=== PATIENT | male | born 1950 | race Caucasian/White ===

== ENCOUNTER 2022-11-20 08:06 | Outpatient (REF) | payer OTHER, SELFPAY ==
[2022-11-20 08:23] LABS: MANUAL DIFF FLAG NO
[2022-11-20 08:51] LABS: Appearance Urine Turbid; Color Urine Yellow; Glucose Urine UA Negative (Negative); Leukocyte Esterase Urine Large (3+) (Negative); Nitrite Urine Positive (Negative); PH 5.5 (5.0-9.0); UMIC TRIGGER UACC YES; Urine Blood Moderate (2+) (Negative); Urine Ketones Trace mg/dL (Negative); Urine Protein Trace mg/dL (Neg-Trace)
[2022-11-20 09:03] LABS: Bacteria Urine 4+ (None Seen); Hyaline Casts Urine 0-2 /LPF (0-2); Squamous Epithelial Cell Urine 0-2 /HPF (0-2); UACC Culture Trigger YES; WBC Urine >50 /HPF (0-5)
[2022-11-20 09:10] LABS: Estimated Average Glucose 111 mg/dL; Hemoglobin A1c % 5.5 %
[2022-11-20 09:42] LABS: Alanine Aminotransferase 31 U/L (0-40); Albumin Level 4.4 g/dL (3.5-5.0); Alkaline Phosphatase 59 U/L (39-117); Anion Gap 13 (12-20); Aspartate Amino Transferase 24 U/L (5-37); Bilirubin Total 0.6 mg/dL (0.0-1.0); Blood Urea Nitrogen 16 mg/dL (9-16); Calcium 9.5 mg/dL (8.4-10.2); Carbon Dioxide 24 mmol/L (22-29); Chloride 109 mmol/L (96-108); Cholesterol 208 mg/dL; Estimated Glomerular Filt Rate > 60; Glucose Fasting 117 mg/dL (60-99); HDL Cholesterol 49 mg/dL; LDL Cholesterol Calculated 145 mg/dl; Potassium 4.6 mmol/L (3.3-5.1); Prostate Specific Antigen 13.47 ng/mL (<0.05-4.0); Sodium 141 mmol/L (135-145); TSH reflex Free T4 1.44 uIU/mL (0.32-4.0); Total Protein 6.6 g/dL (6.5-8.0); Triglycerides 73 mg/dL; Vitamin D 25-OH Total 22.5 ng/mL (>30)
[2022-11-20 11:57] LABS: Basophils Absolute Auto 0.1 X10*3/uL (0.0-0.2); Eosinophils Absolute Auto 0.2 X10*3/uL (0.0-0.4); Eosinophils Percent Auto 1.9 % (0-4); Hematocrit 47.6 % (42.0-52.0); Hemoglobin 16.5 g/dl (14.0-18.0); Imm Gran Abs Auto 0.05 X10*3/uL (0.00-0.03); Imm Gran Pct Auto 0.5 % (0.0-0.4); Lymphocytes Absolute Auto 2.7 X10*3/uL (1.2-4.9); Lymphocytes Percent Auto 27.8 % (20-40); Mean Corpuscular HGB Conc 34.7 g/dl (31.0-36.0); Mean Corpuscular Hemoglobin 32.2 pg (27.0-33.0); Mean Corpuscular Volume 92.8 fL (80.0-98.0); Mean Platelet Volume 12.1 fL (9.4-12.4); Monocytes Absolute Auto 0.9 X10*3/uL (0.1-1.2); Monocytes Percent Auto 9.8 % (2-11); Neutrophils Absolute Auto 5.7 x10*3/uL (2.0-8.3); Platelet Count 297 X10*3/uL (160-400); Red Blood Count 5.13 X10*6/uL (4.60-5.80); Red Cell Distribution Width 12.3 % (11.0-16.0); White Blood Count 9.6 X10*3/uL (4.8-10.8)
[2022-11-20 12:51] LABS: Erythrocyte Sedimentation Rate 2 MM/HR (0-15)
== END 2022-11-20 08:07 | disposition home or self-care (01) ==
LOC: HO.LAB 08:06
PROVIDERS: PCP Internal Medicine; Visit Provider Internal Medicine
DX: Z00.00 Encounter for general adult medical examination without abnormal findings (principal); Z12.5 Encounter for screening for malignant neoplasm of prostate; E78.00 Pure hypercholesterolemia, unspecified; E55.9 Vitamin D deficiency, unspecified; R73.9 Hyperglycemia, unspecified; H10.10 Acute atopic conjunctivitis, unspecified eye; N40.0 Benign prostatic hyperplasia without lower urinary tract symptoms
CPT/HCPCS: 36415; 80053; 80061; 81001; 82306; 83036; 84153; 84443; 85025; 85652; 87086; 87147

== ENCOUNTER → 2022-12-22 08:38 | Outpatient (BNVA) | payer OTHER, SELFPAY | PROVIDERS: PCP Internal Medicine; Visit Provider Nurse Practitioner Family | DX: Z13.89 Encounter for screening for other disorder (principal) ==

== ENCOUNTER 2022-12-25 09:31 | Outpatient (REF) | payer OTHER, SELFPAY ==
[2022-12-25 10:56] LABS: PSA,Total (Free>4and<10) 15.19 ng/mL (0.00-4.00)
== END 2022-12-25 09:32 | disposition home or self-care (01) ==
LOC: HO.LAB 09:31
PROVIDERS: PCP Internal Medicine; Visit Provider Nurse Practitioner Family
DX: Z12.5 Encounter for screening for malignant neoplasm of prostate (principal); R97.20 Elevated prostate specific antigen [PSA]
CPT/HCPCS: 36415; 84153

== ENCOUNTER → 2023-01-06 15:38 | Outpatient (BNVA) | payer OTHER, SELFPAY | PROVIDERS: PCP Internal Medicine; Visit Provider Nurse Practitioner Family | DX: Z13.89 Encounter for screening for other disorder (principal) ==

== ENCOUNTER 2023-01-27 07:14 | Outpatient (REF) | payer OTHER, SELFPAY ==
[2023-01-27 07:47] VITALS: BMI 26.6
[2023-01-27 07:48] VITALS: BP 164/77; PULSE 84; RESP 16; TEMP 36.9; O2SAT 95
--- NOTE | 2023-01-27 08:27 | W.PM.OPN ---
Operative Note Operative Note Date of Service: 01/27/23 Narrative: Preoperative diagnosis: Elevated PSA Postoperative diagnosis: Elevated PSA Procedure: 1. transrectal ultrasound measurement of prostate 2. transrectal ultrasound-guided pudendal nerve block 3. transrectal ultrasound-guided prostate biopsy 12 core Surgeon: Dr. Ac Velasquez Anesthetic: Local Indications for procedure: Elevated PSA 15 Procedure: After informed consent was verified, the patient was brought into the procedure area and lay left-hand side down on the table. Patient identity confirmed. Perioperative antibiotics confirmed. Safety pause time out performed. JAYANT performed to dilate rectal sphincter Iodine 10cc with Gel was placed per rectum Ultrasound probe was placed per rectum The prostate was measured in 3 dimensions Total volume equals 40 gm No cystic structures were noted surgical capsule calcifications were noted at the surgical margin The prostate was otherwise homogeneous in nature An ultrasound-guided pudendal nerve block was performed using 10 cc of 1% lidocaine. 8 cc was placed at the base and 2 cc of the apex. A 12 core biopsy was performed with 6 cores each side. Two cores were taken at the apex, mid and base. Cores were spaced between lateral and medial. He tolerated the procedure well. Was able to ambulate to bathroom after 5 minutes. Printed instructions regarding antibiotic use and common side effects such as low-grade temperature, potential infection and bleeding were given Pathology: 12 core prostate biopsy.
[2023-01-27 08:35] VITALS: BP 172/84; PULSE 83; RESP 16; O2SAT 97
== END 2023-01-27 07:15 | disposition home or self-care (01) ==
LOC: HO.MS 07:14
PROVIDERS: PCP Internal Medicine; Visit Provider Urology
PROC: (CPT 55700; principal; 2023-01-27 08:00)
DX: R97.20 Elevated prostate specific antigen [PSA] (principal); C61 Malignant neoplasm of prostate
CPT/HCPCS: 55700; 76942; 88305

== ENCOUNTER → 2023-02-03 11:21 | Outpatient (BNVA) | payer OTHER, SELFPAY | PROVIDERS: PCP Internal Medicine; Visit Provider Urology | DX: Z13.89 Encounter for screening for other disorder (principal) ==

== ENCOUNTER → 2023-02-15 10:39 | Outpatient (REF) | payer OTHER, SELFPAY ==
--- NOTE | ~2023-02-15 | NM_ITS ---
EXAMINATION: NM BONE SCAN OF THE WHOLE BODY CLINICAL INFORMATION: Malignant neoplasm of prostate. COMPARISON: No existing relevant imaging study available. TECHNIQUE: Multiple gamma scintillation camera images of the whole body were performed 2.75 hours following the intravenous administration of 26 mCi Tc-99m MDP. The radiotracer was injected through left antecubital superficial vein without complications. FINDINGS: In the head, asymmetric small focal increased radiotracer activity is present overlying the left maxilla/zygomatic bone. In the thoracic cage and upper extremities, asymmetric increased radiotracer activity is present at medial end of the right clavicle/right sternoclavicular joint region. Mildly increased radiotracer activities around both shoulders likely represent mild degenerative and/or arthritic or posttraumatic changes. In the spine, no suspicious focal abnormality. Mild increase radiotracer activity at the right upper cervical spine and left lower lumbar spine likely represent degenerative changes. In the pelvis, no suspicious focal abnormalities. In the lower extremities, mild periarticular increased radiotracer activities are present around both knees and both feet, most consistent with posttraumatic, degenerative and/or arthritic changes. No other definite bony abnormalities are noted. The urinary bladder and faint visualization of both kidneys are noted. NM/NM bone scan whole body IMPRESSION: 1. Asymmetric focal increased radiotracer activity in the region of the medial end of the right clavicle/sternoclavicular joint region and asymmetric focal activity in the region of the left axilla/zygomatic bone are nonspecific. There are no prior studies available at the moment for comparison. The study was read without the benefit of comparison with prior studies. Radiographic correlation is recommended. Follow-up PSMA PET/CT study may also be considered for further clarification. 2. Focal increased radiotracer activities within the upper cervical and lower lumbar spine likely present degenerative changes. 3. Likely degenerative, posttraumatic and/or nonspecific arthritic changes involving both shoulders and both knees and both feet.
== END ==
LOC: HO.NUCMED 10:39
PROVIDERS: Visit Provider Urology
DX: C61 Malignant neoplasm of prostate (principal); C79.51 Secondary malignant neoplasm of bone
CPT/HCPCS: 78306; A9503

== ENCOUNTER → 2023-02-24 13:36 | Outpatient (BNVA) | payer OTHER, SELFPAY | PROVIDERS: PCP Internal Medicine; Visit Provider Urology | DX: C61 Malignant neoplasm of prostate (principal) | CPT/HCPCS: 96402; J9217 ==

== ENCOUNTER → 2023-03-18 13:05 | Outpatient (BNVA) | payer OTHER, SELFPAY | PROVIDERS: PCP Internal Medicine; Visit Provider Urology | DX: Z13.89 Encounter for screening for other disorder (principal) ==

== ENCOUNTER 2023-03-22 11:32 | Outpatient (AMB) | payer OTHER, SELFPAY ==
--- NOTE | 2023-03-22 11:33 | MHC.OFFVIS ---
Intake Intake Visit Reasons: CT Follow Up (set) Intake Note: Patient is present for Telephone CT Scan follow up Urology Med: Bicalutamide Antibiotic Allergy: None Blood Thinner: None Allergies No Known Allergies Allergy (Mild, Verified 07/26/23 16:32) NKA HPI HPI Comments History of Present Illness Details Narayan is a patient male. He is a patient of Dr. Villasenor. He is seen for following urologic conditions - prostate cancer Telemedicine Evaluation 15 min Consultation Doximity [place] Video attempted Complete evaluation with Radiation Oncology - [facility] radiation oncology Is a suitable candidate for external beam radiation to prostate and pelvic lymph nodes Will require GnRH injections to cover 18-24 months Marker placement to be organized - plan for maximum androgen blockade with XRT Still working putting an overhead garage doors Prostate Cancer - 02/17 - high volume, high risk - 1st GnRH 03/20 PSA at diagniosis 15 Histologic type: Prostatic acinar adenocarcinoma: Thibodaux score: 3+4+7 (F); 4+3+7 (A, C, D, E,J and L); 4+4=8 (H, I, K); 4+5=9 (B) Total Cores 12 Positive Cores 12 % volume 910/1200 Periprostatic fat inv.: Not identified Seminal vesicle inv.: Not identified Perineural inv.: Present LVI: Not identified Clinical T2c - JAYANT bilateral prostate firmness Initial Staging - 02/17 bone scan degenerative changes consistent with arthritis. No evidence of metastatic prostate cancer - 03/20 CT scan pelvis no evidence of lymphadenopathy, no evidence of metastatic disease PFSH Medical History (Updated 07/26/23 @ 18:32 by Nikos Villasenor MD) Coronary atherosclerosis GERD (gastroesophageal reflux disease) Hx of coronary angiogram Insomnia Prostate cancer Pure hypercholesterolemia Surgical History (Updated 07/26/23 @ 18:15 by Nikos Villasenor MD) History of inguinal hernia repair History of right inguinal hernia repair (~04/2009) History of tonsillectomy and adenoidectomy S/P drug eluting coronary stent placement (~03/25/23) Stented coronary artery Family History Father No problems noted. Mother No problems noted. Social History (Updated 07/26/23 @ 18:35 by Nikos Villasenor MD) Housing: Apartment Patient Tobacco Use Status: Former Tobacco user e-Cigarette/Vaping Use: Never Used service: No Current occupational status: employed Cognitive needs: No Hearing needs: No Vision needs: No Review of Systems Const All systems reviewed & are unremarkable except as noted in HPI and below Reports no additional complaints Resp Reports no additional complaints GI Reports no additional complaints Reports as per HPI Musc Reports no additional complaints Physical Exam Telemedicine evaluation Appropriate responses Regular breathing rate and rhythm HEENT Head: Yes normal to inspection Ears: hearing grossly normal bilaterally Eyes General: appearance normal, both eyes and all related structures Neck Neck: Yes normal visual inspection Chest Chest palpation & inspection: normal inspection of the chest Resp Effort & Inspection: normal respiratory effort and able to speak in complete sentences Assessment & Plan Assessment & Plan (1) Prostate cancer: Comment: 02/17 high-grade, high-volume Code(s): C61 - Malignant neoplasm of prostate Plan Risks, benefits and alternatives to therapy were discussed. These include but are not limited to infection, bleeding, damage to local organs and tissues, need for further interventions. Anesthetic risks regarding cardiac arrhythmia, blood clots, and potential mortality were discussed. The patient understands the typical recovery time and the outpatient nature of the procedure. After consideration of these risks the patient gives full informed consent and they wish to move ahead with the procedure. Marker seed placement prostate Patient Instructions: Imaging studies, laboratory and physical exam results were discussed and reviewed in detail. No major barriers to patient understanding were identified. An opportunity to ask questions regarding the treatment plan was provided. All questions were answered. The patient expressed understanding and agreement with the above treatment plan. The patient is aware they should contact our office by phone for worsening of their current condition or the appearance of new urologic symptoms. Compliance is encouraged with any medications and followup testing that is ordered. It is a privilege to participate in the urologic care of your patient. If you have any questions or concerns regarding treatment for the above conditions, or other urologic issues, please do not hesitate to contact me. The office telephone contact is [phone]. This note is constructed using voice recognition software. While every effort has been made to ensure accuracy fleet administrative assistant errors may have been included. Yours sincerely, Dr Ac Velasquez MD, [facility] - Urology Providers of expert, compassionate care for the genitourinary system Telehealth Telehealth Location of provider rendering services: practice address Location of patient: address on file Patient Identification confirmed using: Name, : Yes Telehealth method: video Patient verbally consented to treatment: Yes Patient verbally consented to billing insurance company: Yes Patient informed of any privacy concerns related to visit: Yes Coding Level of Care Code Tele Est Pt Level 4 (56609) Diagnoses Prostate cancer C61
== END 2023-03-22 13:25 | disposition home or self-care (01) ==
LOC: HO.HUSH 11:32
PROVIDERS: PCP Internal Medicine; Visit Provider Urology
DX: C61 Malignant neoplasm of prostate (principal)
CPT/HCPCS: 99214

== ENCOUNTER → 2023-03-22 11:32 | Outpatient (BNVA) | payer OTHER, SELFPAY | PROVIDERS: PCP Internal Medicine; Visit Provider Urology | DX: Z13.89 Encounter for screening for other disorder (principal) ==

== ENCOUNTER 2023-04-13 12:41 | Outpatient (AMB) | payer OTHER, SELFPAY ==
[2023-04-13 12:43] VITALS: BP 124/90; PULSE 64; O2SAT 99; BMI 25.7
--- NOTE | 2023-04-13 12:43 | MHC.PC.OV ---
Vital Signs 04/13/23 12:43 Height 5 ft 6 in Weight 159 lb 6 oz BMI 25.7 BP 124/90 H Blood Pressure Location Lt brachial Position Sitting Pulse 64 Pulse Source Pulse Oximeter Pulse Oximetry (%) 99 Oxygen Delivery Method Room Air Intake Visit Reasons: [facility] [place]/26[place]23 Heart Attack Intake Note: Patient is here for a discharge follow up from [facility] due to heart attack. [employer] Wafer Required: No Accompanied by: Self / Same As Patient Allergies No Known Allergies Allergy (Mild, Verified 07/26/23 16:32) NKA Medication List - Last Reconciled 04/13/23 by Nikos Villasenor MD bicalutamide 50 mg PO DAILY bicalutamide 50 mg PO DAILY 90 days clotrimazole-betamethasone 1-0.05 % 1 appl topical BID 4 weeks famotidine (Acid Irradiated Fuel Handler (famotidine)) 10 mg PO DAILY levofloxacin 500 mg PO daily 3 days Tobacco use date assessed: 04/13/23 Fall risk assessment: No Falls in past year HPI [facility] 03/26/23 Heart Attack HPI Details Patient comes in today for his HDF follow up visit Was discharged from [facility] a couple of weeks ago Patient initially went to the emergency room at [facility] last month for chest pain He was found to be in NSTEMI and was immediately transferred to [facility] for cardiac workup and intervention He underwent cardiac catheterization on 03/25/2023 and was found to have complete obstruction of the proximal OM1 and this was stented States that his symptoms improved significantly with coronary intervention He was started on Brilinta, high-dose Atorvastatin and low-dose Aspirin, which he is currently still on He was diagnosed with prostate cancer a couple of months ago and was supposed to start treatment but this is now on hold due to his recent [place] Patient relates experiencing increased fatigue but states that he feels okay otherwise He denies any headaches or dizziness Denies any chest pains, no shortness of breath No nausea/ vomiting, no abdominal pain No change in bowel habits noted States that he has been started on several new medications and he will need all of his Rx refilled today PFSH Medical History (Updated 07/26/23 @ 18:32 by Nikos Villasenor MD) Coronary atherosclerosis GERD (gastroesophageal reflux disease) Hx of coronary angiogram Insomnia Prostate cancer Pure hypercholesterolemia Surgical History (Updated 07/26/23 @ 18:15 by Nikos Villasenor MD) History of inguinal hernia repair History of right inguinal hernia repair (~04/2009) History of tonsillectomy and adenoidectomy S/P drug eluting coronary stent placement (~03/25/23) Stented coronary artery Family History Father No problems noted. Mother No problems noted. Social History (Updated 07/26/23 @ 18:35 by Nikos Villasenor MD) Housing: Apartment Patient Tobacco Use Status: Former Tobacco user e-Cigarette/Vaping Use: Never Used service: No Current occupational status: employed Cognitive needs: No Hearing needs: No Vision needs: No Questionnaire PHQ-9 Over the last 2 weeks, how often have you been bothered by any of the following problems? 1. Little interest or pleasure in doing things: not at all 2. Feeling down, depressed, or hopeless: not at all 3. Trouble falling or staying asleep, or sleeping too much: not at all 4. Feeling tired or having little energy: not at all 5. Poor appetite or overeating: not at all 6. Feeling bad about yourself - or that you are a failure or have let yourself or your family down: not at all 7. Trouble concentrating on things, such as reading the newspaper or watching television: not at all 8. Moving or speaking so slowly that other people could have noticed. Or the opposite - being so fidgety or restless that you have been moving around a lot more than usual: not at all 9. Thoughts that you would be better off or of hurting yourself in some way: not at all Total score: 0 Depression Screening Interpretation: Negative 48091 - PHQ-9 Billing: Yes Source: Developed by Drs. Amadou Canas, Katharine Lamb, Walter Gupta and colleagues, with an educational aimee from [employer]. Thrive Questionnaire Date Thrive assessed: 04/13/23 I am a: Patient What is your living situation today?: I have a steady place to live Within the past 12 months, did the food you bought not last and you didn't have the money to get more?: Never true Within the past 12 months, did you worry whether your food would run out before you got money to buy more?: Never true Do you have trouble paying for medicines?: No Do you have trouble getting transportation to medical appointments?: No Do you have trouble paying your heating and electricity bill?: No Do you have trouble taking care of your child, family member or friend?: No Do you have trouble with day-to-day activities such as bathing, preparing meals, shopping, managing finances, etc.?: No Are you currently unemployed and looking for a job?: No Are you interested in more education?: No Currently or been in a relationship where the following occur: no concerns reported AUDIT C Alcohol Use Questionnaire (AUDIT-C) 1. How often do you have a drink containing alcohol?: 4 or more times a week 2. How many drinks containing alcohol do you have on a typical day when you are drinking?: 1 or 2 3. How often do you have six or more drinks on one occasion?: Never Total Score: 4 Score Reviewed/Action Taken: Yes RAUL-7 AMB Questionnaire RAUL-7 Date RAUL - 7 assessed: 04/13/23 Feeling nervous, anxious, or on edge: 0 = Not at all Not being able to stop or control worryin = Not at all Worrying too much about different things: 0 = Not at all Trouble relaxin = Not at all Being so restless that it is hard to sit still: 0 = Not at all Becoming easily annoyed or irritable: 0 = Not at all Feeling afraid as if something awful might happen: 0 = Not at all Total RAUL-7 score (0-4 normal; 5-9 mild; 10-14 moderate; 15-21 severe): 0 Source: Developed by Drs. Amadou Canas, Katharine Lamb, Walter Gupta and colleagues, with an educational aimee from [employer]. Review of Systems Const Denies chills, Reports fatigue, Denies fever(s) and Denies headache(s) ENT Denies dysphagia, Denies dizziness, Denies otalgia, Denies headache(s), Denies neck pain, Denies odynophagia and Denies sore throat Card Denies chest pain, Denies palpitations and Denies dyspnea Resp Denies cough and Denies dyspnea GI Denies abdominal pain, Denies constipation, Denies dysphagia, Denies heartburn, Denies diarrhea, Denies nausea, Denies odynophagia and Denies vomiting Denies dysuria, Denies nocturia and Denies urinary frequency Musc Denies neck pain Neuro Denies dizziness and Denies headache(s) Endo Reports fatigue and Denies palpitations Physical exam (Primary Care) Vital Signs: Last Vital Signs Pulse 64 04/13/23 12:43 BP 124/90 H 04/13/23 12:43 Pulse Ox 99 04/13/23 12:43 Oxygen Delivery Method Room Air 04/13/23 12:43 BMI result Body Mass Index 25.7 Tobacco/Smoking Status: Tobacco use Status Tobacco use date assessed 04/13/23 04/13/23 12:58 Patient Tobacco Use Status Never used Tobacco 04/13/23 12:58 e-Cigarette/Vaping Use Never Used 04/13/23 12:58 PHQ-9: PHQ-9 Score PHQ-9: Total score 0 07/26/23 19:25 Depression Screening Interpretation: Negative Thrive Assessment: Date of Thrive Assessment Date Thrive assessed 04/13/23 04/13/23 12:58 Currently or been in a relationship where the following occur: no concerns reported Const General: no acute distress and alert HENMT Ears: TM's normal bilaterally and EAC's normal Throat: Yes posterior oropharynx normal and Yes tonsils normal (no TP congestion) Neck Neck: Yes no lymphadenopathy and Yes supple Resp Auscultation: clear to auscultation bilaterally, no rales and no wheezes Cardio Rate: regular rate Rhythm: regular rhythm Heart sounds: no murmurs GI Palpation (GI): Soft to palpation and nontender Auscultation: normal bowel sounds Skin General skin exam: no rashes or lesions noted Extrem General: Yes no clubbing, cyanosis or edema Assessment and Plan Assessment & Plan (1) Coronary atherosclerosis: Comment: NSTEMI on 03/24/2023; cardiac cath done on 03/25/23 revealed 100% stenosis of proximal OM1 - S/P KERRY Code(s): I25.10 - Atherosclerotic heart disease of [place] coronary artery without angina pectoris Qualifiers: Coronary Disease-Associated Artery/Lesion type: [place] artery [place] vs. transplanted heart: [place] heart Associated angina: without angina Qualified Code(s): I25.10 - Atherosclerotic heart disease of [place] coronary artery without angina pectoris Plan: S/P NSTEMI in 02/2023; S/P KERRY to proximal OM1 Continue Brilinta 90 mg BID, Aspirin 81 mg QD and Metoprolol 12.5 mg BID Follow up with cardiology as scheduled (2) Pure hypercholesterolemia: Code(s): E78.00 - Pure hypercholesterolemia, unspecified Plan: Reinforced low cholesterol diet Continue Atorvastatin 80 mg QD Will recheck his labs and fasting lipids in 3 months for follow up (3) Prostatic adenocarcinoma: Code(s): C61 - Malignant neoplasm of prostate Plan: Was diagnosed a couple of months ago; Tx is now on hold due to his recent [place] Continue Bicalutamide 50 mg QD for now Follow up with urology as scheduled (4) GERD (gastroesophageal reflux disease): Code(s): K21.9 - Gastro-esophageal reflux disease without esophagitis Qualifiers: Esophagitis presence: without esophagitis Qualified Code(s): K21.9 - Gastro-esophageal reflux disease without esophagitis Plan: Dietary restrictions reinforced Continue Famotidine 10 mg QD PRN (5) Insomnia: Code(s): G47.00 - Insomnia, unspecified Qualifiers: Insomnia type: unspecified Qualified Code(s): G47.00 - Insomnia, unspecified Plan: Sleep hygiene reinforced Continue Trazodone 50 mg Q HS PRN Plan Follow up in 3 months Orders: Orders Complete Blood Count Auto Diff 3 Months I10 - Essential (primary) hypertension Comprehensive [place]. Panel Fast 3 Months E78.00 - Pure hypercholesterolemia, unspecified Lipid Panel 3 Months E78.00 - Pure hypercholesterolemia, unspecified Vitamin D 25-OH Total 3 Months E55.9 - Vitamin D deficiency, unspecified Medications: New trazodone 50 mg PO BEDTIME PRN 30 tabs 2RF insomnia 30 days G47.00 - Insomnia, unspecified atorvastatin 80 mg PO BEDTIME 90 tabs 3RF 90 days metoprolol tartrate 12.5 mg (1/2 x 25 mg) PO BID 90 tabs 3RF 90 days aspirin 81 mg PO DAILY 90 tabs 3RF 90 days ticagrelor (Brilinta) 90 mg PO BID 60 tabs 3RF 30 days Coding Level of Care Code Est Pt Level 4 (79222) Diagnoses Coronary atherosclerosis I25.10 Coronary Disease-Associated Artery/Lesion type: [place] artery [place] vs. transplanted heart: [place] heart Associated angina: without angina Pure hypercholesterolemia E78.00 Prostatic adenocarcinoma C61 GERD (gastroesophageal reflux disease) K21.9 Esophagitis presence: without esophagitis Insomnia G47.00 Insomnia type: unspecified
== END 2023-04-13 13:36 | disposition home or self-care (01) ==
LOC: HO.HMGH 12:41
PROVIDERS: PCP Internal Medicine; Visit Provider Internal Medicine
DX: I25.10 Atherosclerotic heart disease of native coronary artery without angina pectoris (principal); E78.00 Pure hypercholesterolemia, unspecified; C61 Malignant neoplasm of prostate; K21.9 Gastro-esophageal reflux disease without esophagitis; G47.00 Insomnia, unspecified
CPT/HCPCS: 99214

== ENCOUNTER 2023-06-22 14:35 | Outpatient (AMB) | payer OTHER, SELFPAY ==
--- NOTE | 2023-06-22 14:39 | MHC.OFFVIS ---
Intake Vital Signs 06/22/23 14:55 Height 5 ft 6 in Weight 161 lb 6.054 oz BMI 26.0 BP 100/62 Blood Pressure Location Lt brachial Position Sitting Pulse 79 Intake Visit Reasons: NPV/[place]/coronary angioplasty implant Intake Note: NPV w/ EKG Slitter Processed Film Required: No Accompanied by: Self / Same As Patient Allergies No Known Allergies Allergy (Mild, Verified 06/22/23 14:55) NKA Medication List - Last Reconciled 06/22/23 by Patel Ledesma MD aspirin 81 mg PO DAILY 90 days atorvastatin 80 mg PO BEDTIME 90 days bicalutamide 50 mg PO DAILY bicalutamide 50 mg PO DAILY clotrimazole-betamethasone 1-0.05 % 1 appl topical BID 4 weeks famotidine (Acid Central Office Equipment Installer (famotidine)) 10 mg PO DAILY levofloxacin 500 mg PO daily 3 days metoprolol tartrate 12.5 mg (1/2 x 25 mg) PO BID 90 days ticagrelor (Brilinta) 90 mg PO ONCE trazodone 50 mg PO BEDTIME PRN 30 days HPI HPI Comments History of Present Illness Details Narayan is here for consultation regarding coronary artery disease. [facility] documentation was reviewed. It seems that he initially went to [facility] in February with an NSTEMI. Then transferred to [facility]. Underwent cardiac catheterization and stenting of the OM1. Overall, he is generally doing okay. No clear anginal-type symptoms. Only issues generalized fatigue and tiredness. Otherwise, he also has prostate cancer and being treated for the same at Urology. [facility] Medical History (Updated 04/13/23 @ 13:24 by Nikos Villasenor MD) GERD (gastroesophageal reflux disease) Insomnia Surgical History History of inguinal hernia repair History of right inguinal hernia repair (~04/2009) History of tonsillectomy and adenoidectomy Family History Father No problems noted. Mother No problems noted. Social History Housing: Apartment Patient Tobacco Use Status: Never used Tobacco e-Cigarette/Vaping Use: Never Used service: No Current occupational status: employed Cognitive needs: No Hearing needs: No Vision needs: No Review of Systems Const Denies chills, Denies daytime sleepiness, Denies fatigue, Denies fever(s), Denies frequent falls, Denies night sweats, Denies snoring, Denies weakness, Denies weight gain and Denies weight loss Eyes Denies loss of vision ENT Denies dizziness and Denies hearing loss Card Denies chest pain, Denies chest pain with activity, Denies syncope, Denies rapid heart rate, Denies edema, Denies claudication, Denies leg edema, Denies lightheadedness, Denies palpitations, Denies dyspnea, Denies dyspnea on exertion and Denies orthopnea Resp Denies cough, Denies excessive phlegm production, Denies dyspnea, Denies dyspnea on exertion, Denies snoring and Denies wheezing GI Denies abdominal pain, Denies hematochezia, Denies change in bowel habits, Denies change in stool character, Denies heartburn, Denies nausea and Denies vomiting Denies hematuria, Denies dysuria and Denies urinary frequency Musc Denies arthralgias, Denies muscle weakness, Denies numbness and Denies tingling Skin/Breast Denies nail changes and Denies rash Neuro Denies Abnormal speech present, Denies dizziness, Denies syncope, Denies frequent falls, Denies loss of vision, Denies memory loss, Denies numbness, Denies tingling and Denies weakness Psych Denies depression and Denies memory loss Endo Denies fatigue and Denies palpitations Aller/Immun Denies wheezing Physical Exam Vital Signs: Last Vital Signs Pulse 79 06/22/23 14:55 BP 100/62 06/22/23 14:55 BMI result Body Mass Index 26.0 Const General: comfortable and no acute distress Orientation/consciousness: patient oriented x3 HEENT Other: Unremarkable Head: Yes normal to inspection Neck Neck: Yes normal visual inspection Chest Chest palpation & inspection: normal inspection of the chest Resp Auscultation: clear to auscultation bilaterally Cardio Palpation: normal PMI Heart sounds: S1 normal heart sound present, S2 normal heart sound present, no gallops, no murmurs and no rubs GI Palpation (GI): Soft to palpation Back/Spine/Pelvis Other: unremarkable Skin General skin exam: no rashes or lesions noted Neuro General: patient oriented x3 Speech: No Abnormal speech present Extrem General: Yes normal to inspection Psych Mental Status: mental status grossly normal Office Procedures EKG Details: EKG with sinus rhythm at 79/Min; no significant ST-T changes and otherwise unremarkable. [place]. [id number], Complete Assessment & Plan Assessment & Plan (1) Coronary atherosclerosis: Code(s): I25.10 - Atherosclerotic heart disease of [place] coronary artery without angina pectoris (2) Stented coronary artery: Code(s): Z95.5 - Presence of coronary angioplasty implant and graft (3) Prostate cancer: Comment: 02/17 high-grade, high-volume Code(s): C61 - Malignant neoplasm of prostate Plan [facility] documentation was reviewed. Culprit lesion was thrombotic occlusion of proximal OM 1, status post PCI. Otherwise, proximal RCA with 40% stenosis. Mid LAD 40% stenosis. Mid D2 50% stenosis. Echocardiogram with LVEF of 40-50%. Severe hypokinesis in the basal to mid inferolateral/anterolateral saunders. Mild aortic valve thickening but no significant stenosis or regurgitation. Severe posterior mitral annular calcification. Overall, he seems to be stable from cardiac standpoint. Continue aspirin long-term. Brilinta probably for 1 year. But he states that it is too expensive and hence consider switching to Plavix. 300 mg loading dose and then 75mg daily. Continue beta-blockers and statins. Follow-up lipids in due course. He states he needs to go for a prostate procedure. Ideally, wait for 6 months from the time of mi/PCI. At that time, possibly interrupt Brilinta or Plavix as required. Medications: Changed From bicalutamide 50 mg PO DAILY 90 days 90 tabs 0RF C61 - Malignant neoplasm of prostate To bicalutamide 50 mg PO DAILY C61 - Malignant neoplasm of prostate From ticagrelor (Brilinta) 90 mg PO ONCE To ticagrelor (Brilinta) 90 mg PO BID Discontinued ticagrelor (Brilinta) Discontinued Reason: Doctor's Order 90 mg PO BID 30 tabs 5RF clopidogrel (Plavix) First day take 300mg (4 tabs) then 1 tablet daily Discontinued Reason: Patient Refused 75 mg PO DAILY 30 tabs 5RF Coding Level of Care Code New Pt Level 4 (70642) Diagnoses Coronary atherosclerosis I25.10 Stented coronary artery Z95.5 Prostate cancer C61 CPT Codes EKG - CPT: 66334-[id number], Complete ([id number])
[2023-06-22 14:55] VITALS: BP 100/62; PULSE 79; BMI 26.0
== END 2023-06-22 15:21 | disposition home or self-care (01) ==
PROVIDERS: Visit Provider Internal Medicine
DX: I25.10 Atherosclerotic heart disease of native coronary artery without angina pectoris (principal); Z95.5 Presence of coronary angioplasty implant and graft; C61 Malignant neoplasm of prostate
CPT/HCPCS: 93010; 99204

== ENCOUNTER → 2023-06-22 14:35 | Outpatient (BNVA) | payer OTHER, SELFPAY | PROVIDERS: Visit Provider Internal Medicine | DX: I25.10 Atherosclerotic heart disease of native coronary artery without angina pectoris (principal); C61 Malignant neoplasm of prostate; Z95.5 Presence of coronary angioplasty implant and graft | CPT/HCPCS: 93005 ==

== ENCOUNTER 2023-07-07 09:13 | Outpatient (AMB) | payer OTHER, SELFPAY ==
--- NOTE | 2023-07-07 09:17 | MHC.OFFVIS ---
Intake Intake Visit Reasons: follow up/surgery consult (had heart attack) Intake Note: Patient is present for Surgey Consult Urology Med: Bicalutamide Antibiotic Allergy: None Blood Thinner: Aspirin Pharmacy: [facility] Patient had recent heart attack in February Patient states that he has been very weak lately, has no energy, states that he feels like he has the flu. He states that he is concerned if this is related to his prostate Allergies No Known Allergies Allergy (Mild, Verified 07/07/23 09:22) NKA Medication List - Last Reconciled 07/07/23 by Ac Velasquez MD aspirin 81 mg PO DAILY 90 days atorvastatin 80 mg PO BEDTIME 90 days bicalutamide 50 mg PO DAILY bicalutamide 50 mg PO DAILY clotrimazole-betamethasone 1-0.05 % 1 appl topical BID 4 weeks famotidine (Acid Head Of Data (famotidine)) 10 mg PO DAILY levofloxacin 500 mg PO daily 3 days metoprolol tartrate 12.5 mg (1/2 x 25 mg) PO BID 90 days ticagrelor (Brilinta) 90 mg PO BID 30 days trazodone 50 mg PO BEDTIME PRN 30 days HPI HPI Comments History of Present Illness Details Narayan is a patient male. He is a patient of Dr. Villasenor. 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 Giuliana score: 3+4+7 (F); 4+3+7 (A, C, D, E,J and L); 4+4=8 (H, I, K); 4+5=9 (B) Total Cores 12 Positive Cores 12 % volume 910/1200 Periprostatic fat inv.: Not identified Seminal vesicle inv.: Not identified Perineural inv.: Present LVI: Not identified Clinical T2c - JAYANT bilateral prostate firmness Initial Staging - 02/17 bone scan degenerative changes consistent with arthritis. No evidence of metastatic prostate cancer - 03/20 CT scan pelvis no evidence of lymphadenopathy, no evidence of metastatic disease PFSH Medical History GERD (gastroesophageal reflux disease) Insomnia Surgical History History of inguinal hernia repair History of right inguinal hernia repair (~04/2009) History of tonsillectomy and adenoidectomy Family History Father No problems noted. Mother No problems noted. Social History Housing: Apartment Patient Tobacco Use Status: Never used Tobacco e-Cigarette/Vaping Use: Never Used service: No Current occupational status: employed Cognitive needs: No Hearing needs: No Vision needs: No Review of Systems Const Denies chills and Denies fever(s) Card Reports no additional complaints and Denies syncope Resp Denies cough GI Denies abdominal pain and Denies heartburn Reports as per HPI and Denies change in libido Neuro Denies syncope Psych Denies change in libido Endo Denies change in libido Physical Exam Const General: cooperative, healthy appearing, comfortable and no acute distress Orientation/consciousness: patient oriented x3 HEENT Face and sinus: Yes normal facial exam Mouth: moist mucous membranes Neck Neck: Yes normal visual inspection, Yes full ROM and Yes trachea midline Chest Chest palpation & inspection: normal inspection of the chest Resp Effort & Inspection: normal respiratory effort, able to speak in complete sentences and no respiratory distress GI Inspection: Yes normal to inspection Back/Spine/Pelvis Cervical Spine: normal cervical lordosis Thoracic/Lumbar Spine: thoracic and lumbar spine normal to inspection Skin General skin exam: no rashes or lesions noted Neuro General: patient oriented x3, gait normal, tone normal and moves all extremities Extrem General: Yes normal to inspection and Yes capillary refill normal Assessment & Plan Assessment & Plan (1) Prostate cancer: Comment: 02/17 high-grade, high-volume Code(s): C61 - Malignant neoplasm of prostate Plan August follow-up with PSA Risks, benefits and alternatives to therapy were discussed. These include but are not limited to infection, bleeding, damage to local organs and tissues, need for further interventions. Anesthetic risks regarding cardiac arrhythmia, blood clots, and potential mortality were discussed. The patient understands the typical recovery time and the outpatient nature of the procedure. After consideration of these risks the patient gives full informed consent and they wish to move ahead with the procedure. Prostate cancer marker seed placement Orders: Orders Testosterone, Total 2 Months C61 - Malignant neoplasm of prostate Prostate Specific Antigen 2 Months C61 - Malignant neoplasm of prostate Medications: Refilled levofloxacin take 1 tablet day before procedure, 1 tablet day of procedure and 1 tablet day after procedure 500 mg PO daily 3 tabs 0RF 3 days C61 - Malignant neoplasm of prostate Patient Instructions: Imaging studies, laboratory and physical exam results were discussed and reviewed in detail. No major barriers to patient understanding were identified. An opportunity to ask questions regarding the treatment plan was provided. All questions were answered. The patient expressed understanding and agreement with the above treatment plan. The patient is aware they should contact our office by phone for worsening of their current condition or the appearance of new urologic symptoms. Compliance is encouraged with any medications and followup testing that is ordered. It is a privilege to participate in the urologic care of your patient. If you have any questions or concerns regarding treatment for the above conditions, or other urologic issues, please do not hesitate to contact me. The office telephone contact is [phone]. This note is constructed using voice recognition software. While every effort has been made to ensure accuracy regulatory manager errors may have been included. Yours sincerely, Dr Ac Velasquez MD, [facility] - Urology Providers of Expert, Compassionate Care for the Genitourinary System Coding Level of Care Code Est Pt Level 4 (83985) Diagnoses Prostate cancer C61
== END 2023-07-07 09:37 | disposition home or self-care (01) ==
PROVIDERS: Visit Provider Urology
DX: C61 Malignant neoplasm of prostate (principal)
CPT/HCPCS: 99214

== ENCOUNTER → 2023-07-07 09:13 | Outpatient (BNVA) | payer OTHER, SELFPAY | PROVIDERS: Visit Provider Urology ==

== ENCOUNTER 2023-07-16 08:01 | Outpatient (REF) | payer OTHER, SELFPAY ==
[2023-07-16 08:31] LABS: MANUAL DIFF FLAG NO
[2023-07-16 09:04] LABS: Basophils Absolute Auto 0.1 X10*3/uL (0.0-0.2); Basophils Percent Auto 0.8 % (0-2); Eosinophils Absolute Auto 0.6 X10*3/uL (0.0-0.4); Eosinophils Percent Auto 5.4 % (0-4); Hemoglobin 14.6 g/dl (14.0-18.0); Imm Gran Pct Auto 0.9 % (0.0-0.4); Lymphocytes Absolute Auto 2.7 X10*3/uL (1.2-4.9); Lymphocytes Percent Auto 25.9 % (20-40); Mean Corpuscular HGB Conc 33.2 g/dl (31.0-36.0); Mean Corpuscular Hemoglobin 31.3 pg (27.0-33.0); Mean Corpuscular Volume 94.4 fL (80.0-98.0); Mean Platelet Volume 11.9 fL (9.4-12.4); Monocytes Percent Auto 9.8 % (2-11); Neutrophils Absolute Auto 6.1 x10*3/uL (2.0-8.3); Neutrophils Percent Auto 57.2 % (45-73); Platelet Count 312 X10*3/uL (160-400); Red Blood Count 4.66 X10*6/uL (4.60-5.80); Red Cell Distribution Width 11.8 % (11.0-16.0); White Blood Count 10.6 X10*3/uL (4.8-10.8)
[2023-07-16 09:38] LABS: Alanine Aminotransferase 43 U/L (0-40); Alkaline Phosphatase 123 U/L (39-117); Anion Gap 13 (12-20); Aspartate Amino Transferase 34 U/L (5-37); Bilirubin Total 0.8 mg/dL (0.0-1.0); Blood Urea Nitrogen 10 mg/dL (9-16); Calcium 9.6 mg/dL (8.4-10.2); Carbon Dioxide 26 mmol/L (22-29); Chloride 106 mmol/L (96-108); Cholesterol 120 mg/dL; Estimated Glomerular Filt Rate > 60; Glucose Fasting 102 mg/dL (60-99); HDL Cholesterol 38 mg/dL; LDL Cholesterol Calculated 62 mg/dl; Potassium 4.2 mmol/L (3.3-5.1); Sodium 141 mmol/L (135-145); Total Protein 6.8 g/dL (6.5-8.0); Triglycerides 102 mg/dL
[2023-07-16 09:54] LABS: Prostate Specific Antigen 0.12 ng/mL (<0.05-4.0)
[2023-07-16 09:55] LABS: Vitamin D 25-OH Total 40.6 ng/mL (>30)
[2023-07-16 10:13] LABS: Appearance Urine Clear; Color Urine Yellow; Glucose Urine UA Negative (Negative); Leukocyte Esterase Urine Small (1+) (Negative); Nitrite Urine Negative (Negative); PH 5.5 (5.0-9.0); UMIC TRIGGER UACC YES; Urine Blood Trace (Negative); Urine Ketones Negative (Negative); Urine Protein Negative (Neg-Trace)
[2023-07-16 10:19] LABS: Bacteria Urine None Seen (None Seen); Hyaline Casts Urine 0-2 /LPF (0-2); Squamous Epithelial Cell Urine 0-2 /HPF (0-2); UACC Culture Trigger YES; WBC Urine 21-50 /HPF (0-5)
[2023-07-20 22:38] LABS: Testosterone, Total 26 ng/dL (250-1100)
== END 2023-07-16 08:02 | disposition home or self-care (01) ==
LOC: HO.LAB 08:01
PROVIDERS: Urology; PCP Internal Medicine; Visit Provider Internal Medicine
DX: C61 Malignant neoplasm of prostate (principal); E55.9 Vitamin D deficiency, unspecified; E78.00 Pure hypercholesterolemia, unspecified; I10 Essential (primary) hypertension; Z12.5 Encounter for screening for malignant neoplasm of prostate; R30.0 Dysuria
CPT/HCPCS: 36415; 80053; 80061; 81001; 82306; 84153; 84403; 85025; 87086; 87147

== ENCOUNTER 2023-07-19 07:20 | Outpatient (REF) | payer OTHER, SELFPAY ==
[2023-07-19 07:38] VITALS: BMI 26.0
[2023-07-19 07:42] VITALS: BP 131/77; PULSE 85; RESP 16; TEMP 36.1; O2SAT 98
--- NOTE | 2023-07-19 08:18 | W.PM.OPN ---
Operative Note Operative Note Date of Service: 07/19/23 Narrative: Preoperative diagnosis: Prostate cancer Postoperative diagnosis: Prostate cancer Procedure: 1. Transrectal ultrasound-guided pudendal nerve block 2. Transrectal ultrasound-guided visicoil seed placement Surgeon: Dr. Ac Velasquez Anesthetic: Local Indications for procedure: Prostate Cancer Procedure: After informed consent was verified, the patient was brought into the procedure area and lay left-hand side down on the table. Patient identity confirmed. Perioperative antibiotics confirmed. Gel was placed per rectum Ultrasound probe was placed per rectum A ultrasound-guided pudendal nerve block was performed using 10 cc of 1% lidocaine. 8 cc was placed at the base and 2 cc of the apex. 2 visicoil seed markers placed. 1 on the right, 1 on the left. The purpose is for triangulation. He tolerated the procedure well. Was able to ambulate to bathroom after 5 minutes. Printed instructions regarding antibiotic use and common side effects such as low-grade temperature and bleeding were given
[2023-07-19 08:20] VITALS: BP 140/69; PULSE 76; RESP 16; O2SAT 100
== END 2023-07-19 07:21 | disposition home or self-care (01) ==
LOC: HO.MS 07:20
PROVIDERS: PCP Internal Medicine; Visit Provider Urology
PROC: (CPT 55876; principal; 2023-07-19 08:00)
DX: C61 Malignant neoplasm of prostate (principal)
CPT/HCPCS: 55876; 76942; A4648

== ENCOUNTER → 2023-07-19 07:20 | Outpatient (BNV) | payer OTHER, SELFPAY | PROVIDERS: PCP Internal Medicine; Visit Provider Urology | DX: C61 Malignant neoplasm of prostate (principal) | CPT/HCPCS: 55876; 76872 ==

== ENCOUNTER 2023-07-26 16:14 | Outpatient (AMB) | payer OTHER, SELFPAY ==
[2023-07-26 16:15] VITALS: BP 124/80; PULSE 79; O2SAT 98; BMI 25.7
--- NOTE | 2023-07-26 16:15 | MHC.PC.OV ---
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: No Accompanied by: Self / Same As Patient Allergies No Known Allergies Allergy (Mild, Verified 07/26/23 16:32) NKA Medication List - Last Reconciled 07/26/23 by Nikos Villasenor MD aspirin 81 mg PO DAILY 90 days atorvastatin 80 mg PO BEDTIME 90 days bicalutamide 50 mg PO DAILY bicalutamide 50 mg PO DAILY clotrimazole-betamethasone 1-0.05 % 1 appl topical BID 4 weeks famotidine (Acid Risk Developer (famotidine)) 10 mg PO DAILY levofloxacin 500 mg PO daily 3 days metoprolol tartrate 12.5 mg (1/2 x 25 mg) PO BID 90 days ticagrelor (Brilinta) 90 mg PO BID 30 days trazodone 50 mg PO BEDTIME PRN 30 days Tobacco use date assessed: 07/26/23 Fall risk assessment: No Falls in past year Last assessed Fall Risk: 07/26/23 Dental Screening Dental Screen Date: 07/26/23 Did you have a dental visit in the last 12 months?: Yes Did you have a dental problem in the last 6 months where you did not have access to dental care?: No Was dental information given to patient?: Patient has dentist HPI Coronary artery disease HPI Details Patient comes in today for his follow up visit States that he still feels fatigued often - states that this has been going on for a while now Was diagnosed with prostate cancer earlier this year but his treatment was delayed by his ID and cardiac stenting back in February 2023 States that he just had marker seed placement about a week ago and he will be going to [facility] next week on 08/03/23 for mapping so he can started with his prostate cancer treatment finally Will be receiving external beam radiation to prostate and pelvic lymph nodes once he starts Tx He denies any fever, headaches or dizziness Denies any exertional chest pains, no increased SOB No nausea/vomiting, no abdominal pain No change in bowel habits noted Had his follow up labs done a couple of weeks ago - to discuss his results PFSH Medical History (Updated 07/26/23 @ 18:32 by Nikos Villasenor MD) Coronary atherosclerosis GERD (gastroesophageal reflux disease) Hx of coronary angiogram Insomnia Prostate cancer Pure hypercholesterolemia Surgical History (Updated 07/26/23 @ 18:15 by Nikos Villasenor MD) History of inguinal hernia repair History of right inguinal hernia repair (~04/2009) History of tonsillectomy and adenoidectomy S/P drug eluting coronary stent placement (~03/25/23) Stented coronary artery Family History Father No problems noted. Mother No problems noted. Social History (Updated 07/26/23 @ 18:35 by Nikos Villasenor MD) Housing: Apartment Patient Tobacco Use Status: Former Tobacco user e-Cigarette/Vaping Use: Never Used service: No Current occupational status: employed Cognitive needs: No Hearing needs: No Vision needs: No Questionnaire PHQ-9 Over the last 2 weeks, how often have you been bothered by any of the following problems? 1. Little interest or pleasure in doing things: not at all 2. Feeling down, depressed, or hopeless: not at all 3. Trouble falling or staying asleep, or sleeping too much: not at all 4. Feeling tired or having little energy: not at all 5. Poor appetite or overeating: not at all 6. Feeling bad about yourself - or that you are a failure or have let yourself or your family down: not at all 7. Trouble concentrating on things, such as reading the newspaper or watching television: not at all 8. Moving or speaking so slowly that other people could have noticed. Or the opposite - being so fidgety or restless that you have been moving around a lot more than usual: not at all 9. Thoughts that you would be better off or of hurting yourself in some way: not at all Total score: 0 Depression Screening Interpretation: Negative [id number] - PHQ-9 Billing: Yes Source: Developed by Drs. Amadou Canas, Katharine Lamb, Walter Gupta and colleagues, with an educational aimee from [employer]. Thrive Questionnaire Date Thrive assessed: 07/26/23 I am a: Patient What is your living situation today?: I have a steady place to live Within the past 12 months, did the food you bought not last and you didn't have the money to get more?: Never true Within the past 12 months, did you worry whether your food would run out before you got money to buy more?: Never true Do you have trouble paying for medicines?: No Do you have trouble getting transportation to medical appointments?: No Do you have trouble paying your heating and electricity bill?: No Do you have trouble taking care of your child, family member or friend?: No Do you have trouble with day-to-day activities such as bathing, preparing meals, shopping, managing finances, etc.?: No Are you currently unemployed and looking for a job?: No Are you interested in more education?: No Please select the resources that you would like help with: None Currently or been in a relationship where the following occur: no concerns reported AUDIT C Alcohol Use Questionnaire (AUDIT-C) 1. How often do you have a drink containing alcohol?: 4 or more times a week 2. How many drinks containing alcohol do you have on a typical day when you are drinking?: 1 or 2 3. How often do you have six or more drinks on one occasion?: Never Total Score: 4 Score Reviewed/Action Taken: Yes RAUL-7 AMB Questionnaire RAUL-7 Date RAUL - 7 assessed: 07/26/23 Feeling nervous, anxious, or on edge: 0 = Not at all Not being able to stop or control worryin = Not at all Worrying too much about different things: 0 = Not at all Trouble relaxin = Not at all Being so restless that it is hard to sit still: 0 = Not at all Becoming easily annoyed or irritable: 0 = Not at all Feeling afraid as if something awful might happen: 0 = Not at all Total RAUL-7 score (0-4 normal; 5-9 mild; 10-14 moderate; 15-21 severe): 0 Source: Developed by Drs. Amadou Canas, Katharine Lamb, Walter Gupta and colleagues, with an educational aimee from [employer]. Review of Systems Const Denies chills, Reports fatigue (increased lately), Denies fever(s) and Denies headache(s) ENT Denies dysphagia, Denies dizziness, Denies otalgia, Denies headache(s), Denies neck pain, Denies odynophagia and Denies sore throat Card Denies chest pain, Denies palpitations and Denies dyspnea Resp Denies cough and Denies dyspnea GI Denies abdominal pain, Denies constipation, Denies dysphagia, Denies heartburn, Denies diarrhea, Denies nausea, Denies odynophagia and Denies vomiting Denies dysuria, Denies nocturia and Denies urinary frequency Musc Denies neck pain Skin/Breast Denies rash Neuro Denies dizziness and Denies headache(s) Endo Reports fatigue (increased lately) and Denies palpitations Physical exam (Primary Care) Vital Signs: Last Vital Signs Pulse 79 07/26/23 16:15 BP 124/80 07/26/23 16:15 Pulse Ox 98 07/26/23 16:15 Oxygen Delivery Method Room Air 07/26/23 16:15 BMI result Body Mass Index 25.7 Tobacco/Smoking Status: Tobacco use Status Tobacco use date assessed 07/26/23 07/26/23 16:22 Patient Tobacco Use Status Never used Tobacco 07/26/23 16:22 e-Cigarette/Vaping Use Never Used 07/26/23 16:22 PHQ-9: PHQ-9 Score PHQ-9: Total score 0 07/26/23 16:22 Depression Screening Interpretation: Negative Thrive Assessment: Date of Thrive Assessment Date Thrive assessed 07/26/23 07/26/23 16:22 Currently or been in a relationship where the following occur: no concerns reported Const General: no acute distress, alert and tired appearing HENMT Ears: TM's normal bilaterally and EAC's normal Throat: Yes posterior oropharynx normal and Yes tonsils normal (no TP congestion) Neck Neck: Yes no lymphadenopathy and Yes supple Resp Auscultation: clear to auscultation bilaterally, no rales and no wheezes Cardio Rate: regular rate Rhythm: regular rhythm Heart sounds: no murmurs GI Palpation (GI): Soft to palpation and nontender Auscultation: normal bowel sounds Skin General skin exam: no rashes or lesions noted Extrem General: Yes no clubbing, cyanosis or edema Results Reviewed Results Reviewed: Laboratory Tests 07/16/23 07/16/23 07/16/23 08:29 08:29 08:29 WBC 10.6 Hgb 14.6 Hct 44.0 Plt Count 312 Sodium 141 Potassium 4.2 Creatinine 0.83 Estimated GFR > 60 Fasting Glucose 102 H Calcium 9.6 AST 34 ALT 43 H Triglycerides 102 Cholesterol 120 LDL Cholesterol, Calc 62 HDL Cholesterol 38 Prostate Specific Ag 0.12 25-OH Vitamin D Total 40.6 Total Testosterone Ur Specific [place] Urine Protein Urine Glucose (UA) Urine Blood 07/16/23 07/16/23 08:29 09:24 WBC Hgb Hct Plt Count Sodium Potassium Creatinine Estimated GFR Fasting Glucose Calcium AST ALT Triglycerides Cholesterol LDL Cholesterol, Calc HDL Cholesterol Prostate Specific Ag 25-OH Vitamin D Total Total Testosterone 26 L Ur Specific [place] 1.020 Urine Protein Negative Urine Glucose (UA) Negative Urine Blood Trace H Assessment and Plan Assessment & Plan (1) Coronary atherosclerosis: Comment: NSTEMI on 03/24/2023; cardiac cath done on 03/25/23 revealed 100% stenosis of proximal OM1 - S/P KERRY Code(s): I25.10 - Atherosclerotic heart disease of [place] coronary artery without angina pectoris Qualifiers: Coronary Disease-Associated Artery/Lesion type: [place] artery [place] vs. transplanted heart: [place] heart Associated angina: without angina Qualified Code(s): I25.10 - Atherosclerotic heart disease of [place] coronary artery without angina pectoris Plan: S/P NSTEMI in 02/2023; S/P KERRY to proximal OM1 Continue Brilinta 90 mg BID, Aspirin 81 mg QD and Metoprolol 12.5 mg BID Follow up with cardiology as scheduled (2) Pure hypercholesterolemia: Code(s): E78.00 - Pure hypercholesterolemia, unspecified Plan: Results of his labs done a couple of weeks ago reviewed and discussed with patient - lipids have improved significantly from previous Reinforced low cholesterol diet Continue Atorvastatin 80 mg QD Will recheck his labs and fasting lipids on 4 months for follow up (3) Prostatic adenocarcinoma: Code(s): C61 - Malignant neoplasm of prostate Plan: Just had marker seed placement done and will be going for mapping next week, after which he will start Tx with external beam radiation to prostate and to the pelvic lymph nodes Continue Bicalutamide 50 mg QD Follow up with urology as scheduled (4) GERD (gastroesophageal reflux disease): Code(s): K21.9 - Gastro-esophageal reflux disease without esophagitis Qualifiers: Esophagitis presence: without esophagitis Qualified Code(s): K21.9 - Gastro-esophageal reflux disease without esophagitis Plan: Dietary restrictions reinforced Continue Famotidine 10 mg QD PRN (5) History of herpes genitalis: Code(s): Z86.19 - Personal history of other infectious and parasitic diseases Plan: Will refill his Rx for Valtrex 1 gm BID x 10 days - to take this ONLY if he has acute flare ups of his genital herpes (6) Insomnia: Code(s): G47.00 - Insomnia, unspecified Qualifiers: Insomnia type: unspecified Qualified Code(s): G47.00 - Insomnia, unspecified Plan: Sleep hygiene reinforced Continue Trazodone 50 mg Q HS PRN Plan Follow up in 4 months Orders: Orders Lipid Panel 4 Months E78.00 - Pure hypercholesterolemia, unspecified Comprehensive [place]. Panel Fast 4 Months E78.00 - Pure hypercholesterolemia, unspecified Complete Blood Count Auto Diff 4 Months C61 - Malignant neoplasm of prostate UA CC w/rflx Micro + Cult 4 Months C61 - Malignant neoplasm of prostate, R30.0 - Dysuria Medications: New valacyclovir 1,000 mg PO BID 20 tabs 0RF 10 days B02.9 - Zoster without complications Coding Level of Care Code Est Pt Level 4 (67472) Diagnoses Coronary atherosclerosis I25.10 Coronary Disease-Associated Artery/Lesion type: [place] artery [place] vs. transplanted heart: [place] heart Associated angina: without angina Pure hypercholesterolemia E78.00 Prostatic adenocarcinoma C61 GERD (gastroesophageal reflux disease) K21.9 Esophagitis presence: without esophagitis History of herpes genitalis Z86.19 Insomnia G47.00 Insomnia type: unspecified
== END 2023-07-26 16:50 | disposition home or self-care (01) ==
PROVIDERS: PCP Internal Medicine; Visit Provider Internal Medicine
DX: K21.9 Gastro-esophageal reflux disease without esophagitis (principal); Z86.19 Personal history of other infectious and parasitic diseases; C61 Malignant neoplasm of prostate; I25.10 Atherosclerotic heart disease of native coronary artery without angina pectoris; E78.00 Pure hypercholesterolemia, unspecified; G47.00 Insomnia, unspecified
CPT/HCPCS: 99214

== ENCOUNTER 2023-08-22 14:36 | Outpatient (AMB) | payer OTHER, SELFPAY ==
[2023-08-22 14:43] VITALS: BP 92/68; PULSE 80; BMI 26.3
--- NOTE | 2023-08-22 14:43 | A.OFFVIS_ITS ---
Intake Vital Signs 08/22/23 14:43 Height 5 ft 6 in Weight 162 lb 11.218 oz BMI 26.3 BP 92/68 Blood Pressure Location Lt brachial Position Sitting Pulse 80 Pulse Source Pulse Oximeter Intake Visit Reasons: 2 mth fu Intake Note: 2 month f/u Configuration Analyst Required: No Allergies No Known Allergies Allergy (Mild, Verified 08/22/23 14:51) NKA Medication List - Last Reconciled 08/22/23 by Jeannette Dias NP-C aspirin 81 mg PO DAILY 90 days atorvastatin 80 mg PO BEDTIME 90 days bicalutamide 50 mg PO DAILY bicalutamide 50 mg PO DAILY 90 days clotrimazole-betamethasone 1-0.05 % 1 appl topical BID 4 weeks famotidine (Acid Ad Operations Coordinator (famotidine)) 10 mg PO DAILY metoprolol tartrate 12.5 mg (1/2 x 25 mg) PO BID 90 days ticagrelor (Brilinta) 90 mg PO BID 30 days trazodone 50 mg PO BEDTIME PRN 30 days HPI 2 mth fu HPI Details Narayan is a 73-year-old male with past medical history of hyperlipidemia, prostate cancer, NSTEMI 02/2023 with KERRY placed to an occluded OM 1, who presents for follow-up. Today he reports he has been doing well since his last visit in May. He denies any recurrent chest discomfort at rest or with activity. No shortness of breath, palpitations, dizziness, presyncope, syncope, PND, orthopnea or edema. Overall he feels well. 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 He is taking meds as directed. He is requesting changed to Plavix due to the high cost of Brilinta. No bleeding issues reported. [facility] Medical History Pure hypercholesterolemia Hx of coronary angiogram Insomnia Coronary atherosclerosis Prostate cancer GERD (gastroesophageal reflux disease) Surgical History S/P drug eluting coronary stent placement (~03/25/23) Stented coronary artery History of right inguinal hernia repair (~04/2009) History of inguinal hernia repair History of tonsillectomy and adenoidectomy Family History Father No problems noted. Mother No problems noted. Social History Housing: Apartment Patient Tobacco Use Status: Former Tobacco user e-Cigarette/Vaping Use: Never Used service: No Current occupational status: employed Cognitive needs: No Hearing needs: No Vision needs: No Review of Systems Const All systems reviewed & are unremarkable except as noted in HPI and below ENT Denies dizziness Card Denies chest pain, Denies chest pain at rest, Denies chest pain with activity, Denies rapid heart rate, Denies pedal edema, Denies edema, Denies leg edema, Denies lightheadedness, Denies palpitations, Denies dyspnea, Denies dyspnea on exertion and Denies orthopnea Resp Denies cough, Denies dyspnea and Denies dyspnea on exertion GI Denies hematochezia and Denies change in stool character Musc Denies abnormal gait, Denies limited range of motion, Denies muscle cramps, Denies muscle weakness, Denies numbness, Denies radiating pain into limb, Denies stiffness and Denies tingling Neuro Denies abnormal gait, Denies dizziness, Denies numbness and Denies tingling Endo Denies palpitations Physical Exam Vital Signs: Last Vital Signs Pulse 80 08/22/23 14:43 BP 92/68 08/22/23 14:43 BMI result Body Mass Index 26.3 Const General: cooperative, healthy appearing, comfortable and no acute distress Orientation/consciousness: patient oriented x3 Neck Neck: Yes normal visual inspection Resp Effort & Inspection: normal respiratory effort Auscultation: clear to auscultation bilaterally, no crackles, no rales, no rhonchi and no wheezes Cardio Jugular venous distension: no JVD Rate: regular rate Rhythm: regular rhythm Heart sounds: S1 normal heart sound present, S2 normal heart sound present, no murmurs and no rubs Neuro General: patient oriented x3 Extrem General: Yes normal to inspection Psych Appearance: grossly normal Mental Status: mental status grossly normal Speech and movement: Normal speech and movement present Assessment & Plan Assessment & Plan (1) Coronary atherosclerosis: Comment: NSTEMI on 03/24/2023; cardiac cath done on 03/25/23 revealed 100% stenosis of proximal OM1 - S/P KERRY Code(s): I25.10 - Atherosclerotic heart disease of [place] coronary artery without angina pectoris Qualifiers: Associated angina: without angina Coronary Disease-Associated Artery/Lesion type: [place] artery [place] vs. transplanted heart: [place] heart Qualified Code(s): I25.10 - Atherosclerotic heart disease of [place] coronary artery without angina pectoris Plan: NSTEMI February 2023. He underwent cardiac catheterization showing occluded OM1, PCI performed with balloon angioplasty and stent. Residual nonobstructive disease in the proximal RCA, mid LAD and mid D2. Echocardiogram done post event showed EF 40-50%, severe hypokinesis of the basal to mid inferior lateral and anterior lateral wall. He was put on aspirin indefinitely. Plavix uninterrupted for at least 1 year. He now reports Brilinta is high cost for him and requesting switched to Plavix. Will order Plavix 300 mg load followed by 75 mg daily once he uses of his current stock of Brilinta. Explained this to him in detail. Continue low-dose metoprolol and high-dose atorvastatin. Blood pressure on the low side this min visit, asymptomatic and not orthostatic. He tells me he had diarrhea on 3 occasions today and did not drink much fluid. Instructed to increase his fluid and drink a Gatorade. today. Discussed signs and symptoms of angina. Cardiology office visit in 3-4 months, sooner if needed. (2) Stented coronary artery: Comment: Cardiac catheterization 03/25/2023, occluded OM1, KERRY placed, proximal RCA 40% stenosis, mid LAD 40% stenosis, mid D2 50% stenosis Code(s): Z95.5 - Presence of coronary angioplasty implant and graft Plan: 03/25/2023 KERRY to OM1 (3) Pure hypercholesterolemia: Code(s): E78.00 - Pure hypercholesterolemia, unspecified Plan: [place] LDL goal less than 70 in patient with CAD. Labs done on 07/16/2023 shows LDL 62. Continue high-dose atorvastatin (4) Prostatic adenocarcinoma: Code(s): C61 - Malignant neoplasm of prostate Plan: Following with Oncology. Currently undergoing radiation to the prostate Medications: New clopidogrel (Plavix) On FIRST day only - Take 4 tablets ( 300mg) - then 1 tablet (75mg) once daily 75 mg PO DAILY 90 days 90 tabs 2RF Discontinued ticagrelor (Brilinta) Discontinued Reason: Doctor's Order 90 mg PO BID 30 days 60 tabs 5RF Coding Level of Care Code Est Pt Level 4 (49004) Diagnoses Atherosclerosis of [place] coronary artery of [place] heart without angina pectoris I25.10 Associated angina: without angina Coronary Disease-Associated Artery/Lesion type: [place] artery [place] vs. transplanted heart: [place] heart Stented coronary artery Z95.5 Pure hypercholesterolemia E78.00 Prostatic adenocarcinoma C61 Time Spent (min) 26
== END 2023-08-22 15:24 | disposition home or self-care (01) ==
PROVIDERS: PCP Internal Medicine; Visit Provider Nurse Practitioner Family
DX: I25.10 Atherosclerotic heart disease of native coronary artery without angina pectoris (principal); Z95.5 Presence of coronary angioplasty implant and graft; E78.00 Pure hypercholesterolemia, unspecified; C61 Malignant neoplasm of prostate
CPT/HCPCS: 99214

== ENCOUNTER → 2023-08-22 14:36 | Outpatient (BNVA) | payer OTHER, SELFPAY | PROVIDERS: PCP Internal Medicine; Visit Provider Nurse Practitioner Family ==

== ENCOUNTER 2023-09-27 14:28 | Outpatient (AMB) | payer OTHER, SELFPAY ==
--- NOTE | 2023-09-27 14:49 | MHC.OFFVIS ---
Intake Intake Visit Reasons: GnRH/PSA(PA Set) Intake Note: Patient is Present for Follow Up PSA/Eligard Injection Urology Medication: Eligard(Q6M), Bicalutamide, Antibiotic Allergies: none Blood Thinners: Plavix, Aspirin Pharmacy: [facility] Allergies No Known Allergies Allergy (Mild, Verified 08/22/23 14:51) NKA Medication List - Last Reconciled 09/27/23 by Ac Velasquez MD aspirin 81 mg PO DAILY 90 days atorvastatin 80 mg PO BEDTIME 90 days bicalutamide 50 mg PO DAILY bicalutamide 50 mg PO DAILY 90 days clopidogrel (Plavix) 75 mg PO DAILY 90 days clotrimazole-betamethasone 1-0.05 % 1 appl topical BID 4 weeks famotidine (Acid Compliance Technician (famotidine)) 10 mg PO DAILY finasteride 5 mg PO DAILY 90 days leuprolide acetate (6 month) (Eligard) 45 mg subcut [id number] metoprolol tartrate 12.5 mg (1/2 x 25 mg) PO BID 90 days trazodone 50 mg PO BEDTIME PRN 30 days HPI HPI Comments History of Present Illness Details Narayan is a patient male. He is a patient of Dr. Villasenor. 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 Disease stable 2 more weeks left with radiation Has some dizziness terazosin, switch to tamsulosin Lab work in 3 weeks Finasteride Stop bicalutamide at end of radiation Prostate Cancer - 02/17 - high volume, high risk - 1st GnRH 03/20 - EXBRT with radiation PSA at diagniosis 15 Histologic type: Prostatic acinar adenocarcinoma: [place] score: 3+4+7 (F); 4+3+7 (A, C, D, E,J and L); 4+4=8 (H, I, K); 4+5=9 (B) Total Cores 12 Positive Cores 12 % volume 910/1200 Periprostatic fat inv.: Not identified Seminal vesicle inv.: Not identified Perineural inv.: Present LVI: Not identified Clinical T2c - JAYANT bilateral prostate firmness Initial Staging - 02/17 bone scan degenerative changes consistent with arthritis. No evidence of metastatic prostate cancer - 03/20 CT scan pelvis no evidence of lymphadenopathy, no evidence of metastatic disease PFSH Medical History Pure hypercholesterolemia Hx of coronary angiogram Insomnia Coronary atherosclerosis Prostate cancer GERD (gastroesophageal reflux disease) Surgical History S/P drug eluting coronary stent placement (~03/25/23) Stented coronary artery History of right inguinal hernia repair (~04/2009) History of inguinal hernia repair History of tonsillectomy and adenoidectomy Family History Father No problems noted. Mother No problems noted. Social History Housing: Apartment Patient Tobacco Use Status: Former Tobacco user e-Cigarette/Vaping Use: Never Used service: No Current occupational status: employed Cognitive needs: No Hearing needs: No Vision needs: No Office Meds Eligard (6 month) 45 mg (6 month) subcutaneous syringe Performing Provider: Ac Velasquez MD [facility] Administered by: Anahi Marte RN on 09/27/23 15:12 Dose Route Admin Location Dispensed Lot Number Expiration Date [facility] Supervisor [place] 45 mg subcut right arm 45 mg [id number] 11/28/24 05335-544-24 [employer]. Assessment & Plan Assessment & Plan (1) Prostate cancer: Comment: 02/17 high-grade, high-volume Code(s): C61 - Malignant neoplasm of prostate Plan Three month follow-up labs tele Orders: Orders AMB Leuprolide Injection - Practice Supplied Today C61 - Malignant neoplasm of prostate Testosterone, Total 3 Months C61 - Malignant neoplasm of prostate Prostate Specific Antigen 3 Months C61 - Malignant neoplasm of prostate Medications: New finasteride 5 mg PO DAILY 90 days 90 tabs 1RF C61 - Malignant neoplasm of prostate, N13.8 - Other obstructive and reflux uropathy, N40.1 - Benign prostatic hyperplasia with lower urinary tract symptoms, R33.9 - Retention of urine, unspecified tamsulosin 0.4 mg PO BEDTIME 30 caps 1RF 30 days C61 - Malignant neoplasm of prostate, N40.1 - Benign prostatic hyperplasia with lower urinary tract symptoms, R35.1 - Nocturia Patient Instructions: Imaging studies, laboratory and physical exam results were discussed and reviewed in detail. No major barriers to patient understanding were identified. An opportunity to ask questions regarding the treatment plan was provided. All questions were answered. The patient expressed understanding and agreement with the above treatment plan. The patient is aware they should contact our office by phone for worsening of their current condition or the appearance of new urologic symptoms. Compliance is encouraged with any medications and followup testing that is ordered. It is a privilege to participate in the urologic care of your patient. If you have any questions or concerns regarding treatment for the above conditions, or other urologic issues, please do not hesitate to contact me. The office telephone contact is [phone]. This note is constructed using voice recognition software. While every effort has been made to ensure accuracy harvest contractor errors may have been included. Yours sincerely, Dr Ac Velasquez MD, [facility] - Urology Providers of Expert, Compassionate Care for the Genitourinary System Coding Level of Care Code Est Pt Level 3 (95135) Diagnoses Prostate cancer C61
== END 2023-09-27 15:53 | disposition home or self-care (01) ==
PROVIDERS: PCP Internal Medicine; Visit Provider Urology
DX: C61 Malignant neoplasm of prostate (principal)
CPT/HCPCS: 99213

== ENCOUNTER → 2023-09-27 14:28 | Outpatient (BNVA) | payer OTHER, SELFPAY | PROVIDERS: PCP Internal Medicine; Visit Provider Urology | DX: C61 Malignant neoplasm of prostate (principal) | CPT/HCPCS: 96402; J9217 ==

== ENCOUNTER 2023-10-12 10:34 | Outpatient (AMB) | payer OTHER, SELFPAY ==
--- NOTE | 2023-10-12 11:04 | MHC.OFFWIV ---
Intake Vital Signs 10/12/23 11:05 Height 5 ft 6 in Weight 161 lb BMI 26.0 BP 108/64 Blood Pressure Location Rt brachial Position Sitting Pulse 54 Pulse Source Pulse Oximeter Temp 97.9 F Temp Source Temporal Artery Scan Pulse Oximetry (%) 97 Oxygen Delivery Method Room Air Intake Visit Reasons: EP, Low back pain Intake Note: pt is here for c.o low back pain due to lifting garage door at work Patient Tobacco Use Status: Former Tobacco user Allergies No Known Allergies Allergy (Mild, Verified 10/12/23 11:06) NKA Do you need a note to return to daycare/school/sports/work: Yes HPI EP, Low back pain HPI Details Patient presents to the office for a sick visit. Complaining of lower back pain for the past week. No history of fall or trauma prior to the onset of symptoms. No urinary incontinence. No fevers or chills. Pain is worse on bending forwards or sideways. Relieve done sitting down. Pain is radiating into the gluteal area. [facility] Medical History Pure hypercholesterolemia Hx of coronary angiogram Insomnia Coronary atherosclerosis Prostate cancer GERD (gastroesophageal reflux disease) Surgical History S/P drug eluting coronary stent placement (~03/25/23) Stented coronary artery History of right inguinal hernia repair (~04/2009) History of inguinal hernia repair History of tonsillectomy and adenoidectomy Family History Father No problems noted. Mother No problems noted. Social History Housing: Apartment Patient Tobacco Use Status: Former Tobacco user e-Cigarette/Vaping Use: Never Used service: No Current occupational status: employed Cognitive needs: No Hearing needs: No Vision needs: No Physical Exam Vital Signs: Last Vital Signs Temp 97.9 F 10/12/23 11:05 Pulse 54 10/12/23 11:05 BP 108/64 10/12/23 11:05 Pulse Ox 97 10/12/23 11:05 Oxygen Delivery Method Room Air 10/12/23 11:05 BMI result Body Mass Index 26.0 Back/Spine/Pelvis Other: No spinal tenderness. No paraspinal spasm. Assessment & Plan Assessment & Plan (1) Low back pain: Code(s): M54.50 - Low back pain, unspecified Plan: Meloxicam and cyclobenzaprine called in. Patient was advised rest. Note for work if necessary provided. Once pain symptoms subside, patient should start physical therapy. If symptoms worsen to follow-up here. Patient already has a meloxicam prescription at home. Medications: New cyclobenzaprine 10 mg PO BEDTIME 14 tabs 0RF cyclobenzaprine 10 mg PO BEDTIME 14 tabs 0RF Coding Level of Care Code Est Pt Level 3 (21640) Diagnoses Low back pain M54.50
[2023-10-12 11:05] VITALS: BP 108/64; PULSE 54; TEMP 36.6; O2SAT 97; BMI 26.0
== END 2023-10-12 11:53 | disposition home or self-care (01) ==
PROVIDERS: PCP Internal Medicine; Visit Provider Internal Medicine
DX: M54.50 Low back pain, unspecified (principal)
CPT/HCPCS: 99213

== ENCOUNTER 2023-10-19 15:51 | Outpatient (AMB) | payer OTHER, SELFPAY ==
--- NOTE | 2023-10-19 15:55 | A.OFFVIS_ITS ---
Intake Intake Visit Reasons: 3 month (marker placement) Allergies No Known Allergies Allergy (Mild, Verified 10/12/23 11:06) NKA Medication List - Last Reconciled 10/19/23 by Ac Velasquez MD aspirin 81 mg PO DAILY 90 days atorvastatin 80 mg PO BEDTIME 90 days bicalutamide 50 mg PO DAILY bicalutamide 50 mg PO DAILY 90 days clopidogrel (Plavix) 75 mg PO DAILY 90 days clotrimazole-betamethasone 1-0.05 % 1 appl topical BID 4 weeks cyclobenzaprine 10 mg PO BEDTIME cyclobenzaprine 10 mg PO BEDTIME finasteride 5 mg PO DAILY 90 days leuprolide acetate (6 month) (Eligard) 45 mg subcut [id number] metoprolol tartrate 12.5 mg (1/2 x 25 mg) PO BID 90 days tamsulosin 0.4 mg PO BEDTIME 30 days tizanidine 4 mg PO Q8H PRN trazodone 50 mg PO BEDTIME PRN 30 days HPI HPI Comments History of Present Illness Details Narayan is a patient male. He is a patient of Dr. Villasenor. He is seen for following urologic conditions - prostate cancer - radiation oncology [facility] Telemedicine Evaluation 15 min Consultation [employer] [place] [employer] attempted Had heart attack in January 2023 after GnRH injection Delayed marker seed placement Will proceed with seed placement Has recovered from single-vessel disease with stent placement 07/20 P 0.12, T 26 GnRH 09/19 Burning at end of urination. Maybe some healing. Prostate Cancer - 02/17 - high volume, high risk - 1st GnRH 03/20 - EXBRT with radiation MAB during therap y completed 10/20 (bicalutamide, finasteride, GnRH) Dr Jade Pompa PSA at diagniosis 15 Initial therapy external beam radiation with bicalutamide, GnRH, finasteride. Dr. Jade Pompa Histologic type: Prostatic acinar adenocarcinoma: [place] score: 3+4+7 (F); 4+3+7 (A, C, D, E,J and L); 4+4=8 (H, I, K); 4+5=9 (B) Total Cores 12 Positive Cores 12 % volume 910/1200 Periprostatic fat inv.: Not identified Seminal vesicle inv.: Not identified Perineural inv.: Present LVI: Not identified Clinical T2c - JAYANT bilateral prostate firmness Initial Staging - 02/17 bone scan degenerative changes co nsistent with arthritis. No evidence of metastatic prostate cancer - 03/20 CT scan pelvis no evidence of lym phadenopathy, no evidence of metastatic disease PFSH Medical History Pure hypercholesterolemia Hx of coronary angiogram Insomnia Coronary atherosclerosis Prostate cancer GERD (gastroesophageal reflux disease) Surgical History S/P drug eluting coronary stent placement (~03/25/23) Stented coronary artery History of right inguinal hernia repair (~04/2009) History of inguinal hernia repair History of tonsillectomy and adenoidectomy Family History Father No problems noted. Mother No problems noted. Housing: Apartment Patient Tobacco Use Status: Former Tobacco user e-Cigarette/Vaping Use: Never Used service: No Current occupational status: employed Cognitive needs: No Hearing needs: No Vision needs: No Review of Systems Const All systems reviewed & are unremarkable except as noted in HPI and below Reports no additional complaints Resp Reports no additional complaints GI Reports no additional complaints Reports as per HPI Musc Reports no additional complaints Physical Exam Telemedicine evaluation Appropriate responses Regular breathing rate and rhythm HEENT Head: Yes normal to inspection Ears: hearing grossly normal bilaterally Eyes General: appearance normal, both eyes and all related structures Neck Neck: Yes normal visual inspection Chest Chest palpation & inspection: normal inspection of the chest Resp Effort & Inspection: normal respiratory effort and able to speak in complete sentences Assessment & Plan Assessment & Plan (1) Prostatic adenocarcinoma: Comment: High-grade, initial therapy external beam radiation with GnRH Code(s): C61 - Malignant neoplasm of prostate Plan Three month follow-up labs Orders: Orders Testosterone, Total 3 Months C61 - Malignant neoplasm of prostate Prostate Specific Antigen 3 Months C61 - Malignant neoplasm of prostate Patient Instructions: Imaging studies, laboratory and physical exam results were discussed and reviewed in detail. No major barriers to patient understanding were identified. An opportunity to ask questions regarding the treatment plan was provided. All questions were answered. The patient expressed understanding and agreement with the above treatment plan. The patient is aware they should contact our office by phone for worsening of their current condition or the appearance of new urologic symptoms. Compliance is encouraged with any medications and followup testing that is ordered. It is a privilege to participate in the urologic care of your patient. If you have any questions or concerns regarding treatment for the above conditions, or other urologic issues, please do not hesitate to contact me. The office telephone contact is [phone]. This note is constructed using voice recognition software. While every effort has been made to ensure accuracy trade specialist errors may have been included. Yours sincerely, Dr Ac Velasquez MD, [facility] - Urology Providers of Expert, Compassionate Care for the Genitourinary System Telehealth Telehealth Location of provider rendering services: practice address Location of patient: address on file Patient Identification confirmed using: Name, : Yes Telehealth method: video Patient verbally consented to treatment: Yes Patient verbally consented to billing insurance company: Yes Patient informed of any privacy concerns related to visit: Yes Coding Level of Care Code Tele Est Pt Level 3 (00647) Diagnoses Prostatic adenocarcinoma C61
== END 2023-10-19 16:05 | disposition home or self-care (01) ==
LOC: HO.HUSH 15:51
PROVIDERS: PCP Internal Medicine; Visit Provider Urology
DX: C61 Malignant neoplasm of prostate (principal)
CPT/HCPCS: 99213

== ENCOUNTER → 2023-10-19 15:51 | Outpatient (BNVA) | payer OTHER, SELFPAY | PROVIDERS: PCP Internal Medicine; Visit Provider Urology ==

== ENCOUNTER 2023-10-22 11:09 | Outpatient (AMB) | payer OTHER, SELFPAY ==
--- NOTE | 2023-10-22 12:20 | AM.OFFWIN_ITS ---
Intake Vital Signs 10/22/23 12:26 Height 5 ft 6 in Weight 73.028 kg BMI 26.0 BP 110/70 Blood Pressure Location Lt brachial Position Sitting Pulse 78 Pulse Source Pulse Oximeter Pulse Oximetry (%) 98 Oxygen Delivery Method Room Air Intake Visit Reasons: EP UTI Intake Note: Patient here for UTi, he states he has burning everywhere. states he has had these symptoms for a few weeks but has worsened the last couple of days. Pt states he started Radiation in August and ended October 10 for phase 2 prostate cancer and gets hormone shots and goes back in 3 months. Patient Tobacco Use Status: Former Tobacco user Allergies No Known Allergies Allergy (Mild, Verified 10/22/23 12:29) NKA Do you need a note to return to daycare/school/sports/work: No HPI HPI Comments History of Present Illness Details 73-year-old male presents for evaluation for 39 days of dysuria, urgency, and discomfort to the perineal area. Patient receives radiation for prostate cancer, and feel that most of his symptoms are related to the treatments received. He does not report any fevers or chills. [facility] Medical History Pure hypercholesterolemia Hx of coronary angiogram Insomnia Coronary atherosclerosis Prostate cancer GERD (gastroesophageal reflux disease) Surgical History S/P drug eluting coronary stent placement (~03/25/23) Stented coronary artery History of right inguinal hernia repair (~04/2009) History of inguinal hernia repair History of tonsillectomy and adenoidectomy Family History Father No problems noted. Mother No problems noted. Housing: Apartment Patient Tobacco Use Status: Former Tobacco user e-Cigarette/Vaping Use: Never Used service: No Current occupational status: employed Cognitive needs: No Hearing needs: No Vision needs: No Review of Systems Const Details: Constitutional: No Fever, No Chills ENT/Mouth: No Ear Pain, No Hoarseness, No sore throat Eyes: No Eye Pain, No Swelling, No Redness, No Foreign Body Cardiovascular: No Chest Pain, No SOB Respiratory: No Cough, No Dyspnea Gastrointestinal: No Nausea, No Vomiting, No Diarrhea, No abdominal Pain Genitourinary: Positive for urgency and Dysuria, No Hematuria, positive irritation to the penis anus and buttocks Musculoskeletal: No joint pain, No Myalgias, No Joint Swelling Skin: No Skin lacerations, No rash Neuro: No Weakness, No Numbness, No Paresthesias, No Dizziness, No Headache All systems reviewed & are unremarkable except as noted in HPI and below Physical Exam Vital Signs: Last Vital Signs Pulse 78 10/22/23 12:26 BP 110/70 10/22/23 12:26 Pulse Ox 98 10/22/23 12:26 Oxygen Delivery Method Room Air 10/22/23 12:26 BMI result Body Mass Index 26.0 Appearance: Alert. Oriented X3. No acute distress. Eyes: Pupils equal, round and reactive to light. ENT: Pharynx normal. Neck: Normal inspection. Neck supple. CVS: Normal heart rate and rhythm. Pulses normal. Respiratory: No respiratory distress. Breath sounds normal. Abdomen: Soft and nontender. Skin: Skin warm and dry. Normal skin color. Normal skin turgor. Genitourinary: Skin excoriated the glans, shaft, perineum, around the anus and between the buttocks. Extremities: No lower extremity edema. Neuro: No motor deficit. No sensory deficit. Results AMB Urinalysis, Automated UA Leukoctes 0 Ela/uL Last Edit by RADHA Treviño on 10/22/23 12:26 UA Nitrite Negative Last Edit by RADHA Treviño on 10/22/23 12:26 UA Urobilinogen 0.2 mg/dL Last Edit by RADHA Treviño on 10/22/23 12:26 UA Protein 100 mg/dL Last Edit by RADHA Treviño on 10/22/23 12:26 UA pH 5.5 Last Edit by RADHA Treviño on 10/22/23 12:26 UA Blood 200 Prince/uL Last Edit by RADHA Treviño on 10/22/23 12:26 UA Specific [place] 1.030 Last Edit by RADHA Treviño on 10/22/23 12:26 UA Ketone Positive Last Edit by RADHA Treviño on 10/22/23 12:26 UA Bilirubin 1 mg/dL Last Edit by Stewart Cox CCM on 10/22/23 12:26 UA Glucose 0 mg/dL Last Edit by RADHA Treviño on 10/22/23 12:26 Results Reviewed Results Reviewed: Laboratory Last Values Urine pH (Auto) 5.5 10/22/23 12:24 Specific [place] (Auto) 1.030 10/22/23 12:24 Urine Protein (Auto) 100 mg/dL 10/22/23 12:24 Glucose (UA)(Auto) 0 mg/dL 10/22/23 12:24 Urine Ketones (Auto) Positive 10/22/23 12:24 Urine Blood (Auto) 200 Prince/uL 10/22/23 12:24 Urine Nitrite (Auto) Negative 10/22/23 12:24 Urine Bilirubin (Auto) 1 mg/dL 10/22/23 12:24 Urine Urobilinogen (Auto) 0.2 mg/dL 10/22/23 12:24 Leukocyte Esterase (Auto) 0 Ela/uL 10/22/23 12:24 Assessment & Plan Assessment & Plan (1) Dysuria: Code(s): R30.0 - Dysuria Plan 73-year-old male presents with dysuria, penile irritation, and anal itching mostly related to the radiation treatment that he has been receiving for prostate cancer. Penis, shaft of penis, and perineum excoriated, consistent with patient's history of radiation. 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 While urinalysis indicates team, and elevated proteins, I do feel that it would be appropriate to treat this patient for UTI symptoms and prostatitis. I will treat with topical nystatin cream rather than p.o. medications as patient drinks alcohol daily, supportive measure with Pyridium. Patient will call Dr. Velasquez on [place] for evaluation. Patient verbalized understanding of and agreed to plan of care discharge home. Verbalized understanding of signs symptoms and pain need for emergent intervention. Orders: Orders UA CC w/rflx Micro + Cult Today R30.0 - Dysuria AMB Urinalysis Automated Today Z13.9 - Encounter for screening, unspecified Medications: New cefuroxime axetil 500 mg PO Q12H 7 days 14 tabs 0RF phenazopyridine (Pyridium) 100 mg PO TID PRN 6 tabs 0RF pain nystatin 1 appl topical TID 30 grams 2RF Patient Instructions: You were evaluated for urinary symptoms. This is most likely prostatitis. You do have some skin excoriation consistent with candidiasis. For suspected prostatitis, take cefuroxime 500 mg every 12 hours for the next 7 days. For candidiasis use nystatin cream 3 times a day for the next week, then twice a day for the next 2 weeks. Take Pyridium every 8 hours as needed for bladder spasms. Take all other medications that were prescribed to you by prior providers as directed. Follow-up with Dr. Velasquez on Tuesday. Thank you for choosing this urgent care for evaluation. Please follow-up with primary care physician as needed. Return to the emergency department for any new, concerning, or worsening symptoms. Coding Level of Care Code Est Pt Level 3 (79798) Diagnoses Dysuria R30.0
[2023-10-22 12:26] VITALS: BP 110/70; PULSE 78; O2SAT 98; BMI 26.0
== END 2023-10-22 13:35 | disposition home or self-care (01) ==
PROVIDERS: PCP Internal Medicine; Visit Provider Nurse Practitioner Family
DX: R30.0 Dysuria (principal)
CPT/HCPCS: 81003; 99051; 99213

== ENCOUNTER 2023-10-22 15:21 | Outpatient (REF) | payer OTHER, SELFPAY | END 2023-10-22 15:22 | disposition home or self-care (01) | LOC: HO.HHCLNP 15:21 | PROVIDERS: Visit Provider Nurse Practitioner Family | DX: R30.0 Dysuria (principal) | CPT/HCPCS: 87086; 87088; 87186 ==

== ENCOUNTER 2023-11-07 16:03 | Outpatient (AMB) | payer OTHER, SELFPAY ==
[2023-11-07 16:05] VITALS: BP 100/60; PULSE 80; O2SAT 99; BMI 26.1
--- NOTE | 2023-11-07 16:05 | A.OFFPC_ITS ---
Vital Signs 11/07/23 16:05 Height 5 ft 6 in Weight 162 lb BMI 26.1 BP 100/60 Blood Pressure Location Lt brachial Position Sitting Pulse 80 Pulse Source Pulse Oximeter Pulse Oximetry (%) 99 Oxygen Delivery Method Room Air Intake Visit Reasons: hyperlipidemia, CAD, prostate CA, GERD Training Representative Required: No Log Data Technician: Not Required per policy Accompanied by: Self / Same As Patient Allergies No Known Allergies Allergy (Mild, Verified 01/20/24 15:39) NKA Medication List - Last Reconciled 11/07/23 by Nikos Villasenor MD aspirin 81 mg PO DAILY 90 days atorvastatin 80 mg PO BEDTIME 90 days clopidogrel (Plavix) 75 mg PO DAILY 90 days clotrimazole-betamethasone 1-0.05 % 1 appl topical BID 4 weeks cyclobenzaprine 10 mg PO BEDTIME cyclobenzaprine 10 mg PO BEDTIME finasteride 5 mg PO DAILY 90 days leuprolide acetate (6 month) (Eligard) 45 mg subcut [id number] levofloxacin 250 mg PO DAILY 7 days metoprolol tartrate 12.5 mg (1/2 x 25 mg) PO BID 90 days nystatin 1 appl topical TID phenazopyridine (Pyridium) 100 mg PO TID PRN 6 doses tamsulosin 0.4 mg PO BEDTIME 30 days terazosin 5 mg PO BEDTIME tizanidine 4 mg PO Q8H PRN tranexamic acid 650 mg PO BID 5 days trazodone 50 mg PO BEDTIME PRN 30 days Tobacco use date assessed: 07/26/23 Fall risk assessment: No Falls in past year Last assessed Fall Risk: 11/07/23 Dental Screening Dental Screen Date: 11/07/23 Did you have a dental visit in the last 12 months?: Yes Did you have a dental problem in the last 6 months where you did not have access to dental care?: No Was dental information given to patient?: Patient has dentist HPI hyperlipidemia, CAD, prostate CA, GERD HPI Details Patient comes in today for his follow up visit He just completed about 6 weeks of radiation Tx for his prostate cancer at [facility] a couple of weeks ago States that he also recently broke out with an itchy rash over his buttocks and inguinal areas but the rash is starting to clear up now Reports that he's had some irritation when urinating and has also noticed some blood at times in his urine lately Was treated empirically with 7 days on oral Levofloxacin and states that his sym ptoms are now starting to improve He denies any fever or chills; denies any headaches or dizziness Denies any chest pains, no SOB No nausea/vomiting, no abdominal pain No change in bowel habits noted He was not able to get his follow up labs done prior to his appointment today [facility] Medical History Overweight (BMI 25.0-29.9) Pure hypercholesterolemia Hx of coronary angiogram Insomnia Coronary atherosclerosis Prostate cancer GERD (gastroesophageal reflux disease) Surgical History S/P drug eluting coronary stent placement (~03/25/23) Stented coronary artery History of right inguinal hernia repair (~04/2009) History of inguinal hernia repair History of tonsillectomy and adenoidectomy Family History Father No problems noted. Mother No problems noted. Social History Housing: Apartment Patient Tobacco Use Status: Former Tobacco user e-Cigarette/Vaping Use: Never Used service: No Current occupational status: employed Cognitive needs: No Hearing needs: No Vision needs: No Questionnaire PHQ-9 Over the last 2 weeks, how often have you been bothered by any of the following problems? Depression Screening Interpretation: Negative Depression Screening Done: Yes Source: Developed by Drs. Amadou Canas, Walter Patricia and colleagues, with an educational aimee from [employer]. Thrive Questionnaire Date Thrive assessed: 07/26/23 Currently or been in a relationship where the following occur: no concerns reported RAUL-7 AMB Questionnaire RAUL-7 Date RAUL - 7 assessed: 07/26/23 Source: Developed by Drs. Amadou Canas, Walter Patricia and colleagues, with an educational aimee from [employer]. Review of Systems Const Denies chills, Reports fatigue, Denies fever(s) and Denies headache(s) ENT Denies dysphagia, Denies dizziness, Denies otalgia, Denies headache(s), Denies neck pain, Denies odynophagia and Denies sore throat Card Denies chest pain, Denies palpitations and Denies dyspnea Resp Denies cough and Denies dyspnea GI Denies abdominal pain, Denies constipation, Denies dysphagia, Denies heartburn, Denies diarrhea, Denies nausea, Denies odynophagia and Denies vomiting Reports hematuria (occasionally recently - clearing up lately), Denies dysuria (but (+) irritation/dysuria on urination - improving with Abx Tx), Denies nocturia and Denies urinary frequency Musc Denies back pain and Denies neck pain Skin/Breast Reports rash (itchy - over the buttocks and inguinal areas but improving lately) Neuro Denies dizziness and Denies headache(s) Endo Reports fatigue and Denies palpitations Physical exam (Primary Care) Vital Signs: Last Vital Signs Pulse 80 11/07/23 16:05 BP 100/60 11/07/23 16:05 Pulse Ox 99 11/07/23 16:05 Oxygen Delivery Method Room Air 11/07/23 16:05 BMI result Body Mass Index 26.1 Tobacco/Smoking Status: Tobacco use Status Tobacco use date assessed 07/26/23 11/07/23 16:06 Patient Tobacco Use Status Former Tobacco user 11/07/23 16:06 e-Cigarette/Vaping Use Never Used 11/07/23 16:06 Depression Screening Interpretation: Negative Thrive Assessment: Date of Thrive Assessment Date Thrive assessed 07/26/23 11/07/23 16:06 Currently or been in a relationship where the following occur: no concerns reported Const General: no acute distress, alert and tired appearing HENMT Ears: TM's normal bilaterally and EAC's normal Throat: Yes posterior oropharynx normal and Yes tonsils normal (no TP congestion) Neck Neck: Yes no lymphadenopathy and Yes supple Resp Auscultation: clear to auscultation bilaterally, no rales and no wheezes Cardio Rate: regular rate Rhythm: regular rhythm Heart sounds: no murmurs GI Palpation (GI): Soft to palpation and nontender Auscultation: normal bowel sounds General: Yes no CVA tenderness Back/Spine/Pelvis Back: no CVA tenderness Thoracic/Lumbar Spine: No lumbar spinal tenderness Skin Rashes: rashes noted ((+) residual scaling rash over the buttocks and inguinal areas bilaterally) Extrem General: Yes no clubbing, cyanosis or edema Assessment and Plan Assessment & Plan (1) Coronary atherosclerosis: Comment: NSTEMI on 03/24/2023; cardiac cath done on 03/25/23 revealed 100% stenosis of proximal OM1 - S/P KERRY Code(s): I25.10 - Atherosclerotic heart disease of [place] coronary artery without angina pectoris Qualifiers: Coronary Disease-Associated Artery/Lesion type: [place] artery [place] vs. transplanted heart: [place] heart Associated angina: without angina Qualified Code(s): I25.10 - Atherosclerotic heart disease of [place] coronary artery without angina pectoris Plan: S/P NSTEMI in 02/2023; S/P KERRY to proximal OM1 Continue Brilinta 90 mg BID, Aspirin 81 mg QD and Metoprolol 12.5 mg BID Follow up with cardiology as scheduled (2) Pure hypercholesterolemia: Code(s): E78.00 - Pure hypercholesterolemia, unspecified Plan: Patient was not able to get his follow up labs done prior to his appt today - is advised to try to get them done SAM Reinforced low cholesterol diet Continue Atorvastatin 80 mg QD (3) Prostatic adenocarcinoma: Comment: high-grade, initial therapy external beam radiation with GnRH Code(s): C61 - Malignant neoplasm of prostate Plan: He recently completed 6 weeks of Tx with external beam radiation to prostate and to the pelvic lymph nodes and seems to be doing okay Continue Bicalutamide 50 mg QD Follow up with urology as scheduled (4) GERD (gastroesophageal reflux disease): Code(s): K21.9 - Gastro-esophageal reflux disease without esophagitis Qualifiers: Esophagitis presence: without esophagitis Qualified Code(s): K21.9 - Gastro-esophageal reflux disease without esophagitis Plan: Dietary restrictions reinforced Continue Famotidine 10 mg QD PRN (5) History of herpes genitalis: Code(s): Z86.19 - Personal history of other infectious and parasitic diseases Plan: Continue Valtrex 1 gm BID x 10 days ONLY when he has acute flare ups of his genital herpes (6) Insomnia: Code(s): G47.00 - Insomnia, unspecified Qualifiers: Insomnia type: unspecified Qualified Code(s): G47.00 - Insomnia, unspecified Plan: Sleep hygiene reinforced Continue Trazodone 50 mg Q HS PRN (7) Overweight (BMI 25.0-29.9): Code(s): E66.3 - Overweight Plan: Reinforced diet/exercise as tolerated/lose weight Plan Follow up in 2 months Coding Level of Care Code Est Pt Level 4 (64506) Diagnoses Atherosclerosis of [place] coronary artery of [place] heart without angina pectoris I25.10 Coronary Disease-Associated Artery/Lesion type: [place] artery [place] vs. transplanted heart: [place] heart Associated angina: without angina Pure hypercholesterolemia E78.00 Prostatic adenocarcinoma C61 Gastroesophageal reflux disease without esophagitis K21.9 Esophagitis presence: without esophagitis History of herpes genitalis Z86.19 Insomnia, unspecified type G47.00 Insomnia type: unspecified Overweight (BMI 25.0-29.9) E66.3
== END 2023-11-07 17:02 | disposition home or self-care (01) ==
PROVIDERS: PCP Internal Medicine; Visit Provider Internal Medicine
DX: I25.10 Atherosclerotic heart disease of native coronary artery without angina pectoris (principal); E78.00 Pure hypercholesterolemia, unspecified; C61 Malignant neoplasm of prostate; K21.9 Gastro-esophageal reflux disease without esophagitis; Z86.19 Personal history of other infectious and parasitic diseases; G47.00 Insomnia, unspecified; E66.3 Overweight
CPT/HCPCS: 99214

== ENCOUNTER 2023-11-10 15:15 | Outpatient (REF) | payer OTHER, SELFPAY ==
[2023-11-10 15:40] LABS: MANUAL DIFF FLAG NO
[2023-11-10 17:50] LABS: Appearance Urine Clear; Color Urine Yellow; Glucose Urine UA Negative (Negative); Leukocyte Esterase Urine Trace (Negative); Nitrite Urine Negative (Negative); PH 5.5 (5.0-9.0); Specific Gravity - Urine 1.015 (1.005-1.025); UMIC TRIGGER UACC YES; Urine Blood Large (3+) (Negative); Urine Ketones Negative (Negative); Urine Protein 30 (1+) mg/dL (Neg-Trace)
[2023-11-10 18:07] LABS: Bacteria Urine None Seen (None Seen); Hyaline Casts Urine 0-2 /LPF (0-2); RBC Urine >20 /HPF (0-2); Squamous Epithelial Cell Urine 0-2 /HPF (0-2); UACC Culture Trigger YES
[2023-11-10 18:12] LABS: Basophils Absolute Auto 0.1 X10*3/uL (0.0-0.2); Basophils Percent Auto 0.5 % (0-2); Eosinophils Absolute Auto 0.2 X10*3/uL (0.0-0.4); Eosinophils Percent Auto 1.6 % (0-4); Hematocrit 39.7 % (42.0-52.0); Hemoglobin 13.4 g/dl (14.0-18.0); Imm Gran Abs Auto 0.06 X10*3/uL (0.00-0.03); Imm Gran Pct Auto 0.5 % (0.0-0.4); Lymphocytes Absolute Auto 1.3 X10*3/uL (1.2-4.9); Lymphocytes Percent Auto 11.9 % (20-40); Mean Corpuscular HGB Conc 33.8 g/dl (31.0-36.0); Mean Corpuscular Hemoglobin 32.4 pg (27.0-33.0); Mean Corpuscular Volume 95.9 fL (80.0-98.0); Mean Platelet Volume 11.7 fL (9.4-12.4); Monocytes Absolute Auto 0.9 X10*3/uL (0.1-1.2); Monocytes Percent Auto 8.3 % (2-11); Neutrophils Absolute Auto 8.5 x10*3/uL (2.0-8.3); Neutrophils Percent Auto 77.2 % (45-73); Platelet Count 210 X10*3/uL (160-400); Red Blood Count 4.14 X10*6/uL (4.60-5.80); Red Cell Distribution Width 13.3 % (11.0-16.0)
== END 2023-11-10 15:16 | disposition home or self-care (01) ==
LOC: HO.LAB 15:15
PROVIDERS: PCP Internal Medicine; Visit Provider Internal Medicine
DX: Z12.5 Encounter for screening for malignant neoplasm of prostate (principal); C61 Malignant neoplasm of prostate; R82.90 Unspecified abnormal findings in urine
CPT/HCPCS: 36415; 81001; 85025; 87086

== ENCOUNTER 2023-11-12 08:02 | Outpatient (REF) | payer OTHER, SELFPAY ==
[2023-11-12 10:40] LABS: Alanine Aminotransferase 26 U/L (0-40); Alkaline Phosphatase 62 U/L (39-117); Anion Gap 12 (12-20); Aspartate Amino Transferase 26 U/L (5-37); Bilirubin Total 0.6 mg/dL (0.0-1.0); Blood Urea Nitrogen 19 mg/dL (9-16); Calcium 9.1 mg/dL (8.4-10.2); Carbon Dioxide 24 mmol/L (22-29); Chloride 111 mmol/L (96-108); Cholesterol 143 mg/dL (<200); Estimated Glomerular Filt Rate > 60; Glucose Fasting 107 mg/dL (60-99); HDL Cholesterol 55 mg/dL (>40); LDL Cholesterol Calculated 77 mg/dL (<100); Potassium 3.8 mmol/L (3.3-5.1); Sodium 143 mmol/L (135-145); Total Protein 6.3 g/dL (6.5-8.0); Triglycerides 59 mg/dL (<150)
[2023-11-12 11:49] LABS: Appearance Urine Cloudy; Color Urine Yellow; Glucose Urine UA Negative (Negative); Leukocyte Esterase Urine Trace (Negative); Nitrite Urine Negative (Negative); PH 5.5 (5.0-9.0); UMIC TRIGGER UACC YES; Urine Blood Large (3+) (Negative); Urine Ketones Negative (Negative); Urine Protein 100 (2+) mg/dL (Neg-Trace)
[2023-11-12 11:56] LABS: Bacteria Urine None Seen (None Seen); Hyaline Casts Urine 0-2 /LPF (0-2); RBC Urine >20 /HPF (0-2); Squamous Epithelial Cell Urine 0-2 /HPF (0-2); UACC Culture Trigger YES
== END 2023-11-12 08:03 | disposition home or self-care (01) ==
LOC: HO.LAB 08:02
PROVIDERS: PCP Internal Medicine; Visit Provider Internal Medicine
DX: E78.00 Pure hypercholesterolemia, unspecified (principal)
CPT/HCPCS: 36415; 80053; 80061; 81001

== ENCOUNTER 2023-11-23 15:00 | Outpatient (AMB) | payer OTHER, SELFPAY ==
--- NOTE | 2023-11-23 15:03 | MHC.OFFVIS ---
Intake Vital Signs 11/23/23 15:04 Height 5 ft 6 in Weight 160 lb 4.417 oz BMI 25.9 BP 104/62 Blood Pressure Location Lt brachial Position Sitting Pulse 73 Intake Visit Reasons: 3 + f/up Intake Note: 3 month follow up Production Supv Required: No Accompanied by: Self / Same As Patient Allergies No Known Allergies Allergy (Mild, Verified 11/23/23 15:07) NKA Medication List - Last Reconciled 11/23/23 by Patel Ledesma MD aspirin 81 mg PO DAILY 90 days atorvastatin 80 mg PO BEDTIME 90 days clopidogrel (Plavix) 75 mg PO DAILY 90 days clotrimazole-betamethasone 1-0.05 % 1 appl topical BID 4 weeks cyclobenzaprine 10 mg PO BEDTIME finasteride 5 mg PO DAILY 90 days leuprolide acetate (6 month) (Eligard) 45 mg subcut [id number] metoprolol tartrate 12.5 mg (1/2 x 25 mg) PO BID 90 days nystatin 1 appl topical TID phenazopyridine (Pyridium) 100 mg PO TID PRN terazosin 5 mg PO BEDTIME 90 days tizanidine 4 mg PO Q8H PRN tranexamic acid 650 mg PO BID HPI HPI Comments History of Present Illness Details Narayan returns for follow-up. Few months back, he was seen in consultation regarding coronary disease. [facility] documentation was reviewed. It seems that he initially went to [facility] in February with an NSTEMI. Then transferred to [facility]. Underwent cardiac catheterization and stenting of the OM1. From a cardiac standpoint, he does not have any anginal-type symptoms or in fact anything else of major concern. Otherwise, he also has prostate cancer and being treated for the same at Urology. 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 [facility] Medical History Pure hypercholesterolemia Hx of coronary angiogram Insomnia Coronary atherosclerosis Prostate cancer GERD (gastroesophageal reflux disease) Surgical History S/P drug eluting coronary stent placement (~03/25/23) Stented coronary artery History of right inguinal hernia repair (~04/2009) History of inguinal hernia repair History of tonsillectomy and adenoidectomy Family History Father No problems noted. Mother No problems noted. Social History Housing: Apartment Patient Tobacco Use Status: Former Tobacco user e-Cigarette/Vaping Use: Never Used service: No Current occupational status: employed Cognitive needs: No Hearing needs: No Vision needs: No Review of Systems Const Denies weakness ENT Denies dizziness Card Denies chest pain, Denies chest pain with activity, Denies syncope, Denies rapid heart rate, Denies pedal edema, Denies edema, Denies leg edema, Denies lightheadedness, Denies palpitations, Denies dyspnea, Denies dyspnea on exertion and Denies orthopnea Resp Denies cough, Denies dyspnea and Denies dyspnea on exertion GI Denies hematochezia and Denies change in stool character Musc Denies abnormal gait, Denies muscle cramps, Denies muscle weakness, Denies numbness, Denies radiating pain into limb and Denies tingling Neuro Denies abnormal gait, Denies dizziness, Denies syncope, Denies numbness, Denies tingling and Denies weakness Endo Denies palpitations Physical Exam Vital Signs: Last Vital Signs Pulse 73 11/23/23 15:04 BP 104/62 11/23/23 15:04 BMI result Body Mass Index 25.9 Const General: comfortable and no acute distress Orientation/consciousness: patient oriented x3 HEENT Other: Unremarkable Head: Yes normal to inspection Neck Neck: Yes normal visual inspection Chest Chest palpation & inspection: normal inspection of the chest Resp Auscultation: clear to auscultation bilaterally Cardio Palpation: normal PMI Heart sounds: S1 normal heart sound present, S2 normal heart sound present, no gallops, no murmurs and no rubs GI Palpation (GI): Soft to palpation Back/Spine/Pelvis Other: unremarkable Skin General skin exam: no rashes or lesions noted Neuro General: patient oriented x3 Extrem General: Yes normal to inspection Psych Mental Status: mental status grossly normal Assessment & Plan Assessment & Plan (1) Coronary atherosclerosis: Comment: NSTEMI on 03/24/2023; cardiac cath done on 03/25/23 revealed 100% stenosis of proximal OM1 - S/P KERRY Code(s): I25.10 - Atherosclerotic heart disease of [place] coronary artery without angina pectoris Qualifiers: Associated angina: without angina Coronary Disease-Associated Artery/Lesion type: [place] artery [place] vs. transplanted heart: [place] heart Qualified Code(s): I25.10 - Atherosclerotic heart disease of [place] coronary artery without angina pectoris (2) Stented coronary artery: Comment: Cardiac catheterization 03/25/2023, occluded OM1, KERRY placed, proximal RCA 40% stenosis, mid LAD 40% stenosis, mid D2 50% stenosis Code(s): Z95.5 - Presence of coronary angioplasty implant and graft (3) Prostate cancer: Comment: 02/17 high-grade, high-volume Code(s): C61 - Malignant neoplasm of prostate Plan [facility] documentation was reviewed. Culprit lesion was thrombotic occlusion of proximal OM 1, status post PCI. Otherwise, proximal RCA with 40% stenosis. Mid LAD 40% stenosis. Mid D2 50% stenosis. Echocardiogram with LVEF of 40-50%. Severe hypokinesis in the basal to mid inferolateral/anterolateral sa[place]. Mild aortic valve thickening but no significant stenosis or regurgitation. Severe posterior mitral annular calcification. We will treat for stable coronary disease. Continue aspirin indefinitely. He was initially on Brilinta but now on Plavix. We continue this for 1 year from time of stenting and then stop it. Continue beta-blockers and statins. Cholesterol level seems well controlled. Follow-up in 6 months time. At that time, recheck echocardiogram to assess for any residual wall motion abnormality/cardiomyopathy. Orders: Orders CA echo transthoracic complete 6 Months I25.10 - Atherosclerotic heart disease of [place] coronary artery without angina pectoris Medications: Changed From cyclobenzaprine 10 mg PO BEDTIME 14 tabs 0RF To cyclobenzaprine 10 mg PO BEDTIME From tranexamic acid 650 mg PO BID 5 days 10 tabs 0RF To tranexamic acid 650 mg PO BID From phenazopyridine (Pyridium) 100 mg PO TID PRN 6 tabs 0RF pain To phenazopyridine (Pyridium) 100 mg PO TID PRN Coding Level of Care Code Est Pt Level 4 (14680) Diagnoses Atherosclerosis of [place] coronary artery of [place] heart without angina pectoris I25.10 Associated angina: without angina Coronary Disease-Associated Artery/Lesion type: [place] artery [place] vs. transplanted heart: [place] heart Stented coronary artery Z95.5 Prostate cancer C61
[2023-11-23 15:04] VITALS: BP 104/62; PULSE 73; BMI 25.9
== END 2023-11-23 15:30 | disposition home or self-care (01) ==
PROVIDERS: PCP Internal Medicine; Visit Provider Internal Medicine
DX: I25.10 Atherosclerotic heart disease of native coronary artery without angina pectoris (principal); Z95.5 Presence of coronary angioplasty implant and graft; C61 Malignant neoplasm of prostate
CPT/HCPCS: 99214

== ENCOUNTER → 2023-11-23 15:00 | Outpatient (BNVA) | payer OTHER, SELFPAY | PROVIDERS: PCP Internal Medicine; Visit Provider Internal Medicine ==

== ENCOUNTER 2023-12-21 16:14 | Outpatient (REF) | payer OTHER, MEDICARE, SELFPAY ==
[2023-12-21 19:09] LABS: Prostate Specific Antigen < 0.10 ng/mL (<0.05-4.0)
[2023-12-28 14:03] LABS: Testosterone, Total 3 ng/dL (250-1100)
== END 2023-12-21 16:15 | disposition home or self-care (01) ==
LOC: HO.LAB 16:14
PROVIDERS: PCP Internal Medicine; Visit Provider Urology
DX: Z12.5 Encounter for screening for malignant neoplasm of prostate (principal); C61 Malignant neoplasm of prostate
CPT/HCPCS: 36415; 84153; 84403

== ENCOUNTER 2024-01-10 13:29 | Outpatient (REF) | payer OTHER, MEDICARE, SELFPAY ==
[2024-01-10 15:01] LABS: Prostate Specific Antigen < 0.10 ng/mL (<0.05-4.0)
[2024-01-13 16:28] LABS: Testosterone, Total 4 ng/dL (250-1100)
== END 2024-01-10 13:30 | disposition home or self-care (01) ==
LOC: HO.LAB 13:29
PROVIDERS: Urology; PCP Internal Medicine; Visit Provider Internal Medicine
DX: Z12.5 Encounter for screening for malignant neoplasm of prostate (principal); C61 Malignant neoplasm of prostate
CPT/HCPCS: 36415; 84153; 84403

== ENCOUNTER 2024-01-18 16:19 | Outpatient (AMB) | payer OTHER, SELFPAY ==
[2024-01-18 16:24] VITALS: BP 124/80; PULSE 91; O2SAT 98; BMI 27.2
--- NOTE | 2024-01-18 16:24 | A.OFFPC_ITS ---
Vital Signs 01/18/24 16:24 Height 5 ft 6 in Weight 168 lb 6 oz BMI 27.2 BP 124/80 Blood Pressure Location Lt brachial Position Sitting Pulse 91 Pulse Source Pulse Oximeter Pulse Oximetry (%) 98 Oxygen Delivery Method Room Air Intake Visit Reasons: NSTEMI/CAD, prostate CA Commercial Collector Required: No Accompanied by: Self / Same As Patient Allergies No Known Allergies Allergy (Mild, Verified 01/18/24 16:48) NKA Medication List - Last Reconciled 01/18/24 by Nikos Villasenor MD aspirin 81 mg PO DAILY 90 days atorvastatin 80 mg PO BEDTIME 90 days clopidogrel (Plavix) 75 mg PO DAILY 90 days clotrimazole-betamethasone 1-0.05 % 1 appl topical BID 4 weeks cyclobenzaprine 10 mg PO BEDTIME finasteride 5 mg PO DAILY 90 days leuprolide acetate (6 month) (Eligard) 45 mg subcut [id number] metoprolol tartrate 12.5 mg (1/2 x 25 mg) PO BID 90 days nystatin 1 appl topical TID phenazopyridine (Pyridium) 100 mg PO TID PRN terazosin 5 mg PO BEDTIME 90 days tizanidine 4 mg PO Q8H PRN tranexamic acid 650 mg PO BID Tobacco use date assessed: 01/18/24 Fall risk assessment: No Falls in past year Last assessed Fall Risk: 01/18/24 Dental Screening Dental Screen Date: 01/18/24 Did you have a dental visit in the last 12 months?: No Did you have a dental problem in the last 6 months where you did not have access to dental care?: No Was dental information given to patient?: Patient has dentist HPI NSTEMI/CAD, prostate CA HPI Details Patient comes in today for his follow up visit States that he feels okay He denies any headaches or dizziness Denies any chest pains, no SOB No nausea/vomiting, no abdominal pain No change in bowel habits noted He did not have any follow up labs done recently but had some labs done a week after his last visit - would like to know how he did on those labs [facility] Medical History (Updated 01/19/24 @ 09:33 by Nikos Villasenor MD) Overweight (BMI 25.0-29.9) Pure hypercholesterolemia Hx of coronary angiogram Insomnia Coronary atherosclerosis Prostate cancer GERD (gastroesophageal reflux disease) Surgical History S/P drug eluting coronary stent placement (~03/25/23) Stented coronary artery History of right inguinal hernia repair (~04/2009) History of inguinal hernia repair History of tonsillectomy and adenoidectomy Family History Father No problems noted. Mother No problems noted. Social History Housing: Apartment Patient Tobacco Use Status: Former Tobacco user e-Cigarette/Vaping Use: Never Used service: No Current occupational status: employed Cognitive needs: No Hearing needs: No Vision needs: No Questionnaire PHQ-9 Over the last 2 weeks, how often have you been bothered by any of the following problems? 1. Little interest or pleasure in doing things: not at all 2. Feeling down, depressed, or hopeless: not at all 3. Trouble falling or staying asleep, or sleeping too much: not at all 4. Feeling tired or having little energy: not at all 5. Poor appetite or overeating: not at all 6. Feeling bad about yourself - or that you are a failure or have let yourself or your family down: not at all 7. Trouble concentrating on things, such as reading the newspaper or watching television: not at all 8. Moving or speaking so slowly that other people could have noticed. Or the opposite - being so fidgety or restless that you have been moving around a lot more than usual: not at all 9. Thoughts that you would be better off or of hurting yourself in some way: not at all Total score: 0 Depression Screening Interpretation: Negative Depression Screening Done: Yes 95511 - PHQ-9 Billing: Yes Source: Developed by Drs. Amadou Canas, Katharine Lamb, Walter Gupta and colleagues, with an educational aimee from [employer]. Thrive Questionnaire Date Thrive assessed: 01/18/24 I am a: Patient What is your living situation today?: I have a steady place to live Within the past 12 months, did the food you bought not last and you didn't have the money to get more?: Never true Within the past 12 months, did you worry whether your food would run out before you got money to buy more?: Never true Do you have trouble paying for medicines?: No Do you have trouble getting transportation to medical appointments?: No Do you have trouble paying your heating and electricity bill?: No Do you have trouble taking care of your child, family member or friend?: No Do you have trouble with day-to-day activities such as bathing, preparing meals, shopping, managing finances, etc.?: No Are you currently unemployed and looking for a job?: No Are you interested in more education?: No Please select the resources that you would like help with: None Currently or been in a relationship where the following occur: no concerns reported THRIVE Score: 0 AUDIT C Alcohol Use Questionnaire (AUDIT-C) 1. How often do you have a drink containing alcohol?: 4 or more times a week 2. How many drinks containing alcohol do you have on a typical day when you are drinking?: 1 or 2 3. How often do you have six or more drinks on one occasion?: Never Total Score: 4 Score Reviewed/Action Taken: Yes RAUL-7 AMB Questionnaire RAUL-7 Date RAUL - 7 assessed: 01/18/24 Feeling nervous, anxious, or on edge: 0 = Not at all Not being able to stop or control worryin = Not at all Worrying too much about different things: 0 = Not at all Trouble relaxin = Not at all Being so restless that it is hard to sit still: 0 = Not at all Becoming easily annoyed or irritable: 0 = Not at all Feeling afraid as if something awful might happen: 0 = Not at all Total RAUL-7 score (0-4 normal; 5-9 mild; 10-14 moderate; 15-21 severe): 0 Source: Developed by Drs. Amadou Canas, Katharine Lamb, Walter Gupta and colleagues, with an educational aimee from [employer]. Review of Systems Const Denies chills, Reports difficulty sleeping (chronic issue), Reports fatigue, Denies fever(s) and Denies headache(s) ENT Denies dysphagia, Denies dizziness, Denies otalgia, Denies headache(s), Denies neck pain, Denies odynophagia and Denies sore throat Card Denies chest pain, Denies palpitations and Denies dyspnea Resp Denies cough and Denies dyspnea GI Denies abdominal pain, Denies constipation, Denies dysphagia, Denies heartburn, Denies diarrhea, Denies nausea, Denies odynophagia and Denies vomiting Denies dysuria, Denies nocturia and Denies urinary frequency Musc Denies back pain and Denies neck pain Skin/Breast Denies rash Neuro Denies dizziness and Denies headache(s) Endo Reports fatigue and Denies palpitations Physical exam (Primary Care) Vital Signs: Last Vital Signs Pulse 91 01/18/24 16:24 BP 124/80 01/18/24 16:24 Pulse Ox 98 01/18/24 16:24 Oxygen Delivery Method Room Air 01/18/24 16:24 BMI result Body Mass Index 27.2 Tobacco/Smoking Status: Tobacco use Status Tobacco use date assessed 01/18/24 01/18/24 16:27 Patient Tobacco Use Status Former Tobacco user 01/18/24 16:27 e-Cigarette/Vaping Use Never Used 01/18/24 16:27 PHQ-9: PHQ-9 Score PHQ-9: Total score 0 01/19/24 09:22 Depression Screening Interpretation: Negative Thrive Assessment: Date of Thrive Assessment Date Thrive assessed 01/18/24 01/18/24 16:27 Currently or been in a relationship where the following occur: no concerns reported Const General: no acute distress and alert HENMT Ears: TM's normal bilaterally and EAC's normal Throat: Yes posterior oropharynx normal and Yes tonsils normal (no TP congestion) Neck Neck: Yes no lymphadenopathy and Yes supple Thyroid: Thyroid normal Resp Auscultation: clear to auscultation bilaterally, no rales and no wheezes Cardio Rate: regular rate Rhythm: regular rhythm Heart sounds: no murmurs GI Palpation (GI): Soft to palpation and nontender Auscultation: normal bowel sounds General: Yes no CVA tenderness Back/Spine/Pelvis Back: no CVA tenderness Skin Rashes: no rashes Extrem General: Yes no clubbing, cyanosis or edema Results Reviewed Results Reviewed: Laboratory Tests 11/10/23 11/12/23 11/12/23 15:38 08:47 08:50 WBC 11.0 H Hgb 13.4 L Hct 39.7 L Plt Count 210 D Sodium 143 Potassium 3.8 Creatinine 0.92 Estimated GFR > 60 Fasting Glucose 107 H Calcium 9.1 AST 26 ALT 26 Triglycerides Cholesterol LDL Cholesterol, Calc 77 HDL Cholesterol 55 Prostate Specific Ag Total Testosterone Urine pH 5.5 Ur Specific [place] 1.020 Urine Protein 100 (2+) H Urine Glucose (UA) Negative Urine Blood Large (3+) H 11/12/23 01/10/24 08:50 13:14 WBC Hgb Hct Plt Count Sodium Potassium Creatinine Estimated GFR Fasting Glucose Calcium AST ALT Triglycerides 59 Cholesterol 143 LDL Cholesterol, Calc HDL Cholesterol Prostate Specific Ag < 0.10 Total Testosterone 4 L Urine pH Ur Specific [place] Urine Protein Urine Glucose (UA) Urine Blood Assessment and Plan Assessment & Plan (1) Coronary atherosclerosis: Comment: NSTEMI on 03/24/2023; cardiac cath done on 03/25/23 revealed 100% stenosis of proximal OM1 - S/P KERRY Code(s): I25.10 - Atherosclerotic heart disease of [place] coronary artery without angina pectoris Qualifiers: Associated angina: without angina Coronary Disease-Associated Artery/Lesion type: [place] artery [place] vs. transplanted heart: [place] heart Qualified Code(s): I25.10 - Atherosclerotic heart disease of [place] coronary artery without angina pectoris Plan: S/P NSTEMI in 02/2023; S/P KERRY to proximal OM1 Continue Clopidogrel 75 mg QD, Aspirin 81 mg QD and Metoprolol 12.5 mg BID Follow up with cardiology as scheduled (2) Pure hypercholesterolemia: Code(s): E78.00 - Pure hypercholesterolemia, unspecified Plan: Results of his labs done a couple of months ago reviewed and discussed with oralia ent Reinforced low cholesterol diet Continue Atorvastatin 80 mg QD Will recheck his labs and fasting lipids on 4 months for follow up (3) Prostatic adenocarcinoma: Comment: high-grade, initial therapy external beam radiation with GnRH Code(s): C61 - Malignant neoplasm of prostate Plan: S/P initial Tx with external beam radiation to prostate and to the pelvic lymph nodes with Bicalutamide Continue Eligard 45 mg Q 6 months and Finasteride 5 mg QD Follow up with urology as scheduled (4) GERD (gastroesophageal reflux disease): Code(s): K21.9 - Gastro-esophageal reflux disease without esophagitis Qualifiers: Esophagitis presence: without esophagitis Qualified Code(s): K21.9 - Gastro-esophageal reflux disease without esophagitis Plan: Dietary restrictions reinforced Continue Famotidine 10 mg QD PRN (5) History of herpes genitalis: Code(s): Z86.19 - Personal history of other infectious and parasitic diseases Plan: Continue episodic Tx with Valtrex 1 gm BID x 10 days ONLY if (+) acute flare ups of genital herpes (6) Insomnia: Code(s): G47.00 - Insomnia, unspecified Qualifiers: Insomnia type: unspecified Qualified Code(s): G47.00 - Insomnia, unspecified Plan: Sleep hygiene reinforced Continue Trazodone 50 mg Q HS PRN (7) Hypotestosteronism: Code(s): E34.9 - Endocrine disorder, unspecified Plan: At his request, we looked up the result of his testosterone level (test was ordered by Dr. Velasquez) and have advised him that his testosterone level is very low but as he is on Tx with GnRH, this is not unusual He is advised that I will leave it up to Dr. Velasquez to discuss this further with him and talk about any potential Tx or Mx options (8) Overweight (BMI 25.0-29.9): Code(s): E66.3 - Overweight Plan: Reinforced diet/exercise as tolerated/lose weight - patient is cautioned that he has gained a lot of weight since his last visit last year (9) Colon cancer screening: Code(s): Z12.11 - Encounter for screening for malignant neoplasm of colon Plan: Patient is overdue for his repeat colonoscopy Cologuard testing was ordered a couple of times over the past year or two but patient did not complete his test both times Is advised that as he had NSTEMI less than a year ago, should still avoid any procedures, elective or otherwise, as much as possible and he should at least get his Cologuard testing done SAM Will reorder his Cologuard and have urged patient to get this done as soon as he gets the test kit and mail it back right away - cautioned that if he misses this test again, [facility] may no longer agree to keep sending him a test kit even if it is ordered again next time Plan Follow up in 4 months Orders: Orders Comprehensive [place]. Panel Fast 4 Months E78.00 - Pure hypercholesterolemia, unspecified TSH reflex Free T4 4 Months E78.00 - Pure hypercholesterolemia, unspecified UA CC w/rflx Micro + Cult 4 Months R30.0 - Dysuria Vitamin D 25-OH Total 4 Months E55.9 - Vitamin D deficiency, unspecified Complete Blood Count Auto Diff 4 Months D64.9 - Anemia, unspecified Lipid Panel 4 Months E78.00 - Pure hypercholesterolemia, unspecified Referrals Cologuard Test Z12.11 - Encounter for screening for malignant neoplasm of colon Coding Level of Care Code Est Pt Level 4 (60184) Diagnoses Atherosclerosis of [place] coronary artery of [place] heart without angina pectoris I25.10 Associated angina: without angina Coronary Disease-Associated Artery/Lesion type: [place] artery [place] vs. transplanted heart: [place] heart Pure hypercholesterolemia E78.00 Prostatic adenocarcinoma C61 Gastroesophageal reflux disease without esophagitis K21.9 Esophagitis presence: without esophagitis History of herpes genitalis Z86.19 Insomnia, unspecified type G47.00 Insomnia type: unspecified Hypotestosteronism E34.9 Overweight (BMI 25.0-29.9) E66.3 Colon cancer screening Z12.11
== END 2024-01-18 16:58 | disposition home or self-care (01) ==
PROVIDERS: PCP Internal Medicine; Visit Provider Internal Medicine
DX: I25.10 Atherosclerotic heart disease of native coronary artery without angina pectoris (principal); E78.00 Pure hypercholesterolemia, unspecified; C61 Malignant neoplasm of prostate; K21.9 Gastro-esophageal reflux disease without esophagitis; Z86.19 Personal history of other infectious and parasitic diseases; G47.00 Insomnia, unspecified; E34.9 Endocrine disorder, unspecified; E66.3 Overweight; Z12.11 Encounter for screening for malignant neoplasm of colon
CPT/HCPCS: 99214

== ENCOUNTER 2024-01-20 15:12 | Outpatient (AMB) | payer OTHER, SELFPAY ==
--- NOTE | 2024-01-20 15:32 | A.OFFVIS_ITS ---
Intake Intake Visit Reasons: 3M PSA/Testosterone(set) Intake Note: Patient presents today for a follow-up Meds- Eligard, Finasteride, Terazosin Allergies to Antibiotic- No Known Allergies Blood Thinner- Aspirin, Plavix Patient Symptoms: Patient stated he is no taking Terazosin too ofter. He also stated he is not takin Pyridium. 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 He is a patient of Dr. Villasenor. He is seen for following urologic conditions - prostate cancer - radiation oncology [facility] Prostate cancer follow-up Labs controlled Continue Q three-month follow-up It is feeling somewhat recovered Labs 07/20 P 0.12, T 26, 09/19 GnRH, 01/21 <0.1 4 GnRH 02/17, 09/19 Had heart attack in January 2023 after GnRH injection Delayed marker seed placement Will proceed with seed placement Has recovered from single-vessel disease with stent placement Burning at end of urination. Maybe some healing. Prostate Cancer - 02/17 - high volume, high risk - 1st GnRH 03/20 - EXBRT with radiation MAB during therap y completed 10/20 (bicalutamide, finasteride, GnRH) Dr Jade Pompa PSA at diagniosis 15 Initial therapy external beam radiation with bicalutamide, GnRH, finasteride. Dr. Jade Pompa Histologic type: Prostatic acinar adenocarcinoma: Giuliana score: 3+4+7 (F); 4+3+7 (A, C, D, E,J and L); 4+4=8 (H, I, K); 4+5=9 (B) Total Cores 12 Positive Cores 12 % volume 910/1200 Periprostatic fat inv.: Not identified Seminal vesicle inv.: Not identified Perineural inv.: Present LVI: Not identified Clinical T2c - JAYANT bilateral prostate firmness Initial Staging - 02/17 bone scan degenerative changes co nsistent with arthritis. No evidence of metastatic prostate cancer - 03/20 CT scan pelvis no evidence of lym phadenopathy, no evidence of metastatic disease PFS Medical History (Updated 01/19/24 @ 09:33 by Nikos Villasenor MD) Overweight (BMI 25.0-29.9) Pure hypercholesterolemia Hx of coronary angiogram Insomnia Coronary atherosclerosis Prostate cancer GERD (gastroesophageal reflux disease) Surgical History S/P drug eluting coronary stent placement (~03/25/23) Stented coronary artery History of right inguinal hernia repair (~04/2009) History of inguinal hernia repair History of tonsillectomy and adenoidectomy Family History Father No problems noted. Mother No problems noted. Social History Housing: Apartment Patient Tobacco Use Status: Former Tobacco user e-Cigarette/Vaping Use: Never Used service: No Current occupational status: employed Cognitive needs: No Hearing needs: No Vision needs: No Review of Systems Const Denies chills and Denies fever(s) Card Reports no additional complaints and Denies syncope Resp Denies cough GI Denies abdominal pain and Denies heartburn Reports as per HPI and Denies change in libido Neuro Denies syncope Psych Denies change in libido Endo Denies change in libido Physical Exam Const General: cooperative, healthy appearing, comfortable and no acute distress Orientation/consciousness: patient oriented x3 HEENT Face and sinus: Yes normal facial exam Mouth: moist mucous membranes Neck Neck: Yes normal visual inspection, Yes full ROM and Yes trachea midline Chest Chest palpation & inspection: normal inspection of the chest Resp Effort & Inspection: normal respiratory effort, able to speak in complete sentences and no respiratory distress GI Inspection: Yes normal to inspection Back/Spine/Pelvis Cervical Spine: normal cervical lordosis Thoracic/Lumbar Spine: thoracic and lumbar spine normal to inspection Skin General skin exam: no rashes or lesions noted Neuro General: patient oriented x3, gait normal, tone normal and moves all extremities Extrem General: Yes normal to inspection and Yes capillary refill normal Assessment & Plan Assessment & Plan (1) Prostatic adenocarcinoma: Comment: high-grade, initial therapy external beam radiation with GnRH Code(s): C61 - Malignant neoplasm of prostate Plan Three-month follow-up Orders: Orders Prostate Specific Antigen 3 Months C61 - Malignant neoplasm of prostate Testosterone, Total 3 Months C61 - Malignant neoplasm of prostate Patient Instructions: Imaging studies, laboratory and physical exam results were discussed and reviewed in detail. No major barriers to patient understanding were identified. An opportunity to ask questions regarding the treatment plan was provided. All questions were answered. The patient expressed understanding and agreement with the above treatment plan. The patient is aware they should contact our office by phone for worsening of their current condition or the appearance of new urologic symptoms. Compliance is encouraged with any medications and followup testing that is ordered. It is a privilege to participate in the urologic care of your patient. If you have any questions or concerns regarding treatment for the above conditions, or other urologic issues, please do not hesitate to contact me. The office telephone contact is [phone]. This note is constructed using voice recognition software. While every effort has been made to ensure accuracy chiropractic practice manager errors may have been included. Yours sincerely, Dr Ac Velasquez MD, [facility] - Urology Providers of Expert, Compassionate Care for the Genitourinary System Coding Level of Care Code Est Pt Level 3 (01348) Diagnoses Prostatic adenocarcinoma C61
== END 2024-01-20 15:54 | disposition home or self-care (01) ==
PROVIDERS: PCP Internal Medicine; Visit Provider Urology
DX: C61 Malignant neoplasm of prostate (principal)
CPT/HCPCS: 99213

== ENCOUNTER → 2024-01-20 15:12 | Outpatient (BNVA) | payer OTHER, SELFPAY | PROVIDERS: PCP Internal Medicine; Visit Provider Urology ==

== ENCOUNTER 2024-02-23 14:49 | Outpatient (AMB) | payer OTHER, SELFPAY ==
[2024-02-23 14:57] VITALS: BP 126/82; PULSE 81; TEMP 37.1; O2SAT 98; BMI 26.8
--- NOTE | 2024-02-23 14:57 | AM.OFFWIN_ITS ---
Intake Vital Signs 02/23/24 14:57 Height 5 ft 6 in Weight 166 lb 3 oz BMI 26.8 BP 126/82 Blood Pressure Location Lt brachial Position Sitting Pulse 81 Pulse Source Pulse Oximeter Temp 98.7 F Temp Source Oral Pulse Oximetry (%) 98 Oxygen Delivery Method Room Air Intake Visit Reasons: EP Cold Symptoms Intake Note: Pt is here today for a cough and runny nose, pt states it been on going for 2 wks or more. Patient Tobacco Use Status: Former Tobacco user Allergies No Known Allergies Allergy (Mild, Verified 02/23/24 15:00) NKA Do you need a note to return to daycare/school/sports/work: No HPI HPI Comments History of Present Illness Details 74 y/o male patient who presents to walk in clinic with c/o URI symptoms that started ~ 2 weeks ago. Symptoms on/off. [facility] Medical History Overweight (BMI 25.0-29.9) Pure hypercholesterolemia Hx of coronary angiogram Insomnia Coronary atherosclerosis Prostate cancer GERD (gastroesophageal reflux disease) Surgical History S/P drug eluting coronary stent placement (~03/25/23) Stented coronary artery History of right inguinal hernia repair (~04/2009) History of inguinal hernia repair History of tonsillectomy and adenoidectomy Family History Father No problems noted. Mother No problems noted. Social History Housing: Apartment Patient Tobacco Use Status: Former Tobacco user e-Cigarette/Vaping Use: Never Used service: No Current occupational status: employed Cognitive needs: No Hearing needs: No Vision needs: No Review of Systems Const All systems reviewed & are unremarkable except as noted in HPI and below Physical Exam Vital Signs: Last Vital Signs Temp 98.7 F 02/23/24 14:57 Pulse 81 02/23/24 14:57 BP 126/82 02/23/24 14:57 Pulse Ox 98 02/23/24 14:57 Oxygen Delivery Method Room Air 02/23/24 14:57 BMI result Body Mass Index 26.8 Const General: comfortable and no acute distress Orientation/consciousness: patient oriented x3 HEENT Head: Yes normocephalic Ears: external ears normal and TM abnormal with fluid behind the TM bilateral General nose exam: No nasal discharge present and Abnormal mucous membranes and turbinates present pale bilateral Face and sinus: Yes sinuses nontender Mouth: moist mucous membranes Throat: Yes posterior oropharynx normal Resp Effort & Inspection: normal respiratory effort and able to speak in complete sen tences Auscultation: clear to auscultation bilaterally, no crackles, no rales, no rhonchi and no wheezes Cardio Rate: regular rate Neuro General: patient oriented x3 Assessment & Plan Assessment & Plan (1) Upper respiratory infection: Code(s): J06.9 - Acute upper respiratory infection, unspecified Qualifiers: URI type: unspecified URI Qualified Code(s): J06.9 - Acute upper respiratory infection, unspecified Plan: - OTC medications for cold symptoms - Acetaminophen for pain relief - Rest and hydrate well - RTC if not better. Orders: Orders SARS-CoV2/FLU/RSV Today R09.89 - Other specified symptoms and signs involving the circulatory and respiratory systems Coding Level of Care Code Est Pt Level 3 (53174) Diagnoses Upper respiratory tract infection, unspecified type J06.9 URI type: unspecified URI Time Spent (min) 15
== END 2024-02-23 15:36 | disposition home or self-care (01) ==
PROVIDERS: PCP Internal Medicine; Visit Provider Nurse Practitioner Family
DX: J06.9 Acute upper respiratory infection, unspecified (principal)
CPT/HCPCS: 99213

== ENCOUNTER 2024-02-23 15:37 | Outpatient (REF) | payer OTHER, SELFPAY ==
[2024-02-24 11:36] LABS: Influenza A PCR NEGATIVE (Negative); Influenza B PCR NEGATIVE (Negative); Resp Syncy Virus RNA Qual PCR NEGATIVE (Negative); SARS COV2 PCR INHOUSE NEGATIVE (Negative)
== END 2024-02-23 15:38 | disposition home or self-care (01) ==
LOC: HO.LAB 15:37
PROVIDERS: Visit Provider Nurse Practitioner Family
DX: R09.89 Other specified symptoms and signs involving the circulatory and respiratory systems (principal)
CPT/HCPCS: 0241U

== ENCOUNTER 2024-03-31 07:04 | Outpatient (REF) | payer MEDICARE, SELFPAY ==
[2024-03-31 07:23] LABS: MANUAL DIFF FLAG NO
[2024-03-31 08:02] LABS: Appearance Urine Clear; Color Urine Yellow; Glucose Urine UA Negative (Negative); Leukocyte Esterase Urine Negative (Negative); Nitrite Urine Negative (Negative); UMIC TRIGGER UACC YES; Urine Blood Trace (Negative); Urine Ketones Negative (Negative); Urine Protein Negative (Neg-Trace)
[2024-03-31 08:03] LABS: Basophils Absolute Auto 0.1 X10*3/uL (0.0-0.2); Basophils Percent Auto 1.2 % (0-2); Eosinophils Absolute Auto 0.2 X10*3/uL (0.0-0.4); Eosinophils Percent Auto 4.1 % (0-4); Hemoglobin 14.7 g/dl (14.0-18.0); Imm Gran Abs Auto 0.04 X10*3/uL (0.00-0.03); Imm Gran Pct Auto 0.7 % (0.0-0.4); Lymphocytes Absolute Auto 1.1 X10*3/uL (1.2-4.9); Lymphocytes Percent Auto 18.8 % (20-40); Mean Corpuscular HGB Conc 33.4 g/dl (31.0-36.0); Mean Corpuscular Hemoglobin 31.8 pg (27.0-33.0); Mean Corpuscular Volume 95.2 fL (80.0-98.0); Mean Platelet Volume 11.5 fL (9.4-12.4); Monocytes Absolute Auto 0.6 X10*3/uL (0.1-1.2); Monocytes Percent Auto 10.8 % (2-11); Neutrophils Absolute Auto 3.8 x10*3/uL (2.0-8.3); Neutrophils Percent Auto 64.4 % (45-73); Platelet Count 246 X10*3/uL (160-400); Red Blood Count 4.62 X10*6/uL (4.60-5.80); Red Cell Distribution Width 12.9 % (11.0-16.0); White Blood Count 5.8 X10*3/uL (4.8-10.8)
[2024-03-31 08:12] LABS: Bacteria Urine None Seen (None Seen); Hyaline Casts Urine 0-2 /LPF (0-2); Squamous Epithelial Cell Urine 0-2 /HPF (0-2); WBC Urine 0-5 /HPF (0-5)
[2024-03-31 08:51] LABS: Alanine Aminotransferase 41 U/L (0-40); Albumin Level 4.1 g/dL (3.5-5.0); Alkaline Phosphatase 73 U/L (39-117); Anion Gap 15 (12-20); Aspartate Amino Transferase 30 U/L (5-37); Bilirubin Total 0.6 mg/dL (0.0-1.0); Blood Urea Nitrogen 14 mg/dL (9-16); Calcium 10.2 mg/dL (8.4-10.2); Carbon Dioxide 26 mmol/L (22-29); Chloride 107 mmol/L (96-108); Cholesterol 192 mg/dL (<200); Estimated Glomerular Filt Rate > 60; Glucose Fasting 110 mg/dL (60-99); HDL Cholesterol 53 mg/dL (>40); LDL Cholesterol Calculated 103 mg/dL (<100); Potassium 4.3 mmol/L (3.3-5.1); Sodium 144 mmol/L (135-145); Total Protein 6.5 g/dL (6.5-8.0); Triglycerides 181 mg/dL (<150)
[2024-03-31 09:10] LABS: Prostate Specific Antigen < 0.10 ng/mL (<0.05-4.0); TSH reflex Free T4 1.49 uIU/mL (0.32-4.0); Vitamin D 25-OH Total 17.9 ng/mL (>30)
[2024-04-05 13:58] LABS: Testosterone, Total 5 ng/dL (250-1100)
== END 2024-03-31 07:05 | disposition home or self-care (01) ==
LOC: HO.LAB 07:04
PROVIDERS: Urology; PCP Internal Medicine; Visit Provider Internal Medicine
DX: Z00.00 Encounter for general adult medical examination without abnormal findings (principal); Z12.5 Encounter for screening for malignant neoplasm of prostate; R30.0 Dysuria; E78.00 Pure hypercholesterolemia, unspecified; C61 Malignant neoplasm of prostate
CPT/HCPCS: 36415; 80053; 80061; 81001; 81003; 82306; 84153; 84403; 84443; 85025

== ENCOUNTER 2024-04-03 13:49 | Outpatient (AMB) | payer MEDICARE, SELFPAY ==
[2024-04-03 13:51] VITALS: BP 88/60; PULSE 60; O2SAT 97; BMI 27.1
--- NOTE | 2024-04-03 13:51 | A.OFFPC_ITS ---
Vital Signs 04/03/24 13:51 Height 5 ft 6 in Weight 168 lb 0.2 oz BMI 27.1 BP 88/60 L Blood Pressure Location Lt brachial Position Sitting Pulse 60 Pulse Source Pulse Oximeter Pulse Oximetry (%) 97 Oxygen Delivery Method Room Air Intake Visit Reasons: Annual PE Intake Note: Patient is here today for a physical. Contract Consultant Required: No Allergies No Known Allergies Allergy (Mild, Verified 08/07/24 16:01) NKA Medication List - Last Reconciled 08/12/24 by Nikos Villasenor MD aspirin 81 mg PO DAILY 90 days atorvastatin 80 mg PO BEDTIME 90 days cholecalciferol (vitamin D3) 50 mcg PO DAILY 90 days clotrimazole-betamethasone 1-0.05 % 1 appl topical BID 4 weeks cyclobenzaprine 10 mg PO BEDTIME finasteride 5 mg PO DAILY 90 days leuprolide acetate (6 month) (Eligard) 45 mg subcut [id number] nystatin 1 appl topical TID sucralfate TAKE 1 TABLET BY MOUTH TWICE A DAY valacyclovir 1,000 mg PO BID 10 days Tobacco use date assessed: 04/03/24 Fall risk assessment: No Falls in past year Last assessed Fall Risk: 04/03/24 Dental Screening Dental Screen Date: 04/03/24 Did you have a dental visit in the last 12 months?: No Did you have a dental problem in the last 6 months where you did not have access to dental care?: No HPI Annual PE HPI Details Patient comes in today for his annual physical examination States that he feels okay He denies any headaches or dizziness Denies any chest pains, no SOB No nausea/vomiting, no abdominal pain No change in bowel habits noted He denies any acute urinary symptoms He needs his Valacyclovir Rx refilled He had his follow up labs done a few days ago - to discuss his results He has never had a colonoscopy done in the past (by personal choice) but he finally had a Cologuard test done back on 01/30/2024 - Cologuard testing came back negative [facility] Medical History (Updated 08/12/24 @ 16:52 by Nikos Villasenor MD) Vitamin D deficiency Colonoscopy refused Overweight (BMI 25.0-29.9) Pure hypercholesterolemia Hx of coronary angiogram Insomnia Coronary atherosclerosis Prostate cancer GERD (gastroesophageal reflux disease) Surgical History S/P drug eluting coronary stent placement (~03/25/23) Stented coronary artery History of right inguinal hernia repair (~04/2009) History of inguinal hernia repair History of tonsillectomy and adenoidectomy Family History Father No problems noted. Mother No problems noted. Social History Housing: Apartment Patient Tobacco Use Status: Former Tobacco user e-Cigarette/Vaping Use: Never Used service: No Current occupational status: employed Cognitive needs: No Hearing needs: No Vision needs: No Questionnaire PHQ-9 Over the last 2 weeks, how often have you been bothered by any of the following problems? 1. Little interest or pleasure in doing things: not at all 2. Feeling down, depressed, or hopeless: not at all 3. Trouble falling or staying asleep, or sleeping too much: not at all 4. Feeling tired or having little energy: not at all 5. Poor appetite or overeating: not at all 6. Feeling bad about yourself - or that you are a failure or have let yourself or your family down: not at all 7. Trouble concentrating on things, such as reading the newspaper or watching television: not at all 8. Moving or speaking so slowly that other people could have noticed. Or the opposite - being so fidgety or restless that you have been moving around a lot more than usual: not at all 9. Thoughts that you would be better off or of hurting yourself in some way: not at all Total score: 0 Depression Screening Interpretation: Negative Depression Screening Done: Yes 76349 - PHQ-9 Billing: Yes Source: Developed by Drs. Amadou Canas, Katharine Lamb, Walter Gupta and colleagues, with an educational aimee from [employer]. Thrive Questionnaire Date Thrive assessed: 01/18/24 AUDIT C Alcohol Use Questionnaire (AUDIT-C) 1. How often do you have a drink containing alcohol?: 4 or more times a week 2. How many drinks containing alcohol do you have on a typical day when you are drinking?: 1 or 2 3. How often do you have six or more drinks on one occasion?: Never Total Score: 4 Score Reviewed/Action Taken: Yes RAUL-7 AMB Questionnaire RAUL-7 Date RAUL - 7 assessed: 01/18/24 Feeling nervous, anxious, or on edge: 0 = Not at all Not being able to stop or control worryin = Not at all Worrying too much about different things: 0 = Not at all Trouble relaxin = Not at all Being so restless that it is hard to sit still: 0 = Not at all Becoming easily annoyed or irritable: 0 = Not at all Feeling afraid as if something awful might happen: 0 = Not at all Total RAUL-7 score (0-4 normal; 5-9 mild; 10-14 moderate; 15-21 severe): 0 Source: Developed by Drs. Amadou Canas, Katharine Lamb, Walter Gupta and colleagues, with an educational aimee from [employer]. RAUL-7 Assessment Billing RAUL-7 Assessment Tool: RAUL-7 Assessment 04061 Review of Systems Const Denies chills, Reports difficulty sleeping (chronic), Reports fatigue, Denies fever(s), Denies headache(s), Denies malaise and Denies weakness Eyes Denies blurry vision, Denies change in vision, Denies irritation and Denies itchy eyes ENT Denies dysphagia, Denies dizziness, Denies otalgia, Denies headache(s), Denies nasal congestion, Denies neck pain, Denies odynophagia and Denies sore throat Card Denies chest pain, Denies rapid heart rate, Denies irregular heart rhythm, Denies palpitations and Denies dyspnea Resp Denies chest congestion, Denies cough, Denies dyspnea and Denies wheezing GI Denies abdominal pain, Denies bloating, Denies constipation, Denies dysphagia, Denies heartburn, Denies diarrhea, Denies nausea, Denies odynophagia and Denies vomiting Denies hematuria, Denies difficulty urinating, Denies dysuria, Denies urinary frequency and Denies urinary urgency Musc Denies back pain, Denies arthralgias, Denies joint swelling, Denies muscle weakness and Denies neck pain Skin/Breast Denies change in pigmentation, Denies lesions, Denies rash and Denies unusual bruising Neuro Denies dizziness, Denies headache(s), Denies paresthesias and Denies weakness Psych Denies anxiety and Denies depression Endo Reports fatigue and Denies palpitations Aller/Immun Denies itchy eyes and Denies wheezing Physical exam (Primary Care) Vital Signs: Last Vital Signs Pulse 60 04/03/24 13:51 BP 88/60 L 04/03/24 13:51 Pulse Ox 97 04/03/24 13:51 Oxygen Delivery Method Room Air 04/03/24 13:51 BMI result Body Mass Index 27.1 Tobacco/Smoking Status: Tobacco use Status Tobacco use date assessed 04/03/24 04/03/24 13:52 Patient Tobacco Use Status Former Tobacco user 04/03/24 13:52 e-Cigarette/Vaping Use Never Used 04/03/24 13:52 PHQ-9: PHQ-9 Score PHQ-9: Total score 0 08/12/24 16:20 Depression Screening Interpretation: Negative Thrive Assessment: Date of Thrive Assessment Date Thrive assessed 01/18/24 04/03/24 13:52 Const General: no acute distress, alert and awake Orientation/consciousness: patient oriented x3 HENMT Head: Yes normocephalic and Yes atraumatic Ears: external ears normal, TM's normal bilaterally and EAC's normal General nose exam: No nasal discharge present Face and sinus: Yes normal facial exam and Yes sinuses nontender Teeth and gingiva: dentition normal Throat: Yes posterior oropharynx normal and Yes tonsils normal (no TP congestion) Eyes Eyelids: Yes eyelids normal Conjunctivae: conjunctivae normal Pupils: Equal, round and reactive pupils present EOM: EOMs intact bilaterally Neck Neck: Yes no lymphadenopathy and Yes supple Thyroid: Thyroid normal Resp Auscultation: clear to auscultation bilaterally, no rales and no wheezes Cardio Rate: regular rate Rhythm: regular rhythm Heart sounds: no murmurs GI Palpation (GI): Soft to palpation, nontender and No hepatosplenomegaly present Auscultation: normal bowel sounds General: Yes no CVA tenderness Back/Spine/Pelvis Back: no CVA tenderness Thoracic/Lumbar Spine: thoracic and lumbar spine normal to inspection Skin Lesions: no lesions Rashes: no rashes Neuro General: patient oriented x3, moves all extremities, no focal motor deficits and CN's II-XI intact bilaterally Cranial nerves: Yes Equal, round and reactive pupils present Cognition (Neuro): normal cognition Gait exam (Neuro): Normal gait present Extrem General: Yes no clubbing, cyanosis or edema Results Reviewed Results Reviewed: Laboratory Tests 03/31/24 03/31/24 07:17 07:22 WBC 5.8 Hgb 14.7 Hct 44.0 Plt Count 246 Sodium 144 Potassium 4.3 Creatinine 0.75 Estimated GFR > 60 Fasting Glucose 110 H Calcium 10.2 D AST 30 ALT 41 H Triglycerides 181 H Cholesterol 192 LDL Cholesterol, Calc 103 H HDL Cholesterol 53 Prostate Specific Ag < 0.10 25-OH Vitamin D Total 17.9 L TSH 1.49 Total Testosterone 5 L Ur Specific [place] 1.020 Urine Protein Negative Urine Glucose (UA) Negative Urine Blood Trace H Urine Nitrite Negative Ur Leukocyte Esterase Negative Assessment and Plan Assessment & Plan (1) Annual physical exam: Code(s): Z00.00 - Encounter for general adult medical examination without abnormal findings Plan: Results of his labs done a few days ago reviewed and discussed with patient He has never had a colonoscopy done in the past (by personal choice) but he finally had a Cologuard test done back on 01/30/2024 - Cologuard testing came back negative He will be due for repeat Cologuard OR regular colonoscopy in 3 years (2026) (2) Coronary atherosclerosis: Comment: NSTEMI on 03/24/2023; cardiac cath done on 03/25/23 revealed 100% stenosis of proximal OM1 - S/P KERRY Code(s): I25.10 - Atherosclerotic heart disease of [place] coronary artery without angina pectoris Qualifiers: Associated angina: without angina Coronary Disease-Associated Artery/Lesion type: [place] artery [place] vs. transplanted heart: [place] heart Qualified Code(s): I25.10 - Atherosclerotic heart disease of [place] coronary artery without angina pectoris Plan: S/P NSTEMI in 02/2023; S/P KERRY to proximal OM1 Continue Clopidogrel 75 mg QD, Aspirin 81 mg QD and Metoprolol 12.5 mg BID Patient is completely asymptomatic from a cardiac standpoint Follow up with cardiology as scheduled (3) Pure hypercholesterolemia: Code(s): E78.00 - Pure hypercholesterolemia, unspecified Plan: He is cautioned that all of his cholesterol levels have increased significantly from previous Reinforced low cholesterol diet Continue Atorvastatin 80 mg QD - he admits to forgetting to take his medication at times and will try to improve on this Will recheck his labs and fasting lipids in 4 months for follow up (4) Prostatic adenocarcinoma: Comment: high-grade, initial therapy external beam radiation with GnRH Code(s): C61 - Malignant neoplasm of prostate Plan: S/P initial Tx with external beam radiation to prostate and to the pelvic lymph nodes with Bicalutamide Continue Eligard 45 mg Q 6 months for hormonal suppression and Finasteride 5 mg QD Follow up with urology as scheduled (5) Hypotestosteronism: Code(s): E34.9 - Endocrine disorder, unspecified Plan: At his request, we looked up the result of his testosterone level (test was ordered by Dr. Velasquez) and have advised him that his testosterone level is very low but this is expected as he is on Tx with GnRH for his prostate cancer Follow up with urology as scheduled (6) GERD (gastroesophageal reflux disease): Code(s): K21.9 - Gastro-esophageal reflux disease without esophagitis Qualifiers: Esophagitis presence: without esophagitis Qualified Code(s): K21.9 - Gastro-esophageal reflux disease without esophagitis Plan: Dietary restrictions reinforced Continue Famotidine 10 mg QD PRN (7) Vitamin D deficiency: Code(s): E55.9 - Vitamin D deficiency, unspecified Plan: He is advised that his Vitamin D level was low on his recent labs Will start him on Vitamin D3 2000 units QD (8) History of herpes genitalis: Code(s): Z86.19 - Personal history of other infectious and parasitic diseases Plan: Continue episodic Tx with Valtrex 1 gm BID x 10 days ONLY if (+) acute flare ups of genital herpes - Rx refilled per request (9) Insomnia: Code(s): G47.00 - Insomnia, unspecified Qualifiers: Insomnia type: unspecified Qualified Code(s): G47.00 - Insomnia, unspecified Plan: Sleep hygiene reinforced Continue Trazodone 50 mg Q HS PRN (10) Overweight (BMI 25.0-29.9): Code(s): E66.3 - Overweight Plan: Reinforced diet/exercise as tolerated/lose weight Plan Follow up in 4 months Orders: Orders Complete Blood Count Auto Diff 4 Months D64.9 - Anemia, unspecified UA CC w/rflx Micro + Cult 4 Months R30.0 - Dysuria Comprehensive [place]. Panel Fast 4 Months E78.00 - Pure hypercholesterolemia, unspecified Lipid Panel 4 Months E78.00 - Pure hypercholesterolemia, unspecified TSH reflex Free T4 4 Months E78.00 - Pure hypercholesterolemia, unspecified Vitamin D 25-OH Total 4 Months E55.9 - Vitamin D deficiency, unspecified Hemoglobin A1c 4 Months R73.01 - Impaired fasting glucose Medications: New cholecalciferol (vitamin D3) 50 mcg PO DAILY 90 caps 3RF 90 days E55.9 - Vitamin D deficiency, unspecified sucralfate 1 g PO BID 60 tabs 3RF 30 days Changed From valacyclovir 1,000 mg PO BID 10 days 20 tabs 0RF B02.9 - Zoster without complications To valacyclovir 1,000 mg PO BID 20 tabs 0RF 10 days B02.9 - Zoster without complications Coding Level of Care Code Est Pt Prev Care >65y(76204) Diagnoses Annual physical exam Z00.00 Atherosclerosis of [place] coronary artery of [place] heart without angina pectoris I25.10 Associated angina: without angina Coronary Disease-Associated Artery/Lesion type: [place] artery [place] vs. transplanted heart: [place] heart Pure hypercholesterolemia E78.00 Prostatic adenocarcinoma C61 Hypotestosteronism E34.9 Gastroesophageal reflux disease without esophagitis K21.9 Esophagitis presence: without esophagitis Vitamin D deficiency E55.9 History of herpes genitalis Z86.19 Insomnia, unspecified type G47.00 Insomnia type: unspecified Overweight (BMI 25.0-29.9) E66.3 Additional Codes RAUL-7 Assessment Billing - RAUL-7 Assessment Tool: RAUL-7 Assessment 49148 ([id number])
== END 2024-04-03 14:27 | disposition home or self-care (01) ==
LOC: HO.HMGH 13:49
PROVIDERS: PCP Internal Medicine; Visit Provider Internal Medicine
DX: Z00.00 Encounter for general adult medical examination without abnormal findings (principal); I25.10 Atherosclerotic heart disease of native coronary artery without angina pectoris; E78.00 Pure hypercholesterolemia, unspecified; C61 Malignant neoplasm of prostate; E34.9 Endocrine disorder, unspecified; K21.9 Gastro-esophageal reflux disease without esophagitis; E55.9 Vitamin D deficiency, unspecified; Z86.19 Personal history of other infectious and parasitic diseases; G47.00 Insomnia, unspecified; E66.3 Overweight
CPT/HCPCS: 99397

== ENCOUNTER 2024-04-20 09:28 | Outpatient (AMB) | payer MEDICARE, SELFPAY ==
--- NOTE | 2024-04-20 09:30 | MHC.OFFVIS ---
Intake Visit Reasons: 3m/labs(set) Intake Note: Patient is Present for Telephone Follow Up For Urology Med:Finasteride Antibiotic Allergy:None Blood Thinner: Aspirin Allergies No Known Allergies Allergy (Mild, Verified 04/03/24 13:55) NKA HPI Comments Details: Narayan is a patient male. He is a patient of Dr. Villasenor. He is seen for following urologic conditions - prostate cancer - radiation oncology [facility] Telemedicine Evaluation 15 min Consultation Doximity [place] Video attempted Four month follow-up lab work Will stop finasteride at that point in time 04/20 Prostate cancer follow-up PSA <0.1, T 5 Continue finasteride Labs 07/20 P 0.12, T 26, 09/19 GnRH, 01/21 <0.1 4 10/[address] Jade Pompa 7800 Gy 39 fractions prostate and pelvis GnRH 02/17, 09/19 Had heart attack in January 2023 after GnRH injection Delayed marker seed placement Will proceed with seed placement Has recovered from single-vessel disease with stent placement Prostate Cancer - 02/17 - high volume, high risk - 1st GnRH 03/20 - EXBRT with radiation MAB during therapy completed 10/20 (bicalutamide, finasteride, GnRH) Dr Jade Pompa PSA at diagniosis 15 Histologic type: Prostatic acinar adenocarcinoma: [place] score: 3+4+7 (F); 4+3+7 (A, C, D, E,J and L); 4+4=8 (H, I, K); 4+5=9 (B) Total Cores 12 Positive Cores 12 % volume 910/1200 Periprostatic fat inv.: Not identified Seminal vesicle inv.: Not identified Perineural inv.: Present LVI: Not identified Clinical T2c - JAYANT bilateral prostate firmness Initial Staging - 02/17 bone scan degenerative changes consistent with arthritis. No evidence of metastatic prostate cancer - 03/20 CT scan pelvis no evidence of lymphadenopathy, no evidence of metastatic disease PFSH Medical History Overweight (BMI 25.0-29.9) Pure hypercholesterolemia Hx of coronary angiogram Insomnia Coronary atherosclerosis Prostate cancer GERD (gastroesophageal reflux disease) Surgical History S/P drug eluting coronary stent placement (~03/25/23) Stented coronary artery History of right inguinal hernia repair (~04/2009) History of inguinal hernia repair History of tonsillectomy and adenoidectomy Family History Father No problems noted. Mother No problems noted. Social History Housing: Apartment Patient Tobacco Use Status: Former Tobacco user e-Cigarette/Vaping Use: Never Used service: No Current occupational status: employed Cognitive needs: No Hearing needs: No Vision needs: No Review of Systems Const All systems reviewed & are unremarkable except as noted in HPI and below Reports no additional complaints Resp Reports no additional complaints GI Reports no additional complaints Reports as per HPI Musc Reports no additional complaints Physical Exam Telemedicine evaluation Appropriate responses Regular breathing rate and rhythm HEENT Head: Yes normal to inspection Ears: hearing grossly normal bilaterally Eyes General: appearance normal, both eyes and all related structures Neck Neck: Yes normal visual inspection Chest Chest palpation & inspection: normal inspection of the chest Resp Effort & Inspection: normal respiratory effort and able to speak in complete sentences Telehealth Telehealth Telehealth Platform: AskU Location of provider rendering services: practice address Location of patient: address on file Patient Identification confirmed using: Name, : Yes Telehealth method: video Patient verbally consented to treatment: Yes Patient verbally consented to billing insurance company: Yes Patient informed of any privacy concerns related to visit: Yes Minutes spent on Phone/Video with Pt.: 15 Assessment & Plan Assessment & Plan (1) Prostatic adenocarcinoma: Comment: high-grade, initial therapy external beam radiation with GnRH Code(s): C61 - Malignant neoplasm of prostate Category: Medical Plan Four month follow-up lab work Orders: Orders Testosterone, Total 4 Months C61 - Malignant neoplasm of prostate Prostate Specific Antigen 4 Months C61 - Malignant neoplasm of prostate Patient Instructions: Imaging studies, laboratory and physical exam results were discussed and reviewed in detail. No major barriers to patient understanding were identified. An opportunity to ask questions regarding the treatment plan was provided. All questions were answered. The patient expressed understanding and agreement with the above treatment plan. The patient is aware they should contact our office by phone for worsening of their current condition or the appearance of new urologic symptoms. Compliance is encouraged with any medications and followup testing that is ordered. It is a privilege to participate in the urologic care of your patient. If you have any questions or concerns regarding treatment for the above conditions, or other urologic issues, please do not hesitate to contact me. The office telephone contact is [phone]. This note is constructed using voice recognition software. While every effort has been made to ensure accuracy reactor technician errors may have been included. Yours sincerely, Dr Ac Velasquez MD, [facility] - Urology Providers of Expert, Compassionate Care for the Genitourinary System Coding Level of Care Code Tele Est Pt Level 3 (92891) Complex EM visit Add On G2211 Diagnoses Prostatic adenocarcinoma C61
== END 2024-04-20 10:13 | disposition home or self-care (01) ==
LOC: HO.HUSH 09:28
PROVIDERS: PCP Internal Medicine; Visit Provider Urology
DX: C61 Malignant neoplasm of prostate (principal)
CPT/HCPCS: 99213; G2211

== ENCOUNTER → 2024-04-20 09:28 | Outpatient (BNVA) | payer MEDICARE, SELFPAY | PROVIDERS: PCP Internal Medicine; Visit Provider Urology ==

== ENCOUNTER → 2024-05-28 14:52 | Outpatient (REF) | payer MEDICARE, SELFPAY ==
--- NOTE | 2024-05-28 14:57 | CA_ITS ---
Transthoracic Echocardiogram Patient (Last, First, Middle): Narayan Corral O Gender: Male Date of : 1950 Age: 74 Procedure Date: 05/28/2024 Procedure Type: Transthoracic Echocardiogram Location: OP Height: 167.64 cm Weight: 74.84 kg BSA: 1.84 m2 Heart Rate: bpm BP: 105 / 70 mmHg Incoming Inspector: THOMPSON Referring MD: Patel Ledesma MD Symptoms: I25.10 - Atherosclerotic heart disease of [place] coronary artery without... Study Quality: Technically Difficult ECG Rhythm: Sinus Conclusions: - The left ventricular systolic function is normal. The calculated ejection fraction is 56% by biplane method. Findings Left Ventricle Normal left ventricular cavity size. There is mildly increased left ventricular wall thickness. The left ventricular systolic function is normal. The calculated ejection fraction is 56% by biplane method. There is no evidence of regional wall motion abnormalities. Evidence suggests grade I (mild) diastolic dysfunction. LV peak GLS -16.3%; possible underestimation. Right Ventricle Normal right ventricular cavity size and systolic function. Atria Both atria are normal in size. Aortic Valve There is a normal trileaflet aortic valve. There is mild calcification of the aortic valve. There is no aortic valve stenosis. There is no aortic valve regurgitation. Mitral Valve There is mild mitral annular calcification. There is trace mitral valve regurgitation. There is no mitral valve stenosis. Pulmonic Valve The pulmonic valve is likely normal. Tricuspid Valve There is trace tricuspid valve regurgitation. There is no evidence of pulmonary hypertension. Great Vessels The asc aorta is normal in size. Venous The inferior vena cava is normal in size and collapses greater than 50% with inspiration. Pericardium/Pleural There is no evidence of pericardial effusion. Prior Study Comparison No prior study available for comparison. Measurements 2D Linear Measurements IVSd: 1.19 0.6-0.9/0.6-1.0 cm LVIDd: 3.32 3.9-5.3/4.2-5.9 cm LVIDd Index: 1.80 2.4-3.2/2.2-3.1 cm/m2 LVIDs: 1.57 2.0-3.6 cm LVPWd: 1.17 0.7-1.1 cm LA Diam: 2.90 2.7-3.8/3.0-4.0 cm LAIDs Index: 1.58 1.5-2.3 cm/m2 LV Mass: 152.52 67-162/88-224 g LV Mass Index: 82.89 43-95/49-115 g/m2 LVOT Diam: 1.80 3.0+(-)1.3 cm 2D Systolic Function EF 4C: 55.10 >55% EF 2C: 56.80 >55% EF BiP: 56.10 >55% Mitral Valve MV Pk E: 0.55 MV PK A: 0.93 MV Decel Time: 316.00 E/A: 0.60 E'Lateral: 8.49 E'Medial: 7.40 E/E' Med: 7.40 E/E' Lat: 6.50 PHT: 93.00 MVA PHT: 2.37 Decel [place]: 1.74 Aortic Valve AoV Pk Peter: 1.21 AoV Mn Peter: 0.88 AoV VTI: 0.23 AoV Pk Grad: 6.00 Aov Mn Grad: 3.00 LATHA Cont.VTI: 2.16 LVOT LVOT Pk Peter: 0.97 LVOT Mn Peter: 0.73 LVOT VTI: 0.20 LVOT Pk Grad: 4.00 LVOT Mn Grad: 2.00 LVOT Diam: 1.80 LVOT Area: 2.54 Diastolic Function MV Pk E: 0.55 MV Pk A: 0.93 E/A: 0.60 E'Medial: 7.40 E/E' Med: 7.40 E' Laterial: 8.49 E/E' Lat: 6.50 Right Ventricle TAPSE (mm): 22.60 TVS' Peter: 18.60 Tricuspid Valve TR Pk Peter: 1.76 TR Pk Grad: 12.00 RA Press: 3.00 RVSP: 15.00 Great Vessels Aorta Sinus of Valsalva: 3.60 2.0-3.5 cm Ao Asc: 3.50 2.1-3.4 cm Pulmonary Valve PV Pk Peter: 1.07 Peak PV Grad: 5.00 Updated in Other Vendor System with Status of Final Patel Ledesma MD electronically signed on 05/29/2024 1:48:38 PM with status of Final
== END ==
LOC: HO.CARD 14:52
PROVIDERS: PCP Internal Medicine; Visit Provider Internal Medicine
DX: I25.10 Atherosclerotic heart disease of native coronary artery without angina pectoris (principal)
CPT/HCPCS: 93306; 93356

== ENCOUNTER → 2024-05-28 14:57 | Outpatient (BNV) | payer MEDICARE, SELFPAY | PROVIDERS: PCP Internal Medicine; Visit Provider Internal Medicine | DX: I35.8 Other nonrheumatic aortic valve disorders (principal); I34.81 Nonrheumatic mitral (valve) annulus calcification | CPT/HCPCS: 93306; 93356 ==

== ENCOUNTER 2024-06-21 13:42 | Outpatient (AMB) | payer MEDICARE, SELFPAY ==
[2024-06-21 13:43] VITALS: BP 100/70; PULSE 67; BMI 26.7
--- NOTE | 2024-06-21 13:43 | MHC.OFFVIS ---
Vital Signs 06/21/24 13:43 Height 5 ft 6 in Weight 165 lb 5.547 oz BMI 26.7 BP 100/70 Blood Pressure Location Lt brachial Position Sitting Pulse 67 Intake Visit Reasons: 6 mth f/up echo Automatic Thread Winder Required: No Accompanied by: Self / Same As Patient Allergies No Known Allergies Allergy (Mild, Verified 04/03/24 13:55) NKA Medication List - Last Reconciled 06/21/24 by Patel Ledesma MD aspirin 81 mg PO DAILY 90 days atorvastatin 80 mg PO BEDTIME 90 days cholecalciferol (vitamin D3) 50 mcg PO DAILY 90 days clotrimazole-betamethasone 1-0.05 % 1 appl topical BID 4 weeks cyclobenzaprine 10 mg PO BEDTIME finasteride 5 mg PO DAILY 90 days leuprolide acetate (6 month) (Eligard) 45 mg subcut [id number] metoprolol tartrate 12.5 mg (1/2 x 25 mg) PO BID 90 days nystatin 1 appl topical TID sucralfate 1 g PO BID 30 days valacyclovir 1,000 mg PO BID 10 days HPI Comments Details: Narayan returns for follow-up regarding coronary disease. In 02/2023, treated for NSTEMI. Underwent cardiac catheterization and stenting of the OM1. From cardiac standpoint he does not have any anginal-type symptoms are anything along those lines. He states he just get tired and fatigued and does not have a lot of energy. Not clear if it is because of low blood pressure. Also has prostate cancer history. 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 [facility] Medical History Overweight (BMI 25.0-29.9) Pure hypercholesterolemia Hx of coronary angiogram Insomnia Coronary atherosclerosis Prostate cancer GERD (gastroesophageal reflux disease) Surgical History S/P drug eluting coronary stent placement (~03/25/23) Stented coronary artery History of right inguinal hernia repair (~04/2009) History of inguinal hernia repair History of tonsillectomy and adenoidectomy Family History Father No problems noted. Mother No problems noted. Social History Housing: Apartment Patient Tobacco Use Status: Former Tobacco user e-Cigarette/Vaping Use: Never Used service: No Current occupational status: employed Cognitive needs: No Hearing needs: No Vision needs: No Review of Systems Const Denies chills, Reports fatigue, Denies fever(s), Denies weight gain and Denies weight loss ENT Denies dizziness Card Denies chest pain, Denies leg edema, Denies lightheadedness, Denies palpitations, Denies dyspnea on exertion, Denies orthopnea and Denies other Resp Denies cough and Denies dyspnea on exertion GI Denies hematochezia and Denies change in stool character Musc Denies abnormal gait, Denies muscle weakness, Denies numbness, Denies radiating pain into limb and Denies tingling Neuro Denies abnormal gait, Denies dizziness, Denies numbness and Denies tingling Endo Reports fatigue and Denies palpitations Physical Exam Vital Signs: Last Vital Signs Pulse 67 06/21/24 13:43 BP 100/70 06/21/24 13:43 BMI result Body Mass Index 26.7 Const General: comfortable and no acute distress Orientation/consciousness: patient oriented x3 HEENT Other: Unremarkable Head: Yes normal to inspection Neck Neck: Yes normal visual inspection Chest Chest palpation & inspection: normal inspection of the chest Resp Auscultation: clear to auscultation bilaterally Cardio Palpation: normal PMI Heart sounds: S1 normal heart sound present, S2 normal heart sound present, no gallops, no murmurs and no rubs GI Palpation (GI): Soft to palpation Back/Spine/Pelvis Other: unremarkable Skin General skin exam: no rashes or lesions noted Neuro General: patient oriented x3 Extrem General: Yes normal to inspection Psych Mental Status: mental status grossly normal Assessment & Plan Assessment & Plan (1) Coronary atherosclerosis: Comment: NSTEMI on 03/24/2023; cardiac cath done on 03/25/23 revealed 100% stenosis of proximal OM1 - S/P KERRY Code(s): I25.10 - Atherosclerotic heart disease of [place] coronary artery without angina pectoris Category: Medical Qualifiers: Associated angina: without angina Coronary Disease-Associated Artery/Lesion type: [place] artery [place] vs. transplanted heart: [place] heart Qualified Code(s): I25.10 - Atherosclerotic heart disease of [place] coronary artery without angina pectoris (2) Stented coronary artery: Comment: Cardiac catheterization 03/25/2023, occluded OM1, KERRY placed, proximal RCA 40% stenosis, mid LAD 40% stenosis, mid D2 50% stenosis Code(s): Z95.5 - Presence of coronary angioplasty implant and graft Category: Surgical (3) Arterial hypotension: Code(s): I95.9 - Hypotension, unspecified Category: Medical Plan Pertinent documentation was reviewed. Cardiac catheterization from 02/2023- Culprit lesion was thrombotic occlusion of proximal OM 1, status post PCI. Otherwise, proximal RCA with 40% stenosis. Mid LAD 40% stenosis. Mid D2 50% stenosis. Echocardiogram with LVEF of 40-50%. Severe hypokinesis in the basal to mid inferolateral/anterolateral saunders. Mild aortic valve thickening but no significant stenosis or regurgitation. Severe posterior mitral annular calcification. In the most recent echocardiogram preserved LVEF of 55-60% and no wall motion abnormalities. Overall, seems improved. Continue treatment for stable coronary disease. Continue aspirin. No longer on Brilinta or Plavix. He is running low blood pressures and having symptoms like tiredness. Hence we can stop the beta-blockers and see how he does. Hopefully gets some improvement. Discussed about this today. If any issues like chest pains or other concerns, he will contact us. With regard to lipids, LDL levels were 62 and 77, but most recently 103. Could be dietary after discussion with patient. May be repeated in a few months' time. Follow-up in 6 months. Interim, he will call with concerns. Medications: Discontinued metoprolol tartrate Discontinued Reason: Doctor's Order 12.5 mg (1/2 x 25 mg) PO BID 90 days 90 tabs 3RF Coding Level of Care Code Est Pt Level 4 (91717) Diagnoses Atherosclerosis of [place] coronary artery of [place] heart without angina pectoris I25.10 Associated angina: without angina Coronary Disease-Associated Artery/Lesion type: [place] artery [place] vs. transplanted heart: [place] heart Stented coronary artery Z95.5 Arterial hypotension I95.9
== END 2024-06-21 14:04 | disposition home or self-care (01) ==
PROVIDERS: PCP Internal Medicine; Visit Provider Internal Medicine
DX: I25.10 Atherosclerotic heart disease of native coronary artery without angina pectoris (principal); Z95.5 Presence of coronary angioplasty implant and graft; I95.9 Hypotension, unspecified
CPT/HCPCS: 99214

== ENCOUNTER → 2024-06-21 13:42 | Outpatient (BNVA) | payer MEDICARE, SELFPAY | PROVIDERS: PCP Internal Medicine; Visit Provider Internal Medicine | DX: I25.10 Atherosclerotic heart disease of native coronary artery without angina pectoris (principal); I95.9 Hypotension, unspecified; Z95.5 Presence of coronary angioplasty implant and graft | CPT/HCPCS: 99212 ==

== ENCOUNTER 2024-08-04 06:55 | Outpatient (REF) | payer MEDICARE, SELFPAY ==
[2024-08-04 07:21] LABS: MANUAL DIFF FLAG NO
[2024-08-04 08:22] LABS: Basophils Absolute Auto 0.1 X10*3/uL (0.0-0.2); Eosinophils Absolute Auto 0.3 X10*3/uL (0.0-0.4); Eosinophils Percent Auto 4.6 % (0-4); Hematocrit 42.8 % (42.0-52.0); Hemoglobin 14.8 g/dl (14.0-18.0); Imm Gran Abs Auto 0.04 X10*3/uL (0.00-0.03); Imm Gran Pct Auto 0.7 % (0.0-0.4); Lymphocytes Percent Auto 16.7 % (20-40); Mean Corpuscular HGB Conc 34.6 g/dl (31.0-36.0); Mean Corpuscular Hemoglobin 32.9 pg (27.0-33.0); Mean Corpuscular Volume 95.1 fL (80.0-98.0); Mean Platelet Volume 11.2 fL (9.4-12.4); Monocytes Absolute Auto 0.7 X10*3/uL (0.1-1.2); Monocytes Percent Auto 11.6 % (2-11); Neutrophils Absolute Auto 3.8 x10*3/uL (2.0-8.3); Neutrophils Percent Auto 65.4 % (45-73); Platelet Count 295 X10*3/uL (160-400); Red Cell Distribution Width 12.8 % (11.0-16.0); White Blood Count 5.9 X10*3/uL (4.8-10.8)
[2024-08-04 08:30] LABS: Estimated Average Glucose 120 mg/dL; Hemoglobin A1c % 5.8 % (<6.0)
[2024-08-04 09:00] LABS: Appearance Urine Clear; Color Urine Yellow; Glucose Urine UA Negative (Negative); Leukocyte Esterase Urine Negative (Negative); Nitrite Urine Negative (Negative); UMIC TRIGGER UACC YES; Urine Blood Moderate (2+) (Negative); Urine Ketones Negative (Negative); Urine Protein Negative (Neg-Trace)
[2024-08-04 09:04] LABS: Alanine Aminotransferase 50 U/L (0-40); Albumin Level 4.1 g/dL (3.5-5.0); Alkaline Phosphatase 90 U/L (39-117); Anion Gap 12 (12-20); Aspartate Amino Transferase 37 U/L (5-37); Bilirubin Total 0.7 mg/dL (0.0-1.0); Blood Urea Nitrogen 12 mg/dL (9-16); Calcium 9.9 mg/dL (8.4-10.2); Carbon Dioxide 26 mmol/L (22-29); Chloride 107 mmol/L (96-108); Cholesterol 150 mg/dL (<200); Estimated Glomerular Filt Rate > 60; Glucose Fasting 117 mg/dL (60-99); HDL Cholesterol 51 mg/dL (>40); LDL Cholesterol Calculated 77 mg/dL (<100); Potassium 3.8 mmol/L (3.3-5.1); Sodium 141 mmol/L (135-145); Total Protein 6.6 g/dL (6.5-8.0); Triglycerides 112 mg/dL (<150)
[2024-08-04 09:11] LABS: Bacteria Urine None Seen (None Seen); Hyaline Casts Urine 0-2 /LPF (0-2); RBC Urine >20 /HPF (0-2); Squamous Epithelial Cell Urine 0-2 /HPF (0-2); WBC Urine 0-5 /HPF (0-5)
[2024-08-04 09:21] LABS: TSH reflex Free T4 1.42 uIU/mL (0.32-4.0); Vitamin D 25-OH Total 34.7 ng/mL (>30)
== END 2024-08-04 06:56 | disposition home or self-care (01) ==
LOC: HO.LAB 06:55
PROVIDERS: Absent Provider Urology; PCP Internal Medicine; Visit Provider Internal Medicine
DX: E55.9 Vitamin D deficiency, unspecified (principal); R73.01 Impaired fasting glucose; D64.9 Anemia, unspecified; E78.00 Pure hypercholesterolemia, unspecified
CPT/HCPCS: 36415; 80053; 80061; 81001; 81003; 82306; 83036; 84443; 85025

== ENCOUNTER 2024-08-07 15:30 | Outpatient (AMB) | payer MEDICARE, SELFPAY ==
[2024-08-07 15:37] VITALS: BP 110/82; PULSE 76; O2SAT 98; BMI 26.3
--- NOTE | 2024-08-07 15:37 | MHC.PC.OV ---
Vital Signs 08/07/24 15:37 Height 5 ft 6 in Weight 163 lb 4 oz BMI 26.3 BP 110/82 Blood Pressure Location Lt brachial Position Sitting Pulse 76 Pulse Source Pulse Oximeter Pulse Oximetry (%) 98 Oxygen Delivery Method Room Air Intake Visit Reasons: [facility] f/u Aurist Required: No Accompanied by: Self / Same As Patient Allergies No Known Allergies Allergy (Mild, Verified 08/07/24 16:01) NKA Medication List - Last Reconciled 08/07/24 by Nikos Villasenor MD aspirin 81 mg PO DAILY 90 days atorvastatin 80 mg PO BEDTIME 90 days cholecalciferol (vitamin D3) 50 mcg PO DAILY 90 days clotrimazole-betamethasone 1-0.05 % 1 appl topical BID 4 weeks cyclobenzaprine 10 mg PO BEDTIME finasteride 5 mg PO DAILY 90 days leuprolide acetate (6 month) (Eligard) 45 mg subcut [id number] nystatin 1 appl topical TID sucralfate TAKE 1 TABLET BY MOUTH TWICE A DAY valacyclovir 1,000 mg PO BID 10 days Tobacco use date assessed: 08/07/24 Fall risk assessment: No Falls in past year Last assessed Fall Risk: 08/07/24 Dental Screening Dental Screen Date: 08/07/24 Did you have a dental visit in the last 12 months?: Yes Did you have a dental problem in the last 6 months where you did not have access to dental care?: No Was dental information given to patient?: Patient has dentist [facility] HPI Details Patient comes in today for his follow up visit States that he feels okay He denies any headaches or dizziness Denies any chest pains, no SOB No nausea/vomiting, no abdominal pain No change in bowel habits noted He had his follow up labs done a few days ago - to discuss his results [facility] Medical History Overweight (BMI 25.0-29.9) Pure hypercholesterolemia Hx of coronary angiogram Insomnia Coronary atherosclerosis Prostate cancer GERD (gastroesophageal reflux disease) Surgical History S/P drug eluting coronary stent placement (~03/25/23) Stented coronary artery History of right inguinal hernia repair (~04/2009) History of inguinal hernia repair History of tonsillectomy and adenoidectomy Family History Father No problems noted. Mother No problems noted. Social History Housing: Apartment Patient Tobacco Use Status: Former Tobacco user e-Cigarette/Vaping Use: Never Used service: No Current occupational status: employed Cognitive needs: No Hearing needs: No Vision needs: No Questionnaire PHQ-9 Over the last 2 weeks, how often have you been bothered by any of the following problems? 1. Little interest or pleasure in doing things: not at all 2. Feeling down, depressed, or hopeless: not at all 3. Trouble falling or staying asleep, or sleeping too much: not at all 4. Feeling tired or having little energy: not at all 5. Poor appetite or overeating: not at all 6. Feeling bad about yourself - or that you are a failure or have let yourself or your family down: not at all 7. Trouble concentrating on things, such as reading the newspaper or watching television: not at all 8. Moving or speaking so slowly that other people could have noticed. Or the opposite - being so fidgety or restless that you have been moving around a lot more than usual: not at all 9. Thoughts that you would be better off or of hurting yourself in some way: not at all Total score: 0 Depression Screening Interpretation: Negative Depression Screening Done: Yes 73771 - PHQ-9 Billing: Yes Source: Developed by Drs. Amadou Canas, Katharine Lamb, Walter Gupta and colleagues, with an educational aimee from [employer]. Thrive Questionnaire Date Thrive assessed: 08/07/24 I am a: Patient What is your living situation today?: I have a steady place to live Within the past 12 months, did the food you bought not last and you didn't have the money to get more?: Never true Within the past 12 months, did you worry whether your food would run out before you got money to buy more?: Never true Do you have trouble paying for medicines?: No Do you have trouble getting transportation to medical appointments?: No Do you have trouble paying your heating and electricity bill?: No Do you have trouble taking care of your child, family member or friend?: No Do you have trouble with day-to-day activities such as bathing, preparing meals, shopping, managing finances, etc.?: No Are you currently unemployed and looking for a job?: No Are you interested in more education?: No Please select the resources that you would like help with: None Currently or been in a relationship where the following occur: No concerns reported THRIVE Score: 0 AUDIT C Alcohol Use Questionnaire (AUDIT-C) 1. How often do you have a drink containing alcohol?: 4 or more times a week 2. How many drinks containing alcohol do you have on a typical day when you are drinking?: 1 or 2 3. How often do you have six or more drinks on one occasion?: Never Total Score: 4 Score Reviewed/Action Taken: Yes RAUL-7 AMB Questionnaire RAUL-7 Date RAUL - 7 assessed: 08/07/24 Feeling nervous, anxious, or on edge: 0 = Not at all Not being able to stop or control worryin = Not at all Worrying too much about different things: 0 = Not at all Trouble relaxin = Not at all Being so restless that it is hard to sit still: 0 = Not at all Becoming easily annoyed or irritable: 0 = Not at all Feeling afraid as if something awful might happen: 0 = Not at all Total RAUL-7 score (0-4 normal; 5-9 mild; 10-14 moderate; 15-21 severe): 0 Source: Developed by Drs. Amadou Canas, Katharine Lamb, Walter Gupta and colleagues, with an educational aimee from [employer]. RAUL-7 Assessment Billing RAUL-7 Assessment Tool: RAUL-7 Assessment 52504 Review of Systems Const Denies chills, Reports difficulty sleeping (chronic), Reports fatigue, Denies fever(s) and Denies headache(s) ENT Denies dysphagia, Denies dizziness, Denies otalgia, Denies headache(s), Denies neck pain, Denies odynophagia and Denies sore throat Card Denies chest pain, Denies palpitations and Denies dyspnea Resp Denies chest congestion, Denies cough and Denies dyspnea GI Denies abdominal pain, Denies constipation, Denies dysphagia, Denies heartburn, Denies diarrhea, Denies nausea, Denies odynophagia and Denies vomiting Denies dysuria, Denies nocturia and Denies urinary frequency Musc Denies back pain and Denies neck pain Skin/Breast Denies rash Neuro Denies dizziness and Denies headache(s) Psych Denies depression Endo Reports fatigue and Denies palpitations Physical exam (Primary Care) Vital Signs: Last Vital Signs Pulse 76 08/07/24 15:37 BP 110/82 08/07/24 15:37 Pulse Ox 98 08/07/24 15:37 Oxygen Delivery Method Room Air 08/07/24 15:37 BMI result Body Mass Index 26.3 Tobacco/Smoking Status: Tobacco use Status Tobacco use date assessed 08/07/24 08/07/24 15:46 Patient Tobacco Use Status Former Tobacco user 08/07/24 15:46 e-Cigarette/Vaping Use Never Used 08/07/24 15:46 PHQ-9: PHQ-9 Score PHQ-9: Total score 0 08/08/24 12:48 Depression Screening Interpretation: Negative Thrive Assessment: Date of Thrive Assessment Date Thrive assessed 08/07/24 08/07/24 15:46 Currently or been in a relationship where the following occur: No concerns reported Const General: no acute distress and alert HENMT Ears: TM's normal bilaterally and EAC's normal Throat: Yes posterior oropharynx normal and Yes tonsils normal (no TP congestion) Neck Neck: Yes no lymphadenopathy and Yes supple Thyroid: Thyroid normal Resp Auscultation: clear to auscultation bilaterally, no rales and no wheezes Cardio Rate: regular rate Rhythm: regular rhythm Heart sounds: no murmurs GI Palpation (GI): Soft to palpation and nontender Auscultation: normal bowel sounds General: Yes no CVA tenderness Back/Spine/Pelvis Back: no CVA tenderness Skin Rashes: no rashes Extrem General: Yes no clubbing, cyanosis or edema Results Reviewed Results Reviewed: Laboratory Tests 03/31/24 03/31/24 08/04/24 07:17 07:22 07:14 WBC 5.8 Hgb 14.7 Hct 44.0 Plt Count 246 Sodium 144 Potassium 4.3 Creatinine 0.75 Estimated GFR > 60 Fasting Glucose 110 H Hemoglobin A1c % Calcium 10.2 D AST 30 ALT 41 H Triglycerides 181 H Cholesterol 192 LDL Cholesterol, Calc 103 H HDL Cholesterol 53 Prostate Specific Ag < 0.10 25-OH Vitamin D Total 17.9 L TSH 1.49 Ur Specific [place] 1.020 1.020 Urine Protein Negative Negative Urine Glucose (UA) Negative Negative Urine Blood Trace H Moderate (2+) H Urine Nitrite Negative Negative Ur Leukocyte Esterase Negative Negative 08/04/24 07:19 WBC 5.9 Hgb 14.8 Hct 42.8 Plt Count 295 Sodium 141 Potassium 3.8 Creatinine 0.76 Estimated GFR > 60 Fasting Glucose 117 H Hemoglobin A1c % 5.8 Calcium AST 37 ALT 50 H Triglycerides 112 Cholesterol 150 LDL Cholesterol, Calc 77 HDL Cholesterol 51 Prostate Specific Ag 25-OH Vitamin D Total 34.7 TSH 1.42 Ur Specific [place] Urine Protein Urine Glucose (UA) Urine Blood Urine Nitrite Ur Leukocyte Esterase Assessment and Plan Assessment & Plan (1) Coronary atherosclerosis: Comment: NSTEMI on 03/24/2023; cardiac cath done on 03/25/23 revealed 100% stenosis of proximal OM1 - S/P KERRY Code(s): I25.10 - Atherosclerotic heart disease of [place] coronary artery without angina pectoris Qualifiers: Associated angina: without angina Coronary Disease-Associated Artery/Lesion type: [place] artery [place] vs. transplanted heart: [place] heart Qualified Code(s): I25.10 - Atherosclerotic heart disease of [place] coronary artery without angina pectoris Plan: S/P NSTEMI in 02/2023; S/P KERRY to proximal OM1 Continue Clopidogrel 75 mg QD, Aspirin 81 mg QD and Metoprolol 12.5 mg BID He is currently asymptomatic from a cardiac standpoint Follow up with cardiology as scheduled (2) Pure hypercholesterolemia: Code(s): E78.00 - Pure hypercholesterolemia, unspecified Plan: Results of his labs done a few days ago reviewed and discussed with patient Reinforced low cholesterol diet Continue Atorvastatin 80 mg QD Will recheck his labs and fasting lipids on 4 months for follow up (3) Prostatic adenocarcinoma: Comment: high-grade, initial therapy external beam radiation with GnRH Code(s): C61 - Malignant neoplasm of prostate Plan: S/P initial Tx with external beam radiation to prostate and to the pelvic lymph nodes with Bicalutamide Continue Eligard 45 mg Q 6 months and Finasteride 5 mg QD Follow up with urology as scheduled for continuing management and surveillance (4) Hypotestosteronism: Code(s): E34.9 - Endocrine disorder, unspecified Plan: Have advised patient that his testosterone level is very low on his recent labs but this is expected because he is on Tx with GnRH for his prostate cancer Follow up with urology as scheduled regarding this although have advised that with his situation, there may not really be much else we can do for this (5) GERD (gastroesophageal reflux disease): Code(s): K21.9 - Gastro-esophageal reflux disease without esophagitis Qualifiers: Esophagitis presence: without esophagitis Qualified Code(s): K21.9 - Gastro-esophageal reflux disease without esophagitis Plan: Dietary restrictions reinforced Continue Famotidine 10 mg QD PRN (6) History of herpes genitalis: Code(s): Z86.19 - Personal history of other infectious and parasitic diseases Plan: Continue episodic Tx with Valtrex 1 gm BID x 10 days ONLY if he has acute flare ups of genital herpes (7) Insomnia: Code(s): G47.00 - Insomnia, unspecified Qualifiers: Insomnia type: unspecified Qualified Code(s): G47.00 - Insomnia, unspecified Plan: Sleep hygiene reinforced Continue Trazodone 50 mg Q HS PRN (8) Overweight (BMI 25.0-29.9): Code(s): E66.3 - Overweight Plan: Reinforced diet/exercise as tolerated/lose weight Plan Follow up in 4 months Orders: Orders Comprehensive [place]. Panel Fast 4 Months E78.00 - Pure hypercholesterolemia, unspecified Lipid Panel 4 Months E78.00 - Pure hypercholesterolemia, unspecified UA CC w/rflx Micro + Cult 4 Months R30.0 - Dysuria Vitamin D 25-OH Total 4 Months E55.9 - Vitamin D deficiency, unspecified Complete Blood Count Auto Diff 4 Months D64.9 - Anemia, unspecified Hemoglobin A1c 4 Months R73.01 - Impaired fasting glucose Coding Level of Care Code Est Pt Level 4 (72865) Diagnoses Atherosclerosis of [place] coronary artery of [place] heart without angina pectoris I25.10 Associated angina: without angina Coronary Disease-Associated Artery/Lesion type: [place] artery [place] vs. transplanted heart: [place] heart Pure hypercholesterolemia E78.00 Prostatic adenocarcinoma C61 Hypotestosteronism E34.9 Gastroesophageal reflux disease without esophagitis K21.9 Esophagitis presence: without esophagitis History of herpes genitalis Z86.19 Insomnia, unspecified type G47.00 Insomnia type: unspecified Overweight (BMI 25.0-29.9) E66.3 Additional Codes RAUL-7 Assessment Billing - RAUL-7 Assessment Tool: RAUL-7 Assessment 32765 ([id number])
== END 2024-08-07 16:12 | disposition home or self-care (01) ==
PROVIDERS: PCP Internal Medicine; Visit Provider Internal Medicine
DX: I25.10 Atherosclerotic heart disease of native coronary artery without angina pectoris (principal); E78.00 Pure hypercholesterolemia, unspecified; C61 Malignant neoplasm of prostate; E34.9 Endocrine disorder, unspecified; K21.9 Gastro-esophageal reflux disease without esophagitis; Z86.19 Personal history of other infectious and parasitic diseases; G47.00 Insomnia, unspecified; E66.3 Overweight
CPT/HCPCS: 99214

== ENCOUNTER 2024-08-15 14:26 | Outpatient (REF) | payer MEDICARE, SELFPAY ==
[2024-08-15 16:35] LABS: Prostate Specific Antigen < 0.10 ng/mL (<0.05-4.0)
[2024-08-21 14:53] LABS: Testosterone, Total 7 ng/dL (250-1100)
== END 2024-08-15 14:27 | disposition home or self-care (01) ==
LOC: HO.LAB 14:26
PROVIDERS: PCP Internal Medicine; Visit Provider Urology
DX: C61 Malignant neoplasm of prostate (principal); Z12.5 Encounter for screening for malignant neoplasm of prostate
CPT/HCPCS: 36415; 84153; 84403

== ENCOUNTER 2024-09-07 16:04 | Outpatient (AMB) | payer MEDICARE, SELFPAY ==
--- NOTE | 2024-09-07 16:08 | MHC.OFFVIS ---
Intake Visit Reasons: 4M Follow Up-PSA/Testosterone(set) Intake Note: Patient is present for PSA/Testosterone follow up Allergies No Known Allergies Allergy (Mild, Verified 09/22/24 14:00) NKA Medication List - Last Reconciled 09/07/24 by Ac Velasquez MD aspirin 81 mg PO DAILY 90 days atorvastatin 80 mg PO BEDTIME 90 days cholecalciferol (vitamin D3) 50 mcg PO DAILY 90 days clotrimazole-betamethasone 1-0.05 % 1 appl topical BID 4 weeks cyclobenzaprine 10 mg PO BEDTIME nystatin 1 appl topical TID sucralfate TAKE 1 TABLET BY MOUTH TWICE A DAY valacyclovir 1,000 mg PO BID 10 days HPI Comments Details: Narayan is a patient male. He is a patient of Dr. Villasenor. He is seen for following urologic conditions - prostate cancer - radiation oncology [facility] Telemedicine Evaluation 15 min Consultation [employer] and [employer] [place] Video attempted 08/21 PSA <0.1 T 7 04/20 Prostate cancer follow-up - PSA <0.1, T 5, continue finasteride Labs 07/20 P 0.12, T , 09/19 GnRH, 01/21 <0.1 4 10/[address] Jade Pompa 7800 Gy 39 fractions prostate and pelvis GnRH 02/17, 09/19 Had heart attack in January 2023 after GnRH injection Delayed marker seed placement Will proceed with seed placement Has recovered from single-vessel disease with stent placement Prostate Cancer - 02/17 - high volume, high risk - 1st GnRH 03/20 - EXBRT with radiation MAB during therapy completed 10/20 (bicalutamide, finasteride, GnRH) Dr Jade Pompa PSA at diagniosis 15 Histologic type: Prostatic acinar adenocarcinoma: [place] score: 3+4+7 (F); 4+3+7 (A, C, D, E,J and L); 4+4=8 (H, I, K); 4+5=9 (B) Total Cores 12 Positive Cores 12 % volume 910/1200 Periprostatic fat inv.: Not identified Seminal vesicle inv.: Not identified Perineural inv.: Present LVI: Not identified Clinical T2c - JAYANT bilateral prostate firmness Initial Staging - 02/17 bone scan degenerative changes consistent with arthritis. No evidence of metastatic prostate cancer - 03/20 CT scan pelvis no evidence of lymphadenopathy, no evidence of metastatic disease PFSH Medical History Vitamin D deficiency Colonoscopy refused Overweight (BMI 25.0-29.9) Pure hypercholesterolemia Hx of coronary angiogram Insomnia Coronary atherosclerosis Prostate cancer GERD (gastroesophageal reflux disease) Surgical History S/P drug eluting coronary stent placement (~03/25/23) Stented coronary artery History of right inguinal hernia repair (~04/2009) History of inguinal hernia repair History of tonsillectomy and adenoidectomy Family History Father No problems noted. Mother No problems noted. Social History Housing: Apartment Patient Tobacco Use Status: Former Tobacco user e-Cigarette/Vaping Use: Never Used service: No Current occupational status: employed Cognitive needs: No Hearing needs: No Vision needs: No Review of Systems Const All systems reviewed & are unremarkable except as noted in HPI and below Reports no additional complaints Resp Reports no additional complaints GI Reports no additional complaints Reports as per HPI Musc Reports no additional complaints Physical Exam Telemedicine evaluation Appropriate responses Regular breathing rate and rhythm HEENT Head: Yes normal to inspection Ears: hearing grossly normal bilaterally Eyes General: appearance normal, both eyes and all related structures Neck Neck: Yes normal visual inspection Chest Chest palpation & inspection: normal inspection of the chest Resp Effort & Inspection: normal respiratory effort and able to speak in complete sentences Telehealth Telehealth Telehealth Platform: Blue[employer] Location of provider rendering services: practice address Location of patient: address on file Patient Identification confirmed using: Name, : Yes Telehealth method: video Patient verbally consented to treatment: Yes Patient verbally consented to billing insurance company: Yes Patient informed of any privacy concerns related to visit: Yes Minutes spent on Phone/Video with Pt.: 15 Assessment & Plan Assessment & Plan (1) Prostate cancer: Comment: 02/17 high-grade, high-volume Code(s): C61 - Malignant neoplasm of prostate Category: Medical Plan Continue 4 month follow-up for next year Orders: Orders Prostate Specific Antigen 4 Months C61 - Malignant neoplasm of prostate Testosterone, Total 4 Months C61 - Malignant neoplasm of prostate Medications: Discontinued finasteride Discontinued Reason: Doctor's Order 5 mg PO DAILY 90 days 90 tabs 1RF C61 - Malignant neoplasm of prostate, N13.8 - Other obstructive and reflux uropathy, N40.1 - Benign prostatic hyperplasia with lower urinary tract symptoms, R33.9 - Retention of urine, unspecified Patient Instructions: Imaging studies, laboratory and physical exam results were discussed and reviewed in detail. No major barriers to patient understanding were identified. An opportunity to ask questions regarding the treatment plan was provided. All questions were answered. The patient expressed understanding and agreement with the above treatment plan. The patient is aware they should contact our office by phone for worsening of their current condition or the appearance of new urologic symptoms. Compliance is encouraged with any medications and followup testing that is ordered. It is a privilege to participate in the urologic care of your patient. If you have any questions or concerns regarding treatment for the above conditions, or other urologic issues, please do not hesitate to contact me. The office telephone contact is [phone]. This note is constructed using voice recognition software. While every effort has been made to ensure accuracy tube depatcher errors may have been included. Yours sincerely, Dr Ac Velasquez MD, [facility] - Urology Providers of Expert, Compassionate Care for the Genitourinary System Coding Level of Care Code Tele Est Pt Level 3 (29266) Diagnoses Prostate cancer C61
== END 2024-09-07 16:30 | disposition home or self-care (01) ==
LOC: HO.HUSH 16:04
PROVIDERS: PCP Internal Medicine; Visit Provider Urology
DX: C61 Malignant neoplasm of prostate (principal)
CPT/HCPCS: 99213

== ENCOUNTER → 2024-09-07 16:04 | Outpatient (BNVA) | payer MEDICARE, SELFPAY | PROVIDERS: PCP Internal Medicine; Visit Provider Urology ==

== ENCOUNTER 2024-09-22 13:21 | Outpatient (AMB) | payer MEDICARE, SELFPAY ==
[2024-09-22 13:59] VITALS: BP 102/64; PULSE 76; TEMP 36.8; O2SAT 97; BMI 26.3
--- NOTE | 2024-09-22 13:59 | AM.OFFWIN_ITS ---
Intake Vital Signs 3 09/22/24 13:59 Height 5 ft 6 in Weight 163 lb BMI 26.3 BP 102/64 Blood Pressure Location Rt brachial Position Sitting Pulse 76 Pulse Source Pulse Oximeter Temp 98.2 F Temp Source Oral Pulse Oximetry (%) 97 Oxygen Delivery Method Room Air Intake Visit Reasons: EP Burning eyes, headache, aches/pain Intake Note: Pt is here today c/o burning eyes, H/A and aches/pain Patient Tobacco Use Status: Former Tobacco user Allergies No Known Allergies Allergy (Mild, Verified 09/22/24 14:00) NKA HPI EP Burning eyes, headache, aches/pain 2 HPI0 Details Patient is a 74-year-old male who comes to the walk-in clinic complaining of redness itching and burning and scaling to the area around his eyes, watery discharge, and runny nose. He reports that symptoms started soon after an apparent upper respiratory infection. He has had resolution of the cough, and no fever or chills, sinus pressure or significant headache, nausea vomiting or diarrhea, vision changes or eye pain, or other significant associated symptoms. Reports that he started to use Xyzal allergy medication with limited relief, and eye lubricating drops. Just a few days ago he was trying to eliminate allergens and he stopped an [place] 3 capsule regimen that he had started just prior to symptoms also, along with turmeric. He reports that he is trying to lower his cholesterol. Per chart review he did have a similar case to this in the right eye about 4 years ago, however he does not know what he was allergic or sensitive to. He denies history of allergies otherwise, or sensitive skin. [facility] Medical History Vitamin D deficiency Colonoscopy refused Overweight (BMI 25.0-29.9) Pure hypercholesterolemia Hx of coronary angiogram Insomnia Coronary atherosclerosis Prostate cancer GERD (gastroesophageal reflux disease) Surgical History S/P drug eluting coronary stent placement (~03/25/23) Stented coronary artery History of right inguinal hernia repair (~04/2009) History of inguinal hernia repair History of tonsillectomy and adenoidectomy Family History Father No problems noted. Mother No problems noted. Social History Housing: Apartment Patient Tobacco Use Status: Former Tobacco user e-Cigarette/Vaping Use: Never Used service: No Current occupational status: employed Cognitive needs: No Hearing needs: No Vision needs: No Review of Systems Const All systems reviewed & are unremarkable except as noted in HPI and below Physical Exam Vital Signs: Last Vital Signs Temp 98.2 F 09/22/24 13:59 Pulse 76 09/22/24 13:59 BP 102/64 09/22/24 13:59 Pulse Ox 97 09/22/24 13:59 Oxygen Delivery Method Room Air 09/22/24 13:59 BMI result Body Mass Index 26.3 HEENT Head: Yes normal to inspection General nose exam: Normal nasal mucous membranes and turbinates present (Erythematous, boggy bilaterally) and Nasal discharge present Eyes Eyes/upper lids images: 2 1. 2. Erythema, edema, flaking, and excoriation, upper eyelids worse than lower. No apparent conjunctival erythema edema. No injection. No foreign body noted. Assessment & Plan Assessment & Plan (1) Periorbital dermatitis: Code(s): L30.9 - Dermatitis, unspecified Plan: Patient has a history of this about 4 years ago, although he does not seem to know what caused it for him in the past. It did resolve with topical steroid use as well as allergy medication. We discussed that periorbital dermatitis and allergy symptoms in general is 1st treated with removal of the offending agents. We discussed gentle skin care and avoiding anything perfumed or new to the skin. I wrote him for a course of low potency steroid cream that he can use for 2 weeks. Then should do a steroid holiday of a week and only resume if he still has itching and significant scaling, for a maximum of a month. He should also consider follow-up at that point if he is not continuing to improve. He can also trial fluticasone for the rhinitis, and he should continue an allergy medication. He might need to be referred to an textile screen maker or laboratory sampler if symptoms persist or worsen. Medications: New 2 hydrocortisone 2.5% 1 appl topical TID PRN 28 grams 0RF skin irritation Discontinued 2 clotrimazole-betamethasone 1-0.05 % Apply thin coat 2 times per day Discontinued Reason: Patient Completed Course 1 appl topical BID 4 weeks 45 grams 0RF N48.1 - Balanitis Coding Level of Care Code Est Pt Level 3 (45798) Diagnoses Periorbital dermatitis L30.9
== END 2024-09-22 15:05 | disposition home or self-care (01) ==
PROVIDERS: PCP Internal Medicine; Visit Provider Physician Assistant Medical
DX: L30.9 Dermatitis, unspecified (principal)

== ENCOUNTER → 2024-09-22 13:21 | Outpatient (BNVA) | payer MEDICARE, SELFPAY | PROVIDERS: PCP Internal Medicine | DX: L30.9 Dermatitis, unspecified (principal) | CPT/HCPCS: 99212 ==

== ENCOUNTER 2024-12-01 07:27 | Outpatient (REF) | payer BC, SELFPAY ==
[2024-12-01 07:42] LABS: MANUAL DIFF FLAG NO
[2024-12-01 07:54] LABS: Basophils Absolute Auto 0.1 X10*3/uL (0.0-0.2); Basophils Percent Auto 0.9 % (0-2); Eosinophils Absolute Auto 0.2 X10*3/uL (0.0-0.4); Eosinophils Percent Auto 2.8 % (0-4); Hematocrit 44.7 % (42.0-52.0); Hemoglobin 14.9 g/dl (14.0-18.0); Imm Gran Abs Auto 0.03 X10*3/uL (0.00-0.03); Imm Gran Pct Auto 0.4 % (0.0-0.4); Lymphocytes Absolute Auto 1.1 X10*3/uL (1.2-4.9); Lymphocytes Percent Auto 16.2 % (20-40); Mean Corpuscular HGB Conc 33.3 g/dl (31.0-36.0); Mean Corpuscular Hemoglobin 31.4 pg (27.0-33.0); Mean Corpuscular Volume 94.1 fL (80.0-98.0); Mean Platelet Volume 10.7 fL (9.4-12.4); Monocytes Absolute Auto 0.7 X10*3/uL (0.1-1.2); Monocytes Percent Auto 10.1 % (2-11); Neutrophils Absolute Auto 4.8 x10*3/uL (2.0-8.3); Neutrophils Percent Auto 69.6 % (45-73); Platelet Count 303 X10*3/uL (160-400); Red Blood Count 4.75 X10*6/uL (4.60-5.80); Red Cell Distribution Width 12.8 % (11.0-16.0); White Blood Count 6.9 X10*3/uL (4.8-10.8)
[2024-12-01 07:56] LABS: Estimated Average Glucose 120 mg/dL; Hemoglobin A1c % 5.8 % (<6.0); Total Hemoglobin (HGBA1C) 3875.7419 umol/L
[2024-12-01 08:21] LABS: Alanine Aminotransferase 62 U/L (0-40); Albumin Level 4.2 g/dL (3.5-5.0); Alkaline Phosphatase 94 U/L (39-117); Anion Gap 12 (12-20); Aspartate Amino Transferase 47 U/L (5-37); Bilirubin Total 0.6 mg/dL (0.0-1.0); Blood Urea Nitrogen 14 mg/dL (9-16); Calcium 9.6 mg/dL (8.4-10.2); Carbon Dioxide 25 mmol/L (22-29); Chloride 111 mmol/L (96-108); Cholesterol 156 mg/dL (<200); Estimated Glomerular Filt Rate > 60; Glucose Fasting 114 mg/dL (60-99); HDL Cholesterol 55 mg/dL (>40); LDL Cholesterol Calculated 79 mg/dL (<100); Potassium 4.3 mmol/L (3.3-5.1); Sodium 144 mmol/L (135-145); Total Protein 6.7 g/dL (6.5-8.0); Triglycerides 111 mg/dL (<150)
[2024-12-01 08:27] LABS: Appearance Urine Clear; Color Urine Yellow; Glucose Urine UA Negative (Negative); Leukocyte Esterase Urine Negative (Negative); Nitrite Urine Negative (Negative); UMIC TRIGGER UACC YES; Urine Blood Small (1+) (Negative); Urine Ketones Negative (Negative); Urine Protein Negative (Neg-Trace)
[2024-12-01 08:32] LABS: Bacteria Urine None Seen (None Seen); Hyaline Casts Urine 0-2 /LPF (0-2); Squamous Epithelial Cell Urine 0-2 /HPF (0-2); WBC Urine 0-5 /HPF (0-5)
[2024-12-01 08:36] LABS: Vitamin D 25-OH Total 27.1 ng/mL (>30)
== END 2024-12-01 07:28 | disposition home or self-care (01) ==
LOC: HO.LAB 07:27
PROVIDERS: PCP Internal Medicine; Visit Provider Internal Medicine
DX: D64.9 Anemia, unspecified (principal); E55.9 Vitamin D deficiency, unspecified; E78.00 Pure hypercholesterolemia, unspecified; R73.01 Impaired fasting glucose
CPT/HCPCS: 36415; 80053; 80061; 81001; 82306; 83036; 85025

== ENCOUNTER 2024-12-19 14:21 | Outpatient (AMB) | payer BC, SELFPAY ==
--- NOTE | 2024-12-19 14:35 | MHC.OFFVIS ---
Vital Signs 12/19/24 14:36 Height 5 ft 6 in Weight 165 lb 5.547 oz BMI 26.7 BP 108/58 L Blood Pressure Location Lt brachial Position Sitting Pulse 70 Pulse Source Pulse Oximeter Intake Visit Reasons: 6m follow up Allergies No Known Allergies Allergy (Mild, Verified 09/22/24 14:00) NKA Medication List - Last Reconciled 12/19/24 by Patel Ledesma MD aspirin 81 mg PO DAILY 90 days atorvastatin 80 mg PO BEDTIME 90 days cholecalciferol (vitamin D3) 50 mcg PO DAILY 90 days hydrocortisone 2.5% 1 appl topical TID PRN nystatin 1 appl topical TID sucralfate TAKE 1 TABLET BY MOUTH TWICE A DAY valacyclovir 1,000 mg PO BID 10 days HPI Comments Details: Narayan returns for follow-up regarding coronary disease. In 02/2023, treated for NSTEMI. Underwent cardiac catheterization and stenting of the OM1. Overall, he states that he feels quite good. 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 He was complaining of some tiredness in the past and beta-blockers were stopped. Now he states that symptom is completely resolved. [facility] Medical History Vitamin D deficiency Colonoscopy refused Overweight (BMI 25.0-29.9) Pure hypercholesterolemia Hx of coronary angiogram Insomnia Coronary atherosclerosis Prostate cancer GERD (gastroesophageal reflux disease) Surgical History S/P drug eluting coronary stent placement (~03/25/23) Stented coronary artery History of right inguinal hernia repair (~04/2009) History of inguinal hernia repair History of tonsillectomy and adenoidectomy Family History Father No problems noted. Mother No problems noted. Social History Housing: Apartment Patient Tobacco Use Status: Former Tobacco user e-Cigarette/Vaping Use: Never Used service: No Current occupational status: employed Cognitive needs: No Hearing needs: No Vision needs: No Review of Systems Const Denies weakness ENT Denies dizziness Card Denies chest pain, Denies chest pain with activity, Denies syncope, Denies rapid heart rate, Denies pedal edema, Denies edema, Denies leg edema, Denies lightheadedness, Denies palpitations, Denies dyspnea, Denies dyspnea on exertion and Denies orthopnea Resp Denies cough, Denies dyspnea and Denies dyspnea on exertion GI Denies hematochezia and Denies change in stool character Musc Denies abnormal gait, Denies muscle cramps, Denies muscle weakness, Denies numbness, Denies radiating pain into limb and Denies tingling Neuro Denies abnormal gait, Denies dizziness, Denies syncope, Denies numbness, Denies tingling and Denies weakness Endo Denies palpitations Physical Exam Vital Signs: Last Vital Signs Pulse 70 12/19/24 14:36 BP 108/58 L 12/19/24 14:36 BMI result Body Mass Index 26.7 Const General: comfortable and no acute distress Orientation/consciousness: patient oriented x3 HEENT Other: Unremarkable Head: Yes normal to inspection Neck Neck: Yes normal visual inspection Chest Chest palpation & inspection: normal inspection of the chest Resp Auscultation: clear to auscultation bilaterally Cardio Palpation: normal PMI Heart sounds: S1 normal heart sound present, S2 normal heart sound present, no gallops, no murmurs and no rubs GI Palpation (GI): Soft to palpation Back/Spine/Pelvis Other: unremarkable Skin General skin exam: no rashes or lesions noted Neuro General: patient oriented x3 Extrem General: Yes normal to inspection Psych Mental Status: mental status grossly normal Assessment & Plan Assessment & Plan (1) Coronary atherosclerosis: Code(s): I25.10 - Atherosclerotic heart disease of [place] coronary artery without angina pectoris Category: Medical Qualifiers: Associated angina: without angina Coronary Disease-Associated Artery/Lesion type: [place] artery [place] vs. transplanted heart: [place] heart Qualified Code(s): I25.10 - Atherosclerotic heart disease of [place] coronary artery without angina pectoris (2) Stented coronary artery: Code(s): Z95.5 - Presence of coronary angioplasty implant and graft Category: Surgical Plan Cardiac studies reviewed. Cardiac catheterization 02/2023- Culprit lesion was thrombotic occlusion of proximal OM 1, status post PCI. Otherwise, proximal RCA with 40% stenosis. Mid LAD 40% stenosis. Mid D2 50% stenosis. Echocardiogram with LVEF of 40-50%. Severe hypokinesis in the basal to mid inferolateral/anterolateral saunders. Mild aortic valve thickening but no significant stenosis or regurgitation. Severe posterior mitral annular calcification. In the most recent echocardiogram preserved LVEF of 55-60% and no wall motion abnormalities. Overall, seems improved. Clinically, he feels quite good. Hence treat for stable coronary disease. Continue aspirin. Because of tiredness, off beta-blockers. With regard to lipids, LDL is still less than ideal. We can add Zetia. Check lipids/LFTs in a few months. He does admit to drinking alcohol frequently and advised to cut back. That could also explain the slightly abnormal LFTs. Total time spent including review of data, counseling, documentation, coordination of care-31 minutes. Orders: Orders Lipid Panel 3 Months E78.5 - Hyperlipidemia, unspecified Liver Panel 3 Months I25.10 - Atherosclerotic heart disease of [place] coronary artery without angina pectoris Medications: New ezetimibe (Zetia) 10 mg PO DAILY 90 tabs 3RF Coding Level of Care Code Est Pt Level 4 (71708) Diagnoses Atherosclerosis of [place] coronary artery of [place] heart without angina pectoris I25.10 Associated angina: without angina Coronary Disease-Associated Artery/Lesion type: [place] artery [place] vs. transplanted heart: [place] heart Stented coronary artery Z95.5
[2024-12-19 14:36] VITALS: BP 108/58; PULSE 70; BMI 26.7
--- OUTSIDE RECORDS SUMMARY | 2024-12-19 16:42 | XMS_ITS | Clinical Summary ---
Author Organization [facility] Address [phone] [facility] [place] [address] Care Team Providers Care Ripening Room Attendant Name Role Phone Nikos Villasenor MD Primary Care Provider [phone] Allergies No known active allergies Medications Medication Sig Dispensed Refills Start Date End Date Status cimetidine (TAGAMET) 200 MG tablet Take 200 mg by mouth 4 (four) times a day. Active Active Problems Problem Noted Date Diagnosed Date GERD (gastroesophageal reflux disease) 9 Immunizations Name Administration Dates Next Due Tdap 11/03/2021 Social History Tobacco Use Types Packs/Day Years Used Date Smoking Tobacco: Unknown Smokeless Tobacco: Never Alcohol Use Standard Drinks/Week Comments Yes 0 (1 standard drink = 0.6 oz pur e alcohol) Education Answer Date Recorded Are you interested in more education? Not on nikhil e 03/24/2023 Are you concerned about learning? Not on file 03/24/2023 No 03/24/2023 No 03/24/2023 Digital Access Answer Date Recorded No 04/23/2023 No 04/23/2023 No 04/23/2023 Reliable internet access at home? Not on file 04/23/2023 Device with a working camera? Not on file Sex and Gender Information Value Date Recorded Sex Assigned at Male 11/03/2021 10:37 AM EST Gender Identity Male 11/03/2021 10:37 AM EST Sexual Orientation Straight 11/03/2021 10 :37 AM EST Last Filed Vital Signs Vital Sign Reading Time Taken Comments Blood Pressure 113/89 03/24/2023 2:02 PM EDT Pulse 68 03/24/2023 3:00 PM EDT Temperature 36.6 ??C (97.9 ??F) 03/24/2023 8:06 AM ED T Respiratory Rate 14 03/24/2023 3:00 PM EDT Oxygen Saturation 100% 03/24/2023 3:00 PM EDT Inhaled Oxygen Concentration - - Weight 74.8 kg (165 lb) 03/24/2023 8:06 AM EDT Height 167.6 cm (5' 6 ) 03/24/2023 8:06 AM EDT Body Mass Index 26.63 03/24/2023 8:06 AM EDT Plan of Treatment Health Maintenance Due Date Last Done Comments LIPID PANEL 1949 DEPRESSION SCREENING 1961 SMOKING Hx and SMOKELESS TOBACCO SCREENING 1962 HEPATITIS B SCREENING 1967 HEPATITIS C SCREENING 1967 COLOGUARD 1994 COLONOSCOPY 1994 COLORECTAL CANCER SCREENING 1994 FIT TEST 1994 FOBT 1994 SIGMOIDOSCOPY 1994 VIRTUAL COLONOSCOPY 1994 PNEUMOCOCCAL VACCINES (50+ years) (1 of 1 - PCV) 1999 ZOSTER VACCINES (1 of 2) 1999 RSV VACCINE (1 - 1-dose 75+ series) 02/21/2024 INFLUENZA VACCINE (#1) 2024 12/13/2019 COVID-19 VACCINE (3 - 2023-2 5 season) 2024 08/04/2021, 06/22/2021 Adult Td,Tdap Booster 11/03/2031 11/03/2021 HEPATITIS A VACCINES Aged Out No long er eligible based on patient's age to complete this topic HEPATITIS B VACCINES Aged Out No long er eligible based on patient's age to complete this topic HIB VACCINES Aged Out No longer eligi ble based on patient's age to complete this topic MENINGOCOCCAL VACCINES (ACWY) Aged Out No longer eligible based on patient's age to complete this topic Medical Devices Not on file Insurance Payer Benefit Plan / Group Subscriber ID Effective Dates Phone Address [facility] [id number]-Present [address] [address] O Ellis, Narayan Personal/Family Self [address] [place] [address] Ellis, Narayan Personal/Family Self [address] [place] [address] Ellis, Narayan Personal/Family Self [address] [place] [address] Narayan [employer] Comp Self [address] [place] [address] Care Teams Ripening Room Attendant Relationship Specialty Start Date End Date Nikos Villasenor MD [address] [place] [address] [address] [place] [address] PCP - General Internal Medicine 09/06/19 Additional Source Comments The information contained in this document represents components of the legal health record. It is not the complete legal health record.[facility]
== END 2024-12-19 14:58 | disposition home or self-care (01) ==
PROVIDERS: PCP Internal Medicine; Visit Provider Internal Medicine
DX: I25.10 Atherosclerotic heart disease of native coronary artery without angina pectoris (principal); Z95.5 Presence of coronary angioplasty implant and graft
CPT/HCPCS: 99214

== ENCOUNTER → 2024-12-19 14:21 | Outpatient (BNVA) | payer MEDICARE, SELFPAY | PROVIDERS: PCP Internal Medicine; Visit Provider Internal Medicine ==

== ENCOUNTER 2024-12-19 15:06 | Outpatient (REF) | payer BC, SELFPAY ==
--- OUTSIDE RECORDS SUMMARY | 2024-12-19 17:35 | XMS_ITS | Clinical Summary ---
Author Organization [facility] Address [phone] [facility] [place] [address] Care Team Providers Care Securities Vault Supervisor Name Role Phone Nikos Villasenor MD Primary Care Provider [phone] Allergies No known active allergies Medications Medication [...] Group Subscriber ID Effective Dates Phone Address [facility] [id number] [facility]Present [address] [address] O Ellis, Narayan Personal/Family Self [address] [place] [address] Ellis, Narayan Personal/Family Self [address] [place] [address] Ellis, Narayan Personal/Family Self [address] [place] [address] Narayan [employer] Workers Comp Self [address] [place] [address] Care Teams Securities Vault Supervisor Relationship Specialty Start Date End Date Nikos Villasenor MD [address] [place] [address] [address] [place] [address] PCP - General Internal Medicine 09/06/19 Additional Source Comments The information contained in this document represents components of the legal health record. It is not the complete legal health record.[facility]
[2024-12-19 17:52] LABS: Prostate Specific Antigen < 0.10 ng/mL (<0.05-4.0)
[2024-12-23 08:14] LABS: Testosterone, Total 69 ng/dL (250-1100)
== END 2024-12-19 15:07 | disposition home or self-care (01) ==
LOC: HO.LAB 15:06
PROVIDERS: PCP Internal Medicine; Visit Provider Urology
DX: C61 Malignant neoplasm of prostate (principal); Z12.5 Encounter for screening for malignant neoplasm of prostate
CPT/HCPCS: 36415; 84153; 84403

== ENCOUNTER 2025-01-08 15:32 | Outpatient (AMB) | payer BC, SELFPAY ==
--- NOTE | 2025-01-08 15:35 | MHC.OFFVIS ---
Intake Visit Reasons: 4M PSA/Testo(set) Intake Note: Patient is present for 4M PSA/TESTO Urology Medication:NONE Antibiotic Allergy:NONE Blood Thinner:ASPIRIN Entry Level Chemist Required: No Allergies No Known Allergies Allergy (Mild, Verified 01/08/25 15:36) NKA HPI Comments Details: Narayan is a patient male. He is a patient of Dr. Villasenor. He is seen for following urologic conditions - prostate cancer - radiation oncology [facility] Interval follow-up 12/22 <0.1 T 69 Occasional rectal blood but not persistent Continue surveillance Labs 07/20 P 0.12, T 26, 09/19 GnRH, 01/21 <0.1 4, 04/20 PSA <0.1, T , 08/21 PSA <0.1 T 7 10/[address] Jade Pompa 7800 Gy 39 fractions prostate and pelvis GnRH 02/17, 09/19 Had heart attack in January 2023 after GnRH injection Prostate Cancer - 02/17 - high volume, high risk - 1st GnRH 03/20 - EXBRT with radiation MAB during therapy completed 10/20 (bicalutamide, finasteride, GnRH) Dr Jade Pompa PSA at diagniosis 15 Histologic type: Prostatic acinar adenocarcinoma: Giuliana score: 3+4+7 (F); 4+3+7 (A, C, D, E,J and L); 4+4=8 (H, I, K); 4+5=9 (B) Total Cores 12 Positive Cores 12 % volume 910/1200 Periprostatic fat inv.: Not identified Seminal vesicle inv.: Not identified Perineural inv.: Present LVI: Not identified Clinical T2c - JAYANT bilateral prostate firmness Initial Staging - 02/17 bone scan degenerative changes consistent with arthritis. No evidence of metastatic prostate cancer - 03/20 CT scan pelvis no evidence of lymphadenopathy, no evidence of metastatic disease PFSH Medical History Vitamin D deficiency Colonoscopy refused Overweight (BMI 25.0-29.9) Pure hypercholesterolemia Hx of coronary angiogram Insomnia Coronary atherosclerosis Prostate cancer GERD (gastroesophageal reflux disease) Surgical History S/P drug eluting coronary stent placement (~03/25/23) Stented coronary artery History of right inguinal hernia repair (~04/2009) History of inguinal hernia repair History of tonsillectomy and adenoidectomy Family History Father No problems noted. Mother No problems noted. Social History Housing: Apartment Patient Tobacco Use Status: Former Tobacco user e-Cigarette/Vaping Use: Never Used service: No Current occupational status: employed Cognitive needs: No Hearing needs: No Vision needs: No Review of Systems Const Denies chills and Denies fever(s) Card Reports no additional complaints and Denies syncope Resp Denies cough GI Denies abdominal pain and Denies heartburn Reports as per HPI and Denies change in libido Neuro Denies syncope Psych Denies change in libido Endo Denies change in libido Physical Exam Const General: cooperative, healthy appearing, comfortable and no acute distress Orientation/consciousness: patient oriented x3 HEENT Face and sinus: Yes normal facial exam Mouth: moist mucous membranes Neck Neck: Yes normal visual inspection, Yes full ROM and Yes trachea midline Chest Chest palpation & inspection: normal inspection of the chest Resp Effort & Inspection: normal respiratory effort, able to speak in complete sentences and no respiratory distress GI Inspection: Yes normal to inspection Back/Spine/Pelvis Cervical Spine: normal cervical lordosis Thoracic/Lumbar Spine: thoracic and lumbar spine normal to inspection Skin General skin exam: no rashes or lesions noted Neuro General: patient oriented x3, gait normal, tone normal and moves all extremities Extrem General: Yes normal to inspection and Yes capillary refill normal Assessment & Plan Assessment & Plan (1) Prostate cancer: Comment: 02/17 high-grade, high-volume Code(s): C61 - Malignant neoplasm of prostate Category: Medical Plan Continue lab check q.4 month Orders: Orders Prostate Specific Antigen 4 Months C61 - Malignant neoplasm of prostate Testosterone, Total 4 Months C61 - Malignant neoplasm of prostate Patient Instructions: This note is constructed using voice recognition software. While every effort has been made to ensure accuracy supervisor home energy consultant errors may have been included. Imaging studies, laboratory and physical exam results were discussed and reviewed in detail. No major barriers to patient understanding were identified. An opportunity to ask questions regarding the treatment plan was provided. All questions were answered. The patient expressed understanding and agreement with the above treatment plan. The patient is aware they should contact our office by phone for worsening of their current condition or the appearance of new urologic symptoms. Compliance is encouraged with any medications and followup testing that is ordered. It is a privilege to participate in the urologic care of your patient. If you have any questions or concerns regarding treatment for the above conditions, or other urologic issues, please do not hesitate to contact me. The office telephone contact is [phone]. Sincerely, Dr Ac Velasquez MD, [facility] - Urology Compassionate Specialist Care for the Genitourinary System Coding Level of Care Code Est Pt Level 3 (03507) Diagnoses Prostate cancer C61
== END 2025-01-08 16:12 | disposition home or self-care (01) ==
PROVIDERS: PCP Internal Medicine; Visit Provider Urology
DX: C61 Malignant neoplasm of prostate (principal)
CPT/HCPCS: 99213

== ENCOUNTER → 2025-01-08 15:32 | Outpatient (BNVA) | payer BC, SELFPAY | PROVIDERS: PCP Internal Medicine; Visit Provider Urology ==

== ENCOUNTER → 2025-01-28 08:12 | Outpatient (REF) | payer BC, SELFPAY ==
--- NOTE | 2025-01-28 08:15 | CA_ITS ---
Acquisition Time: 2025-01-28 08:19:09 Total Exercise Time: 00:05:55 Test Indications: CP Medications: SEE H&P Protocol: RANDY Max HR: 141 BPM 97% of Pred: 145 BPM Max BP: 170/90 mmHG Max Work Load: 6.2 METS Exercise Stress Test with exercise 5 mins 55 secs of Randy Protocol, held at Stage 1 with increased speed to 2.5mph, achieving 94% MPHR, with rerpots of mild SOB, no chest pain, with isolated PVCs, with normotensive response to exercise. Without EKG changes meeting criteria for ischemia. In recovery, pt feeling back to baseline. Test reviewed with Dr. Haque. Referred By: Patel Ledesma Electronically Signed By: Shahab Petersen
--- OUTSIDE RECORDS SUMMARY | 2025-01-28 08:23 | XMS_ITS | Clinical Summary ---
Author Organization [facility] Address [phone] [facility] [place] [address] Care Team Providers Care Patient Account Specialist Name Role Phone Nikos Villasenor MD Primary Care Provider [phone] Allergies No known active allergies Medications Medication [...] Group Subscriber ID Effective Dates Phone Address [facility] [id number] [facility]-Present [address] [address] O Care Teams Patient Account Specialist Relationship Specialty Start Date End Date Nikos Villasenor MD [address] [place] [address] [address] [place] [address] PCP - General Internal Medicine 09/06/19 Additional Source Comments The information contained in this document represents components of the legal health record. It is not the complete legal health record.[facility]
== END ==
LOC: HO.CARD 08:12
PROVIDERS: PCP Internal Medicine; Visit Provider Internal Medicine
DX: R07.2 Precordial pain (principal)
CPT/HCPCS: 93017

== ENCOUNTER → 2025-01-28 08:15 | Outpatient (BNV) | payer BC, SELFPAY | PROVIDERS: PCP Internal Medicine | DX: R06.02 Shortness of breath (principal); I49.3 Ventricular premature depolarization | CPT/HCPCS: 93016; 93018 ==

== ENCOUNTER 2025-01-29 16:24 | Outpatient (AMB) | payer MEDICARE, SELFPAY ==
[2025-01-29 16:27] VITALS: BP 122/84; PULSE 85; O2SAT 97; BMI 26.9
--- NOTE | 2025-01-29 16:27 | MHC.PC.OV ---
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 Accompanied by: Self / Same As Patient Allergies No Known Allergies Allergy (Mild, Verified 01/29/25 17:00) NKA Medication List - Last Reconciled 01/29/25 by Nikos Villasenor MD aspirin 81 mg PO DAILY 90 days atorvastatin 80 mg PO BEDTIME 90 days cholecalciferol (vitamin D3) 50 mcg PO DAILY 90 days ezetimibe (Zetia) 10 mg PO DAILY hydrocortisone 2.5% 1 appl topical TID PRN nystatin 1 appl topical TID sucralfate TAKE 1 TABLET BY MOUTH TWICE A DAY valacyclovir 1,000 mg PO BID 10 days Tobacco use date assessed: 01/29/25 Fall risk assessment: No Falls in past year Last assessed Fall Risk: 01/29/25 Dental Screening Dental Screen Date: 01/29/25 Did you have a dental visit in the last 12 months?: Yes Did you have a dental problem in the last 6 months where you did not have access to dental care?: No Was dental information given to patient?: Patient has dentist HPI 4 month fu HPI Details Patient comes in today for his follow up visit States that he is currently taking omeprazole again for recurrent heartburns Relates that he ate something for dinner yesterday and woke up this morning with some symptoms of heartburn and stomach bloating and discomfort but his symptoms now appear to be subsiding Relates that he has had some issues with bowel movements lately, with frequent loose stools at times where in he has had to take some Imodium to slow down his bowel movement just so he can get to work He also has been having some problems with urination lately - relates (+) irritation in some on and off dysuria but was advised by Urology that this is normal considering his history of prostate cancer and radiation treatment He denies any dizziness or headaches Denies any exertional chest pains or increased shortness of breath States that he just had his stress testing done yesterday - was advised that he will need cardiology clearance 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 with his history of CAD No nausea/vomiting, no abdominal pain He had his follow-up labs done a couple of months ago - to discuss his results [facility] Medical History Vitamin D deficiency Colonoscopy refused Overweight (BMI 25.0-29.9) Pure hypercholesterolemia Hx of coronary angiogram Insomnia Coronary atherosclerosis Prostate cancer GERD (gastroesophageal reflux disease) Surgical History S/P drug eluting coronary stent placement (~03/25/23) Stented coronary artery History of right inguinal hernia repair (~04/2009) History of inguinal hernia repair History of tonsillectomy and adenoidectomy Family History Father No problems noted. Mother No problems noted. Social History Housing: Apartment Patient Tobacco Use Status: Former Tobacco user e-Cigarette/Vaping Use: Never Used service: No Current occupational status: employed Cognitive needs: No Hearing needs: No Vision needs: No Questionnaire PHQ-9 Over the last 2 weeks, how often have you been bothered by any of the following problems? 1. Little interest or pleasure in doing things: not at all 2. Feeling down, depressed, or hopeless: not at all 3. Trouble falling or staying asleep, or sleeping too much: not at all 4. Feeling tired or having little energy: not at all 5. Poor appetite or overeating: not at all 6. Feeling bad about yourself - or that you are a failure or have let yourself or your family down: not at all 7. Trouble concentrating on things, such as reading the newspaper or watching television: not at all 8. Moving or speaking so slowly that other people could have noticed. Or the opposite - being so fidgety or restless that you have been moving around a lot more than usual: not at all 9. Thoughts that you would be better off or of hurting yourself in some way: not at all Total score: 0 Depression Screening Interpretation: Negative Depression Screening Done: Yes 94484 - PHQ-9 Billing: Yes Source: Developed by Drs. Amadou LKatharine Hay, Walter Gupta and colleagues, with an educational aimee from [employer]. Thrive Questionnaire Date Thrive assessed: 01/29/25 I am a: Patient What is your living situation today?: I have a steady place to live Within the past 12 months, did the food you bought not last and you didn't have the money to get more?: Never true Within the past 12 months, did you worry whether your food would run out before you got money to buy more?: Never true Do you have trouble paying for medicines?: No Do you have trouble getting transportation to medical appointments?: No Do you have trouble paying your heating and electricity bill?: No Do you have trouble taking care of your child, family member or friend?: No Do you have trouble with day-to-day activities such as bathing, preparing meals, shopping, managing finances, etc.?: No Are you currently unemployed and looking for a job?: No Are you interested in more education?: No Please select the resources that you would like help with: None Currently or been in a relationship where the following occur: No concerns reported THRIVE Score: 0 AUDIT C Alcohol Use Questionnaire (AUDIT-C) 1. How often do you have a drink containing alcohol?: 4 or more times a week 2. How many drinks containing alcohol do you have on a typical day when you are drinking?: 1 or 2 3. How often do you have six or more drinks on one occasion?: Never Total Score: 4 Score Reviewed/Action Taken: Yes RAUL-7 AMB Questionnaire RAUL-7 Date RAUL - 7 assessed: 01/29/25 Feeling nervous, anxious, or on edge: 0 = Not at all Not being able to stop or control worryin = Not at all Worrying too much about different things: 0 = Not at all Trouble relaxin = Not at all Being so restless that it is hard to sit still: 0 = Not at all Becoming easily annoyed or irritable: 0 = Not at all Feeling afraid as if something awful might happen: 0 = Not at all Total RAUL-7 score (0-4 normal; 5-9 mild; 10-14 moderate; 15-21 severe): 0 Source: Developed by Katharine Paz Kurt Kroenke and colleagues, with an educational aimee from [employer]. RAUL-7 Assessment Billing RAUL-7 Assessment Tool: RAUL-7 Assessment 90362 Review of Systems Const Denies chills, Reports difficulty sleeping (chronic), Reports fatigue, Denies fever(s) and Denies headache(s) ENT Denies dysphagia, Denies dizziness, Denies otalgia, Denies headache(s), Denies neck pain, Denies odynophagia and Denies sore throat Card Denies chest pain, Denies palpitations and Denies dyspnea Resp Denies chest congestion, Denies cough and Denies dyspnea GI Denies abdominal pain, Reports hematochezia (occasionally), Denies dysphagia, Reports heartburn, Reports diarrhea (on and off), Reports loose stools (on and off), Denies nausea, Denies odynophagia and Denies vomiting Reports hematuria (occasionally), Denies dysuria, Denies nocturia, Denies urinary frequency and Reports urinary urgency (occasionally) Musc Denies back pain and Denies neck pain Skin/Breast Reports lesions ((+) scattered scaling lesions) and Denies rash Neuro Denies dizziness and Denies headache(s) Psych Denies depression Endo Reports fatigue and Denies palpitations Physical exam (Primary Care) Vital Signs: Last Vital Signs Pulse 85 01/29/25 16:27 BP 122/84 01/29/25 16:27 Pulse Ox 97 01/29/25 16:27 Oxygen Delivery Method Room Air 01/29/25 16:27 BMI result Body Mass Index 26.9 Tobacco/Smoking Status: Tobacco use Status Tobacco use date assessed 01/29/25 01/29/25 16:30 Patient Tobacco Use Status Former Tobacco user 01/29/25 16:30 e-Cigarette/Vaping Use Never Used 01/29/25 16:30 PHQ-9: PHQ-9 Score PHQ-9: Total score 0 01/29/25 17:07 Depression Screening Interpretation: Negative Thrive Assessment: Date of Thrive Assessment Date Thrive assessed 01/29/25 01/29/25 16:30 Currently or been in a relationship where the following occur: No concerns reported Const General: no acute distress and alert HENMT Ears: TM's normal bilaterally and EAC's normal Throat: Yes posterior oropharynx normal and Yes tonsils normal (no TP congestion) Neck Neck: Yes supple and No lymphadenopathy Thyroid: Thyroid normal Resp Auscultation: clear to auscultation bilaterally, no rales and no wheezes Cardio Rate: regular rate Rhythm: regular rhythm Heart sounds: no murmurs GI Palpation (GI): Soft to palpation and nontender Auscultation: normal bowel sounds General: Yes no CVA tenderness Back/Spine/Pelvis Back: no CVA tenderness Skin Lesions: lesion noted (scattered scaling skin lesions) Rashes: no rashes Extrem General: Yes no clubbing, cyanosis or edema Results Reviewed Results Reviewed: Laboratory Tests 12/01/24 12/01/24 12/19/24 07:37 07:41 15:28 WBC 6.9 Hgb 14.9 Hct 44.7 Plt Count 303 Sodium 144 Potassium 4.3 Creatinine 0.74 Estimated GFR > 60 Fasting Glucose 114 H Hemoglobin A1c % 5.8 Calcium 9.6 AST 47 H ALT 62 H Triglycerides 111 Cholesterol 156 LDL Cholesterol, Calc 79 HDL Cholesterol 55 25-OH Vitamin D Total 27.1 L Total Testosterone 69 L Ur Specific Apollo 1.020 Urine Protein Negative Urine Glucose (UA) Negative Urine Blood Small (1+) H Urine Nitrite Negative Ur Leukocyte Esterase Negative Coding Level of Care Code Est Pt Level 4 (31841) Diagnoses Atherosclerosis of [place] coronary artery of [place] heart without angina pectoris I25.10 Coronary Disease-Associated Artery/Lesion type: [place] artery [place] vs. transplanted heart: [place] heart Associated angina: without angina Pure hypercholesterolemia E78.00 Prostatic adenocarcinoma C61 Hypotestosteronism E34.9 Gastroesophageal reflux disease without esophagitis K21.9 Esophagitis presence: without esophagitis Vitamin D deficiency E55.9 History of herpes genitalis Z86.19 Insomnia, unspecified type G47.00 Insomnia type: unspecified Overweight (BMI 25.0-29.9) E66.3 Colon cancer screening Z12.11 Additional Codes RAUL-7 Assessment Billing - RAUL-7 Assessment Tool: RAUL-7 Assessment 74589 ([id number]) PHQ-9 - 77864 - PHQ-9 Billing: Yes ([id number]) Assessment & Plan Assessment & Plan (1) Coronary atherosclerosis: Code(s): I25.10 - Atherosclerotic heart disease of [place] coronary artery without angina pectoris Category: Medical Qualifiers: Coronary Disease-Associated Artery/Lesion type: [place] artery [place] vs. transplanted heart: [place] heart Associated angina: without angina Qualified Code(s): I25.10 - Atherosclerotic heart disease of [place] coronary artery without angina pectoris Plan: S/P NSTEMI in 02/2023; S/P KERRY to proximal OM1 Continue Clopidogrel 75 mg QD, Aspirin 81 mg QD and Metoprolol 12.5 mg BID He is currently asymptomatic from a cardiac standpoint and just had a negative stress test done yesterday Follow up with cardiology as scheduled (2) Pure hypercholesterolemia: Code(s): E78.00 - Pure hypercholesterolemia, unspecified Category: Medical Plan: Results of his labs done a couple of months ago reviewed and discussed with patient Reinforced low-cholesterol diet Continue Atorvastatin 80 mg QD and Ezetimibe 10 mg QD Will recheck his labs and fasting lipids in 4 months for follow-up (3) Prostatic adenocarcinoma: Comment: high-grade, initial therapy external beam radiation with GnRH Code(s): C61 - Malignant neoplasm of prostate Category: Medical Plan: S/P initial Tx with external beam radiation to prostate and to the pelvic lymph nodes with Bicalutamide Continue Eligard 45 mg Q 6 months and Finasteride 5 mg QD Follow up with urology as scheduled for continuing management and surveillance (4) Hypotestosteronism: Code(s): E34.9 - Endocrine disorder, unspecified Category: Medical Plan: Have advised patient that his testosterone level is very low on his recent labs but this is expected because he is on Tx with GnRH for his prostate cancer Follow up with urology as scheduled regarding this (5) GERD (gastroesophageal reflux disease): Code(s): K21.9 - Gastro-esophageal reflux disease without esophagitis Category: Medical Qualifiers: Esophagitis presence: without esophagitis Qualified Code(s): K21.9 - Gastro-esophageal reflux disease without esophagitis Plan: Dietary restrictions reinforced Continue Famotidine 10 mg QD PRN Will refer him to GI for further evaluation and management and consideration for EGD (6) Vitamin D deficiency: Code(s): E55.9 - Vitamin D deficiency, unspecified Category: Medical Plan: Patient is instructed to start taking OTC Vitamin D3 2000 units QD (7) History of herpes genitalis: Code(s): Z86.19 - Personal history of other infectious and parasitic diseases Category: Medical Plan: Continue episodic Tx with Valtrex 1 gm BID x 10 days ONLY if he has acute flare ups of genital herpes (8) Insomnia: Code(s): G47.00 - Insomnia, unspecified Category: Medical Qualifiers: Insomnia type: unspecified Qualified Code(s): G47.00 - Insomnia, unspecified Plan: Sleep hygiene reinforced Continue Trazodone 50 mg Q HS PRN (9) Overweight (BMI 25.0-29.9): Code(s): E66.3 - Overweight Category: Medical Plan: Reinforced diet/exercise as tolerated/lose weight (10) Colon cancer screening: Code(s): Z12.11 - Encounter for screening for malignant neoplasm of colon Category: Medical Plan: Patient had a negative Cologuard testing done last January 2024 but with his recurrent bowel issues, will refer him to GI for further evaluation and management and consideration for colonoscopy Discussed that his GI symptoms are likely related to his radiation Tx for his prostate cancer a few years ago - radiation proctitis or colitis Plan Follow-up in 4 months Orders: Orders Comprehensive [place]. Panel Fast 4 Months E78.00 - Pure hypercholesterolemia, unspecified Lipid Panel 4 Months E78.00 - Pure hypercholesterolemia, unspecified TSH reflex Free T4 4 Months E78.00 - Pure hypercholesterolemia, unspecified Complete Blood Count Auto Diff 4 Months D64.9 - Anemia, unspecified UA CC w/rflx Micro + Cult 4 Months R30.0 - Dysuria Referrals Gastroenterology Referral K21.9 - Gastro-esophageal reflux disease without esophagitis, Z12.11 - Encounter for screening for malignant neoplasm of colon
--- OUTSIDE RECORDS SUMMARY | 2025-01-29 20:11 | XMS_ITS | Clinical Summary ---
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 Name Role Phone Nikos Villasenor MD Primary Care Provider [phone] Allergies No known active allergies Medications Medication [...] Group Subscriber ID Effective Dates Phone Address [facility] [id number] [facility]-Present [address] [id number] Personal/Family Self [address] [place] [id number] Narayan [place]ral Personal/Family Self [address] [place] [id number] Narayan Corral Personal/Family Self [address] [place] [address] Narayan Corral Personal/Family Self [address] [place] [phone] Narayan Corral Personal/Family Self [address] [place] [id number] [place], Narayan Personal/Family Self [address] [place] [id number] Narayan Corral Personal/Family Self [address] [place] [address] Narayan Corral Workers Comp Self [address] [place] [address] Care Teams 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 It is not the complete legal health record.[facility]
== END 2025-01-29 17:17 | disposition home or self-care (01) ==
PROVIDERS: PCP Internal Medicine; Visit Provider Internal Medicine
DX: I25.10 Atherosclerotic heart disease of native coronary artery without angina pectoris (principal); E78.00 Pure hypercholesterolemia, unspecified; C61 Malignant neoplasm of prostate; E34.9 Endocrine disorder, unspecified; K21.9 Gastro-esophageal reflux disease without esophagitis; E55.9 Vitamin D deficiency, unspecified; Z86.19 Personal history of other infectious and parasitic diseases; G47.00 Insomnia, unspecified; E66.3 Overweight; Z12.11 Encounter for screening for malignant neoplasm of colon

== ENCOUNTER → 2025-01-29 16:24 | Outpatient (BNVA) | payer MEDICARE, SELFPAY | PROVIDERS: PCP Internal Medicine; Visit Provider Internal Medicine | DX: I25.10 Atherosclerotic heart disease of native coronary artery without angina pectoris (principal); E78.00 Pure hypercholesterolemia, unspecified; C61 Malignant neoplasm of prostate; E34.9 Endocrine disorder, unspecified; K21.9 Gastro-esophageal reflux disease without esophagitis; E55.9 Vitamin D deficiency, unspecified; G47.00 Insomnia, unspecified; E66.3 Overweight; Z68.26 Body mass index [BMI] 26.0-26.9, adult; Z71.3 Dietary counseling and surveillance; Z86.19 Personal history of other infectious and parasitic diseases | CPT/HCPCS: 96127; 99212 ==

== ENCOUNTER 2025-04-02 08:26 | Outpatient (AMB) | payer MEDICARE, SELFPAY ==
--- NOTE | 2025-04-02 09:09 | AM.OFFWIN_ITS ---
Intake Vital Signs 04/02/25 09:10 Height 5 ft 6 in Weight 167 lb 8 oz BMI 27.0 BP 124/80 Blood Pressure Location Lt brachial Position Sitting Pulse 70 Pulse Source Pulse Oximeter Pulse Oximetry (%) 98 Oxygen Delivery Method Room Air Intake Visit Reasons: EP-rt side lower back pain Intake Note: Patient here for lower back pain that has been present for about 1 week. Patient Tobacco Use Status: Former Tobacco user Allergies No Known Allergies Allergy (Mild, Verified 04/02/25 09:11) NKA Medication List - Last Reconciled 04/02/25 by Jhony Mann MD aspirin 81 mg PO DAILY 90 days atorvastatin 80 mg PO BEDTIME 90 days cholecalciferol (vitamin D3) 50 mcg PO DAILY 90 days ezetimibe (Zetia) 10 mg PO DAILY hydrocortisone 2.5% 1 appl topical TID PRN nystatin 1 appl topical TID sucralfate TAKE 1 TABLET BY MOUTH TWICE A DAY valacyclovir 1,000 mg PO BID 10 days Do you need a note to return to daycare/school/sports/work: Yes HPI EP-rt side lower back pain HPI Details History - The patient is a 75-year-old male pres enting with soreness in the back. - The back soreness began approximately one week ago after performing physical labor on his property, notably lifting heavy objects. - Patient has a history of chronic low b ack pain persisting for several years. 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 - Pain is localized to the right side of the back, above the belt line, and is i ntensified when bending or lifting. - There is no radiation of pain to the l egs; it remains localized in the back. - Axvs-fql-hgxzfik medication Aleve (nap roxen) was taken once in the morning but offered limited relief. Problem List - Chronic Low Back Pain - Musculoskeletal Strain Patient Instructions - Patient is advised to take prescribed muscle relaxer for spasms only at night due to its sedative effects. - A stronger pain medication than Aleve has been prescribed; avoid taking Aleve or other pain medications alongside the new medication. - Medications should be taken with food. - Rest and avoid heavy lifting for the r emainder of the week; - Consistently wear a back support belt during work-related activities and tasks involving lifting. - Monitor symptoms and return if the akua n worsens or does not improve with treatment. Review of Systems - General: No fever no chills - Neurological: No headaches no dizziness - Ear nose throat: No sore throat no hearing difficulty no ear pain - Cardiovascular: No syncope, no chest pain, no palpitations - Gastrointestinal: No nausea vomiting or diarrhea Physical Exam General: No acute distress HEENT: No acute findings Neck: Supple Respiratory system: Able to talk in full sentences, no audible wheeze Gastrointestinal: No pain Back: Paraspinal pain lumbar and lower thoracic, spine nontender to percussion, range of motion intact, straight leg negative Extremities: Right side of knee and back is sore [employer]: Alert awake oriented x3 motor sensory intact Skin: Normal turgor [facility] Medical History Vitamin D deficiency Colonoscopy refused Overweight (BMI 25.0-29.9) Pure hypercholesterolemia Hx of coronary angiogram Insomnia Coronary atherosclerosis Prostate cancer GERD (gastroesophageal reflux disease) Surgical History S/P drug eluting coronary stent placement (~03/25/23) Stented coronary artery History of right inguinal hernia repair (~04/2009) History of inguinal hernia repair History of tonsillectomy and adenoidectomy Family History Father No problems noted. Mother No problems noted. Social History Housing: Apartment Patient Tobacco Use Status: Former Tobacco user e-Cigarette/Vaping Use: Never Used service: No Current occupational status: employed Cognitive needs: No Hearing needs: No Vision needs: No Physical Exam Vital Signs: Last Vital Signs Pulse 70 04/02/25 09:10 BP 124/80 04/02/25 09:10 Pulse Ox 98 04/02/25 09:10 Oxygen Delivery Method Room Air 04/02/25 09:10 BMI result Body Mass Index 27.0 Assessment & Plan Assessment & Plan (1) Acute low back pain: Code(s): M54.50 - Low back pain, unspecified Qualifiers: Back pain laterality: bilateral Sciatica presence: without sciatica Qualified Code(s): M54.50 - Low back pain, unspecified (2) Muscle spasm: Code(s): M62.838 - Other muscle spasm Plan History - The patient is a 75-year-old male presenting with soreness in the back. - The back soreness began approximately one week ago after performing physical labor on his property, notably lifting heavy objects. - Patient has a history of chronic low back pain persisting for several years. 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 - Pain is localized to the right side of the back, above the belt line, and is intensified when bending or lifting. - There is no radiation of pain to the legs; it remains localized in the back. - Dpaw-ryz-nqkjetp medication Aleve (naproxen) was taken once in the morning but offered limited relief. Problem List - Chronic Low Back Pain - Musculoskeletal Strain Patient Instructions - Patient is advised to take prescribed muscle relaxer for spasms only at night due to its sedative effects. - A stronger pain medication than Aleve has been prescribed; avoid taking Aleve or other pain medications alongside the new medication. - Medications should be taken with food. - Rest and avoid heavy lifting for the remainder of the week; - Consistently wear a back support belt during work-related activities and tasks involving lifting. - Monitor symptoms and return if the pain worsens or does not improve with treatment. Medications: New cyclobenzaprine 10 mg PO BEDTIME 10 tabs 0RF diclofenac sodium 75 mg PO BID 10 days 20 tabs 0RF pain Coding Level of Care Code Est Pt Level 3 (69478) Diagnoses Acute bilateral low back pain without sciatica M54.50 Back pain laterality: bilateral Sciatica presence: without sciatica Muscle spasm M62.838
[2025-04-02 09:10] VITALS: BP 124/80; PULSE 70; O2SAT 98; BMI 27.0
== END 2025-04-02 09:29 | disposition home or self-care (01) ==
PROVIDERS: PCP Internal Medicine; Visit Provider Internal Medicine
DX: M54.50 Low back pain, unspecified (principal); M62.838 Other muscle spasm

== ENCOUNTER → 2025-04-02 08:26 | Outpatient (BNVA) | payer MEDICARE, SELFPAY | PROVIDERS: PCP Internal Medicine; Visit Provider Internal Medicine | DX: M54.50 Low back pain, unspecified (principal); M62.838 Other muscle spasm | CPT/HCPCS: 99212 ==

== ENCOUNTER 2025-04-25 15:27 | Outpatient (REF) | payer MEDICARE, SELFPAY ==
[2025-04-25 16:48] LABS: Prostate Specific Antigen < 0.10 ng/mL (<0.05-4.0)
[2025-04-28 16:58] LABS: Testosterone, Total 62 ng/dL (250-1100)
== END 2025-04-25 15:28 | disposition home or self-care (01) ==
LOC: HO.LAB 15:27
PROVIDERS: PCP Internal Medicine; Visit Provider Urology
DX: C61 Malignant neoplasm of prostate (principal); Z12.5 Encounter for screening for malignant neoplasm of prostate
CPT/HCPCS: 36415; 84153; 84403

== ENCOUNTER 2025-05-08 15:38 | Outpatient (AMB) | payer MEDICARE, SELFPAY ==
--- NOTE | 2025-05-08 15:39 | A.OFFVIS_ITS ---
Intake Visit Reasons: 4m/labs Intake Note: Patient is present for 4M/LABS Urology Medication:NONE Antibiotic Allergy:NONE Blood Thinner:ASPIRIN Patient Care Required: No Allergies No Known Allergies Allergy (Mild, Verified 05/08/25 15:39) NKA HPI Comments Details: Narayan is a patient male. He is a patient of Dr. Villasenor. He is seen for following urologic conditions - prostate cancer - radiation oncology [facility] Telemedicine Evaluation 15 min Consultation Doximity [place] Video Interval follow-up - PSA stable, T slight recovery Occasional rectal blood but not persistent Continue surveillance T slowly recovering Labs 07/20 P 0.12, T 26, 09/19 GnRH, 01/21 <0.1 , 04/20 PSA <0.1, T 5, 08/21 PSA <0.1 T , 04/21 <0.1 T 62 10/[address] Jade Pompa 7800 Gy 39 fractions prostate and pelvis GnRH 02/17, 09/19 Had heart attack in January 2023 after GnRH injection Prostate Cancer - 02/17 - high volume, high risk - 1st GnRH 03/20 - EXBRT with radiation MAB during therapy completed 10/20 (bicalutamide, finasteride, GnRH) Dr Jade Pompa PSA at diagniosis 15 Histologic type: Prostatic acinar adenocarcinoma: Giuliana score: 3+4+7 (F); 4+3+7 (A, C, D, E,J and L); 4+4=8 (H, I, K); 4+5=9 (B) Total Cores 12 Positive Cores 12 % volume 910/1200 Periprostatic fat inv.: Not identified Seminal vesicle inv.: Not identified Perineural inv.: Present LVI: Not identified Clinical T2c - JAYANT bilateral prostate firmness Initial Staging - 02/17 bone scan degenerative changes consistent with arthritis. No evidence of metastatic prostate cancer - 03/20 CT scan pelvis no evidence of lymphadenopathy, no evidence of metastatic disease PFSH Medical History Vitamin D deficiency Colonoscopy refused Overweight (BMI 25.0-29.9) Pure hypercholesterolemia Hx of coronary angiogram Insomnia Coronary atherosclerosis Prostate cancer GERD (gastroesophageal reflux disease) Surgical History S/P drug eluting coronary stent placement (~03/25/23) Stented coronary artery History of right inguinal hernia repair (~04/2009) History of inguinal hernia repair History of tonsillectomy and adenoidectomy Family History Father No problems noted. Mother No problems noted. Social History Housing: Apartment Patient Tobacco Use Status: Former Tobacco user e-Cigarette/Vaping Use: Never Used service: No Current occupational status: employed Cognitive needs: No Hearing needs: No Vision needs: No Review of Systems Const All systems reviewed & are unremarkable except as noted in HPI and below Reports no additional complaints Resp Reports no additional complaints GI Reports no additional complaints Reports as per HPI Musc Reports no additional complaints Physical Exam Telemedicine evaluation Appropriate responses Regular breathing rate and rhythm HEENT Head: Yes normal to inspection Ears: hearing grossly normal bilaterally Eyes General: appearance normal, both eyes and all related structures Neck Neck: Yes normal visual inspection Chest Chest palpation & inspection: normal inspection of the chest Resp Effort & Inspection: normal respiratory effort and able to speak in complete sentences Telehealth Telehealth Telehealth Platform: L2 Location of provider rendering services: practice address Location of patient: address on file Patient Identification confirmed using: Name, : Yes Telehealth method: video Patient verbally consented to treatment: Yes Patient verbally consented to billing insurance company: Yes Patient informed of any privacy concerns related to visit: Yes Minutes spent on Phone/Video with Pt.: 15 Assessment & Plan Assessment & Plan (1) Prostate cancer: Comment: 02/17 high-grade, high-volume Code(s): C61 - Malignant neoplasm of prostate Category: Medical Plan 6m f/u T and PSA in office Orders: Orders Testosterone, Total 6 Months C61 - Malignant neoplasm of prostate Prostate Specific Antigen 6 Months C61 - Malignant neoplasm of prostate Patient Instructions: This note is constructed using voice recognition software. While every effort has been made to ensure accuracy rock wool applicator errors may have been included. Imaging studies, laboratory and physical exam results were discussed and reviewed in detail. No major barriers to patient understanding were identified. An opportunity to ask questions regarding the treatment plan was provided. All questions were answered. The patient expressed understanding and agreement with the above treatment plan. The patient is aware they should contact our office by phone for worsening of their current condition or the appearance of new urologic symptoms. Compliance is encouraged with any medications and followup testing that is ordered. It is a privilege to participate in the urologic care of your patient. If you have any questions or concerns regarding treatment for the above conditions, or other urologic issues, please do not hesitate to contact me. The office telephone contact is [phone]. Sincerely, Dr Ac Velasquez MD, [facility] - Urology Compassionate Specialist Care for the Genitourinary System Coding Level of Care Code Tele Est Pt Level 3 (77587) Complex EM visit Add On G2211 Diagnoses Prostate cancer C61
== END 2025-05-08 16:03 | disposition home or self-care (01) ==
LOC: HO.HUSH 15:38
PROVIDERS: PCP Internal Medicine; Visit Provider Urology
DX: C61 Malignant neoplasm of prostate (principal)
CPT/HCPCS: 99213; G2211

== ENCOUNTER 2025-06-04 14:12 | Outpatient (REF) | payer MEDICARE, SELFPAY ==
[2025-06-04 14:33] LABS: MANUAL DIFF FLAG NO
[2025-06-04 15:19] LABS: Appearance Urine Clear; Glucose Urine UA Negative (Negative); PH 5.0 (5.0-9.0); Specific Gravity - Urine >= 1.030 (1.005-1.025); UMIC TRIGGER UACC YES
[2025-06-04 15:29] LABS: Hematocrit 42.1 % (42.0-52.0); Hemoglobin 14.6 g/dl (14.0-18.0); Imm Gran Abs Auto 0.06 X10*3/uL (0.00-0.03); Imm Gran Pct Auto 0.7 % (0.0-0.4); Lymphocytes Absolute Auto 1.3 X10*3/uL (1.2-4.9); Mean Corpuscular HGB Conc 34.7 g/dl (31.0-36.0); Mean Corpuscular Hemoglobin 32.2 pg (27.0-33.0); Mean Corpuscular Volume 92.9 fL (80.0-98.0); NRBC Abs Auto 0.000 X10*3/uL (0.0-0.012); NRBC Pct Auto 0.0 /100WBC (0.0-0.2); Platelet Count 302 X10*3/uL (160-400); Red Blood Count 4.53 X10*6/uL (4.60-5.80); White Blood Count 8.8 X10*3/uL (4.8-10.8)
[2025-06-04 16:05] LABS: Albumin Level 4.4 g/dL (3.5-5.0); Alkaline Phosphatase 91 U/L (39-117); Anion Gap 12 (12-20); Aspartate Amino Transferase 52 U/L (5-37); Blood Urea Nitrogen 18 mg/dL (9-16); Calcium 9.8 mg/dL (8.4-10.2); Carbon Dioxide 25 mmol/L (22-29); Chloride 109 mmol/L (96-108); Cholesterol 147 mg/dL (<200); Estimated Glomerular Filt Rate > 60; HDL Cholesterol 56 mg/dL (>40); Potassium 4.1 mmol/L (3.3-5.1); Sodium 142 mmol/L (135-145); Total Protein 6.8 g/dL (6.5-8.0); Triglycerides 154 mg/dL (<150)
[2025-06-04 16:13] LABS: Alanine Aminotransferase 42 U/L (0-40)
== END 2025-06-04 14:13 | disposition home or self-care (01) ==
LOC: HO.LAB 14:12
PROVIDERS: Absent Provider Internal Medicine; PCP Internal Medicine; Visit Provider Internal Medicine
DX: Z12.11 Encounter for screening for malignant neoplasm of colon (principal); I25.10 Atherosclerotic heart disease of native coronary artery without angina pectoris; D64.9 Anemia, unspecified; E78.00 Pure hypercholesterolemia, unspecified; K21.9 Gastro-esophageal reflux disease without esophagitis; R30.0 Dysuria; Z87.891 Personal history of nicotine dependence
CPT/HCPCS: 36415; 80053; 80061; 80076; 81001; 82248; 84443; 85025; 99202

== ENCOUNTER 2025-06-04 15:04 | Outpatient (AMB) | payer MEDICARE, SELFPAY ==
--- NOTE | 2025-06-04 15:19 | A.OFFVIS_ITS ---
Vital Signs 06/04/25 15:24 Height 5 ft 6 in Weight 159 lb 9.835 oz BMI 25.8 BP 100/72 Blood Pressure Location Lt brachial Position Sitting Pulse 82 Pulse Source Pulse Oximeter Pulse Oximetry (%) 97 Oxygen Delivery Method Room Air Intake Visit Reasons: gerd, colo screening pt called confirmed 05/29 Intake Note: New pt for colo screening. Negative cologuard 2023, however; pcp note states pt has frequent bowel issues. CC; C.O. intermittent GERD with identified triggers. Pt also reports that he often has frequent bowel movements but denies any additional difficulties. Pt s tates that he takes OTC omeprazole which usually helps but will have breakthrough episodes despite that. Plug Paster Required: No Accompanied by: Self / Same As Patient Allergies No Known Allergies Allergy (Mild, Verified 05/08/25 15:39) NKA HPI HPI gerd, colo screening pt called confirmed 05/29: Details: 75 year old? male with past medical history of pruritus, prostatic adenocarcinoma, cholestyramine, coronary atherosclerosis, insomnia, GERD is here today for pre colonoscopy screening.? Patient was sent to us by his PCP.? This is his first colonoscopy screening.? Patient had negative Cologuard a year ago. Reports more frequent bowel movements since his radiation therapy for prostate cancer. Patient denies melena, hematochezia, unintentional weight loss or ribbon like stools. Denies any personal or family history of gastrointestinal disease, colon polyps, or CRC.? Denies history of difficulty with sedation or anesthesia in the past.? Negative for history of sleep apnea.? Denies any history of renal, pulmonary, or hepatic disease.?? No history of infectious diseases like hepatitis A, B, C, HIV or tuberculosis.? Patient is on low-dose aspirin [facility] Medical History Vitamin D deficiency Colonoscopy refused Overweight (BMI 25.0-29.9) Pure hypercholesterolemia Hx of coronary angiogram Insomnia Coronary atherosclerosis Prostate cancer GERD (gastroesophageal reflux disease) Surgical History S/P drug eluting coronary stent placement (~03/25/23) Stented coronary artery History of right inguinal hernia repair (~04/2009) History of inguinal hernia repair History of tonsillectomy and adenoidectomy Family History Father No problems noted. Mother No problems noted. Social History Housing: Apartment Patient Tobacco Use Status: Former Tobacco user e-Cigarette/Vaping Use: Never Used service: No Current occupational status: employed Cognitive needs: No Hearing needs: No Vision needs: No Review of Systems Const Denies weight gain and Denies weight loss ENT Reports no additional complaints, Denies dysphagia and Denies odynophagia Card Reports no additional complaints Resp Reports no additional complaints GI Denies abdominal pain, Denies belching, Denies melena, Denies bloating, Denies change in bowel habits, Denies dysphagia, Denies excessive flatus, Denies dyspepsia, Denies heartburn, Denies diarrhea, Reports loose stools (Occasional), Denies nausea, Denies odynophagia and Denies vomiting Reports no additional complaints Musc Reports no additional complaints Neuro Reports no additional complaints Psych Reports no additional complaints Endo Reports no additional complaints Physical Exam Vital Signs: Last Vital Signs Pulse 82 06/04/25 15:24 BP 100/72 06/04/25 15:24 Pulse Ox 97 06/04/25 15:24 Oxygen Delivery Method Room Air 06/04/25 15:24 BMI result Body Mass Index 25.8 Const General: healthy appearing, no acute distress and well developed Nutritional Appearance: well nourished Orientation/consciousness: patient oriented x3 Resp Effort & Inspection: normal respiratory effort, able to speak in complete sentences, no tracheal deviation and symmetric chest movement Auscultation: clear to auscultation bilaterally Cardio Rate: regular rate GI Inspection: Yes normal to inspection and No distended Palpation (GI): Soft to palpation, not firm, nontender and No hepatosplenomegaly present Auscultation: normal bowel sounds General: Yes no CVA tenderness Back/Spine/Pelvis Back: no CVA tenderness Skin General skin exam: elasticity normal, turgor normal and dry skin Neuro General: patient oriented x3 Psych Appearance: grossly normal Mental Status: mental status grossly normal Assessment & Plan Assessment & Plan (1) Colon cancer screening: Code(s): Z12.11 - Encounter for screening for malignant neoplasm of colon Category: Medical (2) GERD (gastroesophageal reflux disease): Code(s): K21.9 - Gastro-esophageal reflux disease without esophagitis Category: Medical Qualifiers: Esophagitis presence: without esophagitis Qualified Code(s): K21.9 - Gastro-esophageal reflux disease without esophagitis Plan Patient denies any cardiac or respiratory symptoms.? Reports more frequent bowel movements. Patient feels like this is after he underwent radiation for his prostate cancer. Acid reflux for the most part this suppressed by omeprazole with occasional breakthrough symptoms. Patient does admit to be drinking alcohol every evening. Patient will be sent for upper endoscopy to check for gastritis, duodenitis, esophagitis, Barretts. Denies any issues with anesthesia in the past.? Denies any history of sleep apnea.? No history infectious diseases in the past or present.? Not on any anticoagulation therapy.? No family or personal history of colon cancer or polyps.? Patient denies melena, hematochezia, unintentional weight loss or ribbon like stools.? Discussed at length the pre-procedure,? prep, diet & medications as well as what to expect prior, during and after the procedure.?? Stressed the importance of good bowel prep.? Recommended the use of Vaseline or Calmoseptine OTC & baby wipes with bowel movements to promote comfort.? ?Patient verbalizes understanding and agrees to plan of care.? He was given the opportunity to ask questions and all questions answered.? We will see him after the procedure.? Medications: New bisacodyl (Dulcolax (bisacodyl)) take 4 tabs at noon the day before your colonoscopy 20 mg (4 x 5 mg) PO ONCE 4 tabs 0RF constipation 1 day Z12.11 - Encounter for screening for malignant neoplasm of colon polyethylene glycol 3350 (Miralax) As directed by gastroenterology department at [facility] 238 grams PO ONCE 238 grams 0RF Z12.11 - Encounter for screening for malignant neoplasm of colon Coding Level of Care Code New Pt Level 3 (35813) Diagnoses Colon cancer screening Z12.11 Gastroesophageal reflux disease without esophagitis K21.9 Esophagitis presence: without esophagitis Time Spent (min) 40 Comment 30 minutes spent with patient and additional 10 minutes spent reviewing his records
[2025-06-04 15:24] VITALS: BP 100/72; PULSE 82; O2SAT 97; BMI 25.8
== END 2025-06-04 15:59 | disposition home or self-care (01) ==
LOC: HO.HGI 15:04
PROVIDERS: PCP Internal Medicine; Visit Provider Nurse Practitioner Family
DX: K21.9 Gastro-esophageal reflux disease without esophagitis (principal)
CPT/HCPCS: 99203

== ENCOUNTER 2025-06-10 16:36 | Outpatient (AMB) | payer MEDICARE, SELFPAY ==
--- NOTE | 2025-06-10 16:43 | A.OFFPC_ITS ---
Vital Signs 06/10/25 16:44 Height 5 ft 6 in Weight 161 lb BMI 26.0 BP 112/70 Blood Pressure Location Lt brachial Position Sitting Pulse 78 Pulse Source Pulse Oximeter Pulse Oximetry (%) 98 Oxygen Delivery Method Room Air Intake Visit Reasons: hyperlipidemia, CAD, GERD, Hx prostate CA Certified Ophthalmic Medical Technician Required: No Accompanied by: Self / Same As Patient Allergies No Known Allergies Allergy (Mild, Verified 06/10/25 17:04) NKA Medication List - Last Reconciled 06/10/25 by Nikos Villasenor MD aspirin 81 mg PO DAILY 90 days atorvastatin 80 mg PO BEDTIME 90 days bisacodyl (Dulcolax (bisacodyl)) 20 mg (4 x 5 mg) PO ONCE 1 day cholecalciferol (vitamin D3) 50 mcg PO DAILY 90 days clobetasol 0.05% 1 appl topical DAILY cyclobenzaprine 10 mg PO BEDTIME diclofenac sodium 75 mg PO BID 10 days ezetimibe (Zetia) 10 mg PO DAILY hydrocortisone 2.5% 1 appl topical TID PRN nystatin 1 appl topical TID omeprazole 20 mg PO DAILY polyethylene glycol 3350 (Miralax) 238 grams PO ONCE valacyclovir 1,000 mg PO BID 10 days Tobacco use date assessed: 01/29/25 Dental Screening Dental Screen Date: 01/29/25 HPI hyperlipidemia, CAD, GERD, Hx prostate CA HPI Details Patient comes in today for his follow up visit States that he feels okay He denies any headaches or dizziness Denies any exertional chest pains or increased shortness of breath No nausea/vomiting, no abdominal pain No change in bowel habits noted He had his follow up labs done last week - to discuss his results [facility] Medical History Vitamin D deficiency Colonoscopy refused Overweight (BMI 25.0-29.9) Pure hypercholesterolemia Hx of coronary angiogram Insomnia Coronary atherosclerosis Prostate cancer GERD (gastroesophageal reflux disease) Surgical History S/P drug eluting coronary stent placement (~03/25/23) Stented coronary artery History of right inguinal hernia repair (~04/2009) History of inguinal hernia repair History of tonsillectomy and adenoidectomy Family History Father No problems noted. Mother No problems noted. Social History Housing: Apartment Patient Tobacco Use Status: Former Tobacco user e-Cigarette/Vaping Use: Never Used Second Hand Smoke Exposure: No service: No Current occupational status: employed Cognitive needs: No Hearing needs: No Vision needs: No Questionnaire PHQ-9 Over the last 2 weeks, how often have you been bothered by any of the following problems? 1. Little interest or pleasure in doing things: not at all 2. Feeling down, depressed, or hopeless: not at all 3. Trouble falling or staying asleep, or sleeping too much: not at all 4. Feeling tired or having little energy: not at all 5. Poor appetite or overeating: not at all 6. Feeling bad about yourself - or that you are a failure or have let yourself or your family down: not at all 7. Trouble concentrating on things, such as reading the newspaper or watching television: not at all 8. Moving or speaking so slowly that other people could have noticed. Or the opposite - being so fidgety or restless that you have been moving around a lot more than usual: not at all 9. Thoughts that you would be better off or of hurting yourself in some way: not at all Total score: 0 Depression Screening Interpretation: Negative Depression Screening Done: Yes 22736 - PHQ-9 Billing: Yes Source: Developed by Drs. Amadou Canas, Katharine Lamb, Walter Gupta and colleagues, with an educational aimee from [employer]. Thrive Questionnaire Date Thrive assessed: 06/10/25 I am a: Patient What is your living situation today?: I have a steady place to live Within the past 12 months, did the food you bought not last and you didn't have the money to get more?: Never true Within the past 12 months, did you worry whether your food would run out before you got money to buy more?: Never true Do you have trouble paying for medicines?: No Do you have trouble getting transportation to medical appointments?: No Do you have trouble paying your heating and electricity bill?: No Do you have trouble taking care of your child, family member or friend?: I choose not to answer this question Do you have trouble with day-to-day activities such as bathing, preparing meals, shopping, managing finances, etc.?: I choose not to answer this question Are you currently unemployed and looking for a job?: I choose not to answer this question Are you interested in more education?: I choose not to answer this question Please select the resources that you would like help with: None Currently or been in a relationship where the following occur: I choose not to answer THRIVE Score: 0 AUDIT C Alcohol Use Questionnaire (AUDIT-C) 1. How often do you have a drink containing alcohol?: 4 or more times a week 2. How many drinks containing alcohol do you have on a typical day when you are drinking?: 3 or 4 3. How often do you have six or more drinks on one occasion?: Monthly Total Score: 7 Score Reviewed/Action Taken: Yes RAUL-7 AMB Questionnaire RAUL-7 Date RAUL - 7 assessed: 01/29/25 Feeling nervous, anxious, or on edge: 0 = Not at all Not being able to stop or control worryin = Not at all Worrying too much about different things: 0 = Not at all Trouble relaxin = Not at all Being so restless that it is hard to sit still: 0 = Not at all Becoming easily annoyed or irritable: 0 = Not at all Feeling afraid as if something awful might happen: 0 = Not at all Total RAUL-7 score (0-4 normal; 5-9 mild; 10-14 moderate; 15-21 severe): 0 Source: Developed by Drs. Amadou Canas, Katharine Lamb, Walter Gupta and colleagues, with an educational aimee from [employer]. Review of Systems Const Denies chills, Reports difficulty sleeping (chronic), Reports fatigue, Denies fever(s) and Denies headache(s) ENT Denies dysphagia, Denies dizziness, Denies otalgia, Denies headache(s), Denies neck pain, Denies odynophagia and Denies sore throat Card Denies chest pain, Denies palpitations and Denies dyspnea Resp Denies chest congestion, Denies cough and Denies dyspnea GI Denies abdominal pain, Reports hematochezia (occasionally), Denies dysphagia, Reports heartburn, Reports diarrhea (on and off), Reports loose stools (on and off), Denies nausea, Denies odynophagia and Denies vomiting Reports hematuria (occasionally), Denies dysuria, Denies nocturia, Denies urinary frequency and Reports urinary urgency (occasionally) Musc Denies back pain and Denies neck pain Skin/Breast Reports lesions ((+) scattered scaling lesions) and Denies rash Neuro Denies dizziness and Denies headache(s) Psych Denies depression Endo Reports fatigue and Denies palpitations Physical exam (Primary Care) Vital Signs: Last Vital Signs Pulse 78 06/10/25 16:44 BP 112/70 06/10/25 16:44 Pulse Ox 98 06/10/25 16:44 Oxygen Delivery Method Room Air 06/10/25 16:44 BMI result Body Mass Index 26.0 Tobacco/Smoking Status: Tobacco use Status Tobacco use date assessed 01/29/25 06/10/25 16:49 Patient Tobacco Use Status Former Tobacco user 06/10/25 16:49 e-Cigarette/Vaping Use Never Used 06/10/25 16:49 PHQ-9: PHQ-9 Score PHQ-9: Total score 0 06/10/25 16:49 Depression Screening Interpretation: Negative Thrive Assessment: Date of Thrive Assessment Date Thrive assessed 06/10/25 06/10/25 16:49 Currently or been in a relationship where the following occur: I choose not to answer Const General: no acute distress and alert HENMT Ears: TM's normal bilaterally and EAC's normal Throat: Yes posterior oropharynx normal and Yes tonsils normal (no TP congestion) Neck Neck: Yes supple and No lymphadenopathy Thyroid: Thyroid normal Resp Auscultation: clear to auscultation bilaterally, no rales and no wheezes Cardio Rate: regular rate Rhythm: regular rhythm Heart sounds: no murmurs GI Palpation (GI): Soft to palpation and nontender Auscultation: normal bowel sounds General: Yes no CVA tenderness Back/Spine/Pelvis Back: no CVA tenderness Skin Lesions: lesion noted (scattered scaling skin lesions) Rashes: no rashes Extrem General: Yes no clubbing, cyanosis or edema Results Reviewed Results Reviewed: Laboratory Tests 04/25/25 06/04/25 06/04/25 15:49 14:25 14:31 WBC 8.8 Hgb 14.6 Hct 42.1 Plt Count 302 Sodium 142 Potassium 4.1 Creatinine 0.88 Estimated GFR > 60 Fasting Glucose 102 H Calcium 9.8 AST 52 H ALT 42 H Triglycerides 154 H Cholesterol 147 LDL Cholesterol, Calc 61 HDL Cholesterol 56 Prostate Specific Ag < 0.10 TSH 1.60 Total Testosterone 62 L Ur Specific [place] >= 1.030 H Urine Protein Negative Urine Glucose (UA) Negative Urine Blood Small (1+) H Urine Nitrite Negative Ur Leukocyte Esterase Negative Coding Level of Care Code Est Pt Level 4 (79129) Diagnoses Atherosclerosis of [place] coronary artery of [place] heart without angina pectoris I25.10 Coronary Disease-Associated Artery/Lesion type: [place] artery [place] vs. transplanted heart: [place] heart Associated angina: without angina Pure hypercholesterolemia E78.00 Prostatic adenocarcinoma C61 Hypotestosteronism E34.9 Gastroesophageal reflux disease without esophagitis K21.9 Esophagitis presence: without esophagitis Vitamin D deficiency E55.9 History of herpes genitalis Z86.19 Insomnia, unspecified type G47.00 Insomnia type: unspecified Overweight (BMI 25.0-29.9) E66.3 Additional Codes PHQ-9 - 89686 - PHQ-9 Billing: Yes ([id number]) Assessment & Plan Assessment & Plan (1) Coronary atherosclerosis: Code(s): I25.10 - Atherosclerotic heart disease of [place] coronary artery without angina pectoris Category: Medical Qualifiers: Coronary Disease-Associated Artery/Lesion type: [place] artery [place] vs. transplanted heart: [place] heart Associated angina: without angina Qualified Code(s): I25.10 - Atherosclerotic heart disease of [place] coronary artery without angina pectoris Plan: S/P NSTEMI in 02/2023; S/P KERRY to proximal OM1 Continue Clopidogrel 75 mg QD, Aspirin 81 mg QD and Metoprolol 12.5 mg BID He is currently asymptomatic from a cardiac standpoint and just had a negative stress test done earlier this year Follow up with cardiology as scheduled (2) Pure hypercholesterolemia: Code(s): E78.00 - Pure hypercholesterolemia, unspecified Category: Medical Plan: Results of his labs done last week reviewed and discussed with patient Reinforced low-cholesterol diet Continue Atorvastatin 80 mg QD and Ezetimibe 10 mg QD Will recheck his labs and fasting lipids in 4 months for follow-up (3) Prostatic adenocarcinoma: Comment: high-grade, initial therapy external beam radiation with GnRH Code(s): C61 - Malignant neoplasm of prostate Category: Medical Plan: S/P initial Tx with external beam radiation to prostate and to the pelvic lymph nodes with Bicalutamide Continue Eligard 45 mg Q 6 months and Finasteride 5 mg QD Follow up with urology as scheduled for continuing management and surveillance (4) Hypotestosteronism: Code(s): E34.9 - Endocrine disorder, unspecified Category: Medical Plan: Have advised patient that his testosterone level is very low on his recent labs but this is expected because he is on Tx with GnRH for his prostate cancer Follow up with urology as scheduled regarding this (5) GERD (gastroesophageal reflux disease): Code(s): K21.9 - Gastro-esophageal reflux disease without esophagitis Category: Medical Qualifiers: Esophagitis presence: without esophagitis Qualified Code(s): K21.9 - Gastro-esophageal reflux disease without esophagitis Plan: Dietary restrictions reinforced Continue Famotidine 10 mg QD PRN Follow up with GI as scheduled (6) Vitamin D deficiency: Code(s): E55.9 - Vitamin D deficiency, unspecified Category: Medical Plan: Continue OTC Vitamin D3 2000 units QD (7) History of herpes genitalis: Code(s): Z86.19 - Personal history of other infectious and parasitic diseases Category: Medical Plan: Continue episodic Tx with Valtrex 1 gm BID x 10 days ONLY if he has acute flare ups of genital herpes (8) Insomnia: Code(s): G47.00 - Insomnia, unspecified Category: Medical Qualifiers: Insomnia type: unspecified Qualified Code(s): G47.00 - Insomnia, unspecified Plan: Sleep hygiene reinforced Continue Trazodone 50 mg Q HS PRN (9) Overweight (BMI 25.0-29.9): Code(s): E66.3 - Overweight Category: Medical Plan: Reinforced diet/exercise as tolerated/lose weight Plan Follow-up in 4 months Orders: Orders Complete Blood Count Auto Diff 4 Months D64.9 - Anemia, unspecified Lipid Panel 4 Months E78.00 - Pure hypercholesterolemia, unspecified TSH reflex Free T4 4 Months E78.00 - Pure hypercholesterolemia, unspecified UA CC w/rflx Micro + Cult 4 Months R30.0 - Dysuria Comprehensive [place]. Panel Fast 4 Months E78.00 - Pure hypercholesterolemia, unspecified Vitamin D 25-OH Total 4 Months E55.9 - Vitamin D deficiency, unspecified Vitamin B12 and Folate 4 Months E53.8 - Deficiency of other specified B group vitamins Hemoglobin A1c 4 Months R73.01 - Impaired fasting glucose
[2025-06-10 16:44] VITALS: BP 112/70; PULSE 78; O2SAT 98; BMI 26.0
== END 2025-06-10 17:22 | disposition home or self-care (01) ==
LOC: HO.HMCH 16:37
PROVIDERS: PCP Internal Medicine; Visit Provider Internal Medicine
DX: I25.10 Atherosclerotic heart disease of native coronary artery without angina pectoris (principal); E78.00 Pure hypercholesterolemia, unspecified; C61 Malignant neoplasm of prostate; E34.9 Endocrine disorder, unspecified; K21.9 Gastro-esophageal reflux disease without esophagitis; E55.9 Vitamin D deficiency, unspecified; Z86.19 Personal history of other infectious and parasitic diseases; G47.00 Insomnia, unspecified; E66.3 Overweight

== ENCOUNTER → 2025-06-10 16:36 | Outpatient (BNVA) | payer MEDICARE, SELFPAY | PROVIDERS: PCP Internal Medicine; Visit Provider Internal Medicine | DX: I25.10 Atherosclerotic heart disease of native coronary artery without angina pectoris (principal); E78.00 Pure hypercholesterolemia, unspecified; C61 Malignant neoplasm of prostate; E34.9 Endocrine disorder, unspecified; K21.9 Gastro-esophageal reflux disease without esophagitis; E55.9 Vitamin D deficiency, unspecified; G47.00 Insomnia, unspecified; E66.3 Overweight; Z68.26 Body mass index [BMI] 26.0-26.9, adult; I25.2 Old myocardial infarction; Z86.19 Personal history of other infectious and parasitic diseases; Z79.82 Long term (current) use of aspirin; Z79.899 Other long term (current) drug therapy; Z13.31 Encounter for screening for depression | CPT/HCPCS: 96127; 99212 ==

== ENCOUNTER 2025-06-19 14:16 | Outpatient (AMB) | payer BC, SELFPAY ==
[2025-06-19 14:22] VITALS: BP 110/60; PULSE 72; BMI 26.0
--- NOTE | 2025-06-19 14:22 | A.OFFVIS_ITS ---
Vital Signs 06/19/25 14:22 Height 5 ft 6 in Weight 160 lb 14.999 oz BMI 26.0 BP 110/60 Blood Pressure Location Lt brachial Position Sitting Pulse 72 Pulse Source Monitor Intake Visit Reasons: 6m follow up Allergies No Known Allergies Allergy (Mild, Verified 06/10/25 17:04) NKA Medication List - Last Reconciled 06/19/25 by Patel Ledesma MD aspirin 81 mg PO DAILY 90 days atorvastatin 80 mg PO BEDTIME 90 days bisacodyl (Dulcolax (bisacodyl)) 20 mg (4 x 5 mg) PO ONCE 1 day cholecalciferol (vitamin D3) 50 mcg PO DAILY 90 days clobetasol 0.05% 1 appl topical DAILY cyclobenzaprine 10 mg PO BEDTIME diclofenac sodium 75 mg PO BID 10 days ezetimibe (Zetia) 10 mg PO DAILY hydrocortisone 2.5% 1 appl topical TID PRN nystatin 1 appl topical TID omeprazole 20 mg PO DAILY polyethylene glycol 3350 (Miralax) 238 grams PO ONCE valacyclovir 1,000 mg PO BID 10 days HPI Comments Details: Narayan returns for follow-up regarding coronary disease. In 02/2023, treated for NSTEMI. Underwent cardiac catheterization and stenting of the OM1. Overall, he states that he feels quite good. 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 Otherwise, getting along fine. [facility] Medical History Vitamin D deficiency Colonoscopy refused Overweight (BMI 25.0-29.9) Pure hypercholesterolemia Hx of coronary angiogram Insomnia Coronary atherosclerosis Prostate cancer GERD (gastroesophageal reflux disease) Surgical History S/P drug eluting coronary stent placement (~03/25/23) Stented coronary artery History of right inguinal hernia repair (~04/2009) History of inguinal hernia repair History of tonsillectomy and adenoidectomy Family History Father No problems noted. Mother No problems noted. Social History Housing: Apartment Patient Tobacco Use Status: Former Tobacco user e-Cigarette/Vaping Use: Never Used Second Hand Smoke Exposure: No service: No Current occupational status: employed Cognitive needs: No Hearing needs: No Vision needs: No Review of Systems Const Denies weakness ENT Denies dizziness Card Denies chest pain, Denies chest pain with activity, Denies syncope, Denies rapid heart rate, Denies pedal edema, Denies edema, Denies leg edema, Denies lightheadedness, Denies palpitations, Denies dyspnea, Denies dyspnea on exertion and Denies orthopnea Resp Denies cough, Denies dyspnea and Denies dyspnea on exertion GI Denies hematochezia and Denies change in stool character Musc Denies abnormal gait, Denies muscle cramps, Denies muscle weakness, Denies numbness, Denies radiating pain into limb and Denies tingling Neuro Denies abnormal gait, Denies dizziness, Denies syncope, Denies numbness, Denies tingling and Denies weakness Endo Denies palpitations Physical Exam Vital Signs: Last Vital Signs Pulse 72 06/19/25 14:22 BP 110/60 06/19/25 14:22 BMI result Body Mass Index 26.0 Const General: comfortable and no acute distress Orientation/consciousness: patient oriented x3 HEENT Other: Unremarkable Head: Yes normal to inspection Neck Neck: Yes normal visual inspection Chest Chest palpation & inspection: normal inspection of the chest Resp Auscultation: clear to auscultation bilaterally Cardio Palpation: normal PMI Heart sounds: S1 normal heart sound present, S2 normal heart sound present, no gallops, no murmurs and no rubs GI Palpation (GI): Soft to palpation Back/Spine/Pelvis Other: unremarkable Skin General skin exam: no rashes or lesions noted Neuro General: patient oriented x3 Extrem General: Yes normal to inspection Psych Mental Status: mental status grossly normal Office Procedures EKG Details: EKG with underlying sinus rhythm at 72/Min; cannot exclude old inferior infarct but could be from body habitus; cannot exclude old lateral infarct-could be related to lead placement and body habitus. [place] [id number], Complete Assessment & Plan Assessment & Plan (1) Coronary atherosclerosis: Code(s): I25.10 - Atherosclerotic heart disease of [place] coronary artery without angina pectoris Category: Medical Qualifiers: Associated angina: without angina Coronary Disease-Associated Artery/Lesion type: [place] artery [place] vs. transplanted heart: [place] heart Qualified Code(s): I25.10 - Atherosclerotic heart disease of [place] coronary artery without angina pectoris (2) Stented coronary artery: Code(s): Z95.5 - Presence of coronary angioplasty implant and graft Category: Surgical (3) Hyperlipidemia, unspecified: Code(s): E78.5 - Hyperlipidemia, unspecified Category: Medical Plan Cardiac studies reviewed. Cardiac catheterization 02/2023- Culprit lesion was thrombotic occlusion of proximal OM 1, status post PCI. Otherwise, proximal RCA with 40% stenosis. Mid LAD 40% stenosis. Mid D2 50% stenosis. Echocardiogram with LVEF of 40-50%. Severe hypokinesis in the basal to mid inferolateral/anterolateral [place]. Mild aortic valve thickening but no significant stenosis or regurgitation. Severe posterior mitral annular calcification. In the most recent echocardiogram preserved LVEF of 56% and no wall motion abnormalities. Overall, seems improved. ETT January 2024-6.2 METS on Jose protocol, reached 94% of target heart rate no angina, no EKG evidence of ischemia- apparently performed for work clearance. Overall, treat for stable coronary artery disease. Continue aspirin. Off beta-blockers due to tiredness. For dyslipidemia, on statins and Zetia. Last LDL 61 mg/dL. Slight LFT abnormality and advised him to cut back on drinking but he states he enjoys alcohol daily. Advised to cut back. Discussion Notes I discussed with the patient the importance of monitoring for symptoms such as chest pain, pressure, or heaviness, and advised him to report any new or worsening symptoms immediately. We talked about the impact of alcohol on cardiovascular health, and I recommended reducing consumption to improve overall well-being. The patient is to continue his current medication regimen, and to attend regular follow-up appointments to monitor his cardiovascular status. Patient was informed and verbally consented to the use of an ambient scribe for clinic note documentation during this visit. Patient Instructions: - Monitor for chest pain, pressure, or heaviness, especially during physical activity. - Report any new or worsening symptoms immediately. - Reduce alcohol consumption to improve heart health. - Continue current medications as prescribed. - Attend regular follow-up appointments to monitor heart health. Coding Level of Care Code Est Pt Level 4 (74375) Complex EM visit Add On G2211 Diagnoses Atherosclerosis of [place] coronary artery of [place] heart without angina pectoris I25.10 Associated angina: without angina Coronary Disease-Associated Artery/Lesion type: [place] artery [place] vs. transplanted heart: [place] heart Stented coronary artery Z95.5 Hyperlipidemia, unspecified E78.5 CPT Codes EKG - CPT: 44158-[id number], Complete ([id number])
--- OUTSIDE RECORDS SUMMARY | 2025-06-19 14:59 | XMS_ITS | Clinical Summary ---
Author Organization [facility] Address [address] [place] [id number] Phone Care Team Providers Care Animal Control Licensing Worker Name Role Phone Nikos Villasenor MD Primary Care Provider [phone] Allergies No known active allergies Medications cimetidine (TAGAMET) 200 MG tablet Take 200 mg by mouth 4 (four) times a day. Active Active Problems Problem Noted Date Diagnosed Date GERD (gastroesophageal reflux disease) 9 Immunizations Immunization Administration Dates Next Due Tdap 11/03/2021 Social [...] Assigned at Male 11/03/2021 10:37 AM EST Legal Sex Male 10:40 AM EDT Gender Identity Male 11/03/2021 10:37 AM EST Sexual Orientation Straight 11/03/2021 10 :37 AM EST Last Filed Vital Signs Vital Sign Reading Time Taken Comments Blood Pressure 113/89 03/24/2023 2:02 PM EDT Pulse 68 03/24/2023 3:00 PM EDT Temperature 36.6 C (97.9 F) 03/24/2023 8:06 AM EDT Respiratory Rate 14 03/24/2023 3:00 PM EDT [...] Hx and SMOKELESS TOBACCO SCREENING 1962 HEPATITIS C SCREENING 1967 PNEUMOCOCCAL VACCINES (50+ years) (1 of 1 - PCV) 1999 ZOSTER VACCINES (1 of 2) 1999 RSV VACCINE (1 - 1-dose 75+ series) 02/21/2024 COVID-19 VACCINE (3 - 2023-2 5 season) [...] age to complete this topic MENINGOCOCCAL VACCINES (B) Aged Out N o longer eligible based on patient's age to complete this topic Medical Devices Not on file Insurance [place] [address] [place] [address] [place], [place] [address] [address] HMO O O HMO HMO Care Teams Animal Control Licensing Worker Relationship Specialty Start Date End Date Nikos Villasenor MD [address] [place] [address] Dr Cisneros [address] [place] [address] [place] [id number] PCP - General Internal Medicine 09/06/19 Additional Source Comments The information contained in this document represents components of the legal health record. It is not the complete legal health record.[facility]
== END 2025-06-19 14:46 | disposition home or self-care (01) ==
LOC: HO.HCS 14:17
PROVIDERS: PCP Internal Medicine; Visit Provider Internal Medicine
DX: I25.10 Atherosclerotic heart disease of native coronary artery without angina pectoris (principal); Z95.5 Presence of coronary angioplasty implant and graft; E78.5 Hyperlipidemia, unspecified
CPT/HCPCS: 93010; 99214

== ENCOUNTER → 2025-06-19 14:16 | Outpatient (BNVA) | payer BC, SELFPAY | PROVIDERS: PCP Internal Medicine; Visit Provider Internal Medicine | DX: I25.10 Atherosclerotic heart disease of native coronary artery without angina pectoris (principal); E78.5 Hyperlipidemia, unspecified; Z95.5 Presence of coronary angioplasty implant and graft; R94.31 Abnormal electrocardiogram [ECG] [EKG] | CPT/HCPCS: 93005 ==

== ENCOUNTER 2025-08-11 09:33 | Emergency (ER) | payer BC, SELFPAY ==
--- NOTE | ~2025-08-11 | CT_ITS ---
CLINICAL HISTORY: diarrhea x1 mo, hx prostate cancer CT abdomen and pelvis with contrast Comparison: None provided Findings: No consolidation or effusion. Unremarkable gallbladder and solid organs. No urolithiasis. No bowel obstruction, pneumoperitoneum, or pneumatosis. There are diverticula in the descending and sigmoid colon without imaging evidence of diverticulitis. Urinary bladder wall is concentrically thickened. Correlate for cystitis. Pelvic contents are otherwise unremarkable. Normal appendix. The bones are intact. IMPRESSION: Possible cystitis. Correlate clinically. This document has been electronically signed by: Howard Moreno MD on 08/11/2025 12:05:32
[2025-08-11 09:40] VITALS: PULSE 88; RESP 16; TEMP 36.6; O2SAT 98; BMI 26.6
--- OUTSIDE RECORDS SUMMARY | 2025-08-11 09:54 | XMS_ITS | Clinical Summary ---
Author Organization [facility] Address [address] [place] [id number] Phone Care Team Providers Care Estimator Lumber Name Role Phone Nikos Villasenor MD Primary Care Provider [phone] Allergies No known active allergies Medications cimetidine [...] 1-dose 75+ series) 02/21/2024 INFLUENZA VACCINE (#1) 2025 12/13/2019 COVID-19 VACCINE (3 - 2024-2 6 season) 2025 08/04/2021, 06/22/2021 Adult Td,Tdap Booster 11/03/2031 11/03/2021 [...] Medical Devices Not on file Insurance HMO [address] [place], [place] [address] [place], [place] [address]O O O HMO HMO Care Teams Estimator Lumber Relationship Specialty Start Date End Date Nikos Villasenor MD [address] [place] [address] Dr Cisneros [address] [place] [id number] PCP - General Internal Medicine 09/06/19 Additional Source Comments The information contained in this document represents components of the legal health record. It is not the complete legal health record.[facility]
--- NOTE | 2025-08-11 10:05 | ED_ITS ---
HPI - Nausea/Vomiting/Diarrhea General Chief complaint: Nausea/Vomiting/Diarrhea Stated complaint: diarrhea x1m. Time Seen by Provider: 08/11/25 09:52 Source: patient Mode of arrival: ambulatory Limitations: no limitations History of Present Illness ED Provider: AMELIA HILLIARD PA-C HPI Narrative: 75 yo M with PMH of GERD and prostate cancer (treated in 2022) presents to the ED with concerns of diarrhea x1 month. Reports issues with my bowels intermittently x years, with bowel movements becoming more loose and frequent over the last month. Stool is now watery and brown. No pain associated with BM. Denies abdominal pain. He reports correlation with certain foods he consumes however has not made an attempt to cut these foods out of his diet. He reports following up with his GI specialist at [facility] approx2 months ago. A colonoscopy was recommended at that time however he wanted to wait a few months. He has not followed up since. Using imodium which temporarily helps his symptoms. States she was on a week long course of amoxicillin a few months ago for a tooth infection. Denies any other antibiotics or new medications. No recent travel outside the country. He has a history of GERD - compliant with omeprazole daily. Denies nausea, vomiting. History of remote inguinal hernia surgery. Denies fever, chills, N/V, flank pain, urinary sx, hemaochezia or melena. Related Data Home Medications ?Medication ?Instructions ?Recorded ?Confirmed omeprazole 20 mg capsule,delayed 20 mg PO DAILY 06/19/25 release clobetasol 0.05 % topical cream 1 appl topical DAILY 0 06/10/25 06/19/25 Previous Rx's ?Medication ?Instructions ?Recorded aspirin 81 mg tablet,delayed 81 mg PO DAILY 90 days #9 0 tabs 04/13/23 release nystatin 100,000 unit/gram topical 1 appl topical TID #30 grams 10/22/23 cream cholecalciferol (vitamin D3) 50 50 mcg PO DAILY 90 day s #90 caps 04/03/24 mcg (2,000 unit) capsule valacyclovir 1 gram tablet 1,000 mg PO BID 10 days #20 tabs 04/03/24 hydrocortisone 2.5 % topical cream 1 appl topical TID PRN skin 09/22/24 irritation #28 grams ezetimibe 10 mg tablet (Zetia) 10 mg PO DAILY #90 tabs 12/19/24 cyclobenzaprine 10 mg tablet 10 mg PO BEDTIME #10 tabs 04/02/25 diclofenac sodium 75 mg 75 mg PO BID pain 10 days #2 0 tabs 04/02/25 tablet,delayed release bisacodyl 5 mg tablet,delayed 20 mg (4 x 5 mg) PO ONCE 06/04/25 release (Dulcolax (bisacodyl)) constipation 1 day #4 t abs polyethylene glycol 3350 17 238 g PO ONCE #238 grams 0 06/04/25 gram/dose oral powder (Miralax) tranexamic acid 650 mg tablet 650 mg PO DAILY 14 days #14 tabs 06/25/25 atorvastatin 80 mg tablet 80 mg PO BEDTIME 90 days #90 tabs 07/06/25 Allergies Allergy/AdvReac Type Severity Reaction Status Date / Time No Known Allergies Allergy Mild NKA Verified 08/11/25 09:41 Review of Systems 2 Review of Systems: Yes all other systems are reviewed and are negative [facility] Past Medical History Attestation statement: The following information was validated with the patient. Source: old records reviewed and nursing notes reviewed Medical History Vitamin D deficiency Colonoscopy refused Overweight (BMI 25.0-29.9) Pure hypercholesterolemia Hx of coronary angiogram Insomnia Coronary atherosclerosis Prostate cancer GERD (gastroesophageal reflux disease) Surgical History S/P drug eluting coronary stent placement (~03/25/23) Stented coronary artery History of right inguinal hernia repair (~04/2009) History of inguinal hernia repair History of tonsillectomy and adenoidectomy Family History Family History Father No problems noted. Mother No problems noted. Social History Social History Housing: Apartment Patient Tobacco Use Status: Former Tobacco user e-Cigarette/Vaping Use: Never Used Second Hand Smoke Exposure: No service: No Current occupational status: employed Cognitive needs: No Hearing needs: No Vision needs: No Physical Exam 2 Vital Signs: Vital Signs: Last Vital Signs Temp 97.9 F 08/11/25 13:32 Pulse 74 08/11/25 13:32 Resp 16 08/11/25 13:32 BP 161/86 H 08/11/25 13:32 Pulse Ox 98 08/11/25 13:32 O2 Del Method Room Air 08/11/25 13:32 BMI result Body Mass Index 26.6 hypertensive, vitals are otherwise wnl General: Well appearing, in no acute distress. Skin: Warm, dry, intact. No rashes or lesions. Head: Normocephalic, atraumatic. EENT: Hearing is intact b/l. Conjunctiva clear. PERRLA. EOM intact. Moist mucous membranes.? Cardiac: Chest wall symmetric. RRR Lungs: Normal respiratory effort without accessory muscle use. CTA bilaterally Abdomen: Soft, non-tender, non-distended. No rebound tenderness or guarding. Positive BS x4. JAYANT deferred. Ext: Upper and lower extremities atraumatic, without tenderness, deformity, swelling or erythema Neuro: AOx3. Normal speech. Ambulating with steady gait Course Course Course Narrative: CBC without leukocytosis or left shift. No anemia. H&H stable. Chemistry without acute electrolyte abnormality requiring intervention. No SILVIA. Liver function at baseline. Lipase WNL. Urine with trace blood and urine RBCs. No infection. CT abdomen/pelvis is quite unremarkable. There is no evidence of bowel obstruction, no evidence of diverticulitis or colitis. > patient has been in our emergency department for a total of 4 hours. Has not been able to provide us with a stool sample as he has had no episodes of diarrhea while here. He has no other complaints/concerns. His exam is benign and workup is reassuring. He has no significant risk factors for any infectious etiology. Advised follow up with his GI specialist for planned colonoscopy. tolerating PO in ED. Patient has remained stable throughout ED visit today. Discussed worrisome signs and symptoms and when to return to the ED. All questions answered at this time. Patient is agreeable with disposition and stable for discharge. Medications Administered Discontinued Medications Generic Name Dose Route Start Last Admin Trade Name Freq PRN Reason Stop Dose Admin Sodium Chloride 1,000 mls @ 999 mls/hr 08/11/25 11:30 08/11/25 13:01 Ns IV 08/11/25 12:30 Infused .Q1H1M TARA Infusion Iohexol 100 ml 08/11/25 11:07 08/11/25 11:07 Iohexol 350 Mg/Ml 100 Ml Infus..Btl IV 08/11/25 11:08 85 ml ONCE ONE Administration Medical Decision Making Medical Decision Making [facility] Narrative: 75 yo M with PMH of GERD and prostate cancer (treated in 2022) presents to the ED with concerns of diarrhea x1 month. patient is hypertensive, vitals are otherwise wnl. he is well appearing and in NAD. exam benign. Differential diagnosis includes IBS, constipation, bowel obstruction, malignancy, C diff, infectious colitis, UTI Plan for screening labs, imaging, GI panel/C diff testing, UA, re-evaluation Differential Diagnosis Differential Diagnoses: The differential diagnosis associated with the presentation includes as above. Admission/Observation not indicated. Lab Data [facility] Lab Attestation statement: I reviewed the patient's lab results. as above. 08/11/25 10:33 08/11/25 10:33 Labs: Lab Results 08/11/25 08/11/25 Range/Units 10:33 12:47 WBC 9.7 (4.8-10.8) X10*3/uL RBC 4.95 (4.60-5.80) X10*6/uL Hgb 15.8 (14.0-18.0) g/dl Hct 45.3 (42.0-52.0) % MCV 91.5 (80.0-98.0) fL MCH 31.9 (27.0-33.0) pg MCHC 34.9 (31.0-36.0) g/dl RDW 12.7 (11.0-16.0) % Plt Count 293 (160-400) X10*3/uL MPV 10.3 (9.4-12.4) fL Immature Gran % (Auto) 0.4 (0.0-0.4) % Neut % (Auto) 74.0 H (45-73) % Lymph % (Auto) 11.1 L (20-40) % [place] % (Auto) 8.1 (2-11) % Eos % (Auto) 5.8 H (0-4) % Baso % (Auto) 0.6 (0-2) % Lymph # (Auto) 1.1 L (1.2-4.9) X10*3/uL [place] # (Auto) 0.8 (0.1-1.2) X10*3/uL Eos # (Auto) 0.6 H (0.0-0.4) X10*3/uL Baso # (Auto) 0.1 (0.0-0.2) X10*3/uL Abs Immat Gran (auto) 0.04 H (0.00-0.03) X10*3/uL Absolute Neuts (auto) 7.2 (2.0-8.3) x10*3/uL Absolute Nucleated RBC 0.000 (0.0-0.012) X10*3/uL Nucleated RBC % (auto) 0.0 (0.0-0.2) /100WBC Sodium 139 (135-145) mmol/L Potassium 4.0 (3.3-5.1) mmol/L Chloride 106 (96-108) mmol/L Carbon Dioxide 24 (22-29) mmol/L Anion Gap 13 (12-20) BUN 13 (9-16) mg/dL Creatinine 0.71 (0.5-1.4) mg/dL Estim Creat Clear Calc 76.9 Estimated GFR > 60 Random Glucose 111 (60-115) mg/dL Calcium 9.6 (8.4-10.2) mg/dL Total Bilirubin 0.7 (0.0-1.0) mg/dL AST 39 H (5-37) U/L ALT 53 H (0-40) U/L Alkaline Phosphatase 95 (39-117) U/L Total Protein 7.0 (6.5-8.0) g/dL Albumin 4.5 (3.5-5.0) g/dL Lipase 23 (8-78) U/L Urine Color Yellow Urine Appearance Clear Urine pH 5.5 (5.0-9.0) Ur Specific [place] >= 1.030 H (1.005-1.025) Urine Protein Negative (Neg-Trace) mg/dL Urine Glucose (UA) Negative (Negative) mg/dL Urine Ketones Negative (Negative) mg/dL Urine Blood Trace H (Negative) Urine Nitrite Negative (Negative) Ur Leukocyte Esterase Negative (Negative) Urine RBC 3-5 H (0-2) /HPF Urine WBC 0-5 (0-5) /HPF Ur Squamous Epith Cells 0-2 (0-2) /HPF Urine Bacteria None Seen (None Seen) Hyaline Casts 0-2 (0-2) /LPF Independent Interpretation I performed an independent interpretation of an: CT Scan Interpretation: ct a/p without bowel obstructoin or colonic wall thickening Radiology Impression Discussion of test interpretation with radiology: I have reviewed the radiologist's reading. Radiologist Impression: Procedure(s): CT abdomen pelvis w IV con Accession Number(s): [id number] cc: Nikos Villasenor MD; Amelia Hilliard~ Report Number: [id number]: Total DLP = 277.00 mGy-cm Reason for Exam: diarrhea x1 mo, hx prostate cancer CLINICAL HISTORY: diarrhea x1 mo, hx prostate cancer CT abdomen and pelvis with contrast Comparison: None provided Findings: No consolidation or effusion. Unremarkable gallbladder and solid organs. No urolithiasis. No bowel obstruction, pneumoperitoneum, or pneumatosis. There are diverticula in the descending and sigmoid colon without imaging evidence of diverticulitis. Urinary bladder wall is concentrically thickened. Correlate for cystitis. Pelvic contents are otherwise unremarkable. Normal appendix. The bones are intact. IMPRESSION: Possible cystitis. Correlate clinically. This document has been electronically signed by: Howard Moreno MD on 08/11/2025 12:05:32 External Record Review External record reviewed: Inpatient record, Office record and Outpatient record Social Determinants Patient?s care significantly limited by Social Determinants of Health including: Other Social Determinant of Health Critical Care Time Critical Care Time Critical Care Time: No Discharge Plan Discharge Clinical Impression: Diarrhea Patient Disposition: Home, Self-Care Instructions: Acute Diarrhea (ED) Additional Instructions: You were evaluated in the ED today for 1 month of diarrhea. Your blood work is reassuring. Your urine is not infected. The CT scan of your abdomen/pelvis does not reveal any acute abnormalities. At this point, the next step for you is to get a colonoscopy. Please follow up with your GI doctor, call them Tuesday morning to make an appointment. Continue Imodium as needed at home for your loose stools. Try to avoid any triggering foods. Return with new or worsening symptoms. In the case of an emergency call 911 Prescriptions: No Action tranexamic acid 650 mg tablet 650 mg PO DAILY 14 Days Qty: 14 0RF atorvastatin 80 mg tablet 80 mg PO BEDTIME 90 Days Qty: 90 3RF aspirin 81 mg tablet,delayed release (DR/EC) 81 mg PO DAILY 90 Days Qty: 90 3RF nystatin 100,000 unit/gram cream 1 appl topical TID Qty: 30 2RF cholecalciferol (vitamin D3) 50 mcg (2,000 unit) capsule 50 mcg PO DAILY 90 Days Qty: 90 3RF valacyclovir 1 gram tablet 1,000 mg PO BID 10 Days Qty: 20 0RF hydrocortisone 2.5 % cream 1 appl topical TID PRN (Reason: skin irritation) Qty: 28 0RF omeprazole 20 mg capsule,delayed release(DR/EC) 20 mg PO DAILY bisacodyl [Dulcolax (bisacodyl)] 5 mg tablet,delayed release (DR/EC) 20 mg PO ONCE 1 Days Qty: 4 0RF Rx Instructions: take 4 tabs at noon the day before your colonoscopy polyethylene glycol 3350 [Miralax] 17 gram/dose powder 238 g PO ONCE Qty: 238 0RF Rx Instructions: As directed by gastroenterology department at [facility] cyclobenzaprine 10 mg tablet 10 mg PO BEDTIME Qty: 10 0RF diclofenac sodium 75 mg tablet,delayed release (DR/EC) 75 mg PO BID 10 Days Qty: 20 0RF ezetimibe [Zetia] 10 mg tablet 10 mg PO DAILY Qty: 90 3RF clobetasol 0.05 % cream 1 appl topical DAILY Referrals: [facility] Gastroenterology Services [Provider Group, Gastroenterology] Nikos Villasenor MD [Primary Care Provider, Internal Medicine] Interventions: ED Discharge Assessment Last Done: 08/11/25 13:32 Discharge Date/Time: 08/11/25 13:46 Print Language: Venezuelan
[2025-08-11 10:38] LABS: MANUAL DIFF FLAG NO
[2025-08-11 10:40] LABS: Hematocrit 45.3 % (42.0-52.0); Hemoglobin 15.8 g/dl (14.0-18.0); Imm Gran Abs Auto 0.04 X10*3/uL (0.00-0.03); Imm Gran Pct Auto 0.4 % (0.0-0.4); Lymphocytes Absolute Auto 1.1 X10*3/uL (1.2-4.9); Mean Corpuscular HGB Conc 34.9 g/dl (31.0-36.0); Mean Corpuscular Hemoglobin 31.9 pg (27.0-33.0); Mean Corpuscular Volume 91.5 fL (80.0-98.0); NRBC Abs Auto 0.000 X10*3/uL (0.0-0.012); NRBC Pct Auto 0.0 /100WBC (0.0-0.2); Platelet Count 293 X10*3/uL (160-400); Red Blood Count 4.95 X10*6/uL (4.60-5.80); White Blood Count 9.7 X10*3/uL (4.8-10.8)
[2025-08-11 10:53] LABS: Alanine Aminotransferase 53 U/L (0-40); Albumin Level 4.5 g/dL (3.5-5.0); Alkaline Phosphatase 95 U/L (39-117); Anion Gap 13 (12-20); Aspartate Amino Transferase 39 U/L (5-37); Blood Urea Nitrogen 13 mg/dL (9-16); Calcium 9.6 mg/dL (8.4-10.2); Carbon Dioxide 24 mmol/L (22-29); Chloride 106 mmol/L (96-108); Creatinine Clr Calc Pharmacy 76.9; Estimated Glomerular Filt Rate > 60; Lipase 23 U/L (8-78); Potassium 4.0 mmol/L (3.3-5.1); Sodium 139 mmol/L (135-145); Total Protein 7.0 g/dL (6.5-8.0)
[2025-08-11] MEDS: iohexoL 350 MG/ML 100 ML INFUS..BTL IV (11:07)
[2025-08-11 11:42] VITALS: BP 161/86; PULSE 74; RESP 16; TEMP 36.6; O2SAT 98
[2025-08-11 12:59] LABS: Appearance Urine Clear; PH 5.5 (5.0-9.0)
[2025-08-11 13:00] LABS: Glucose Urine UA Negative (Negative); Specific Gravity - Urine >= 1.030 (1.005-1.025); UMIC TRIGGER UACC YES
[2025-08-11 13:32] VITALS: BP 161/86; PULSE 74; RESP 16; TEMP 36.6; O2SAT 98
== END 2025-08-11 13:46 | disposition home or self-care (01) ==
PROVIDERS: Physician Assistant Medical; Emergency Provider Emergency Medicine; PCP Internal Medicine
DX: R11.2 Nausea with vomiting, unspecified (principal); R19.7 Diarrhea, unspecified; R11.0 Nausea; R10.2 Pelvic and perineal pain; Z79.899 Other long term (current) drug therapy
CPT/HCPCS: 36415; 74177; 80053; 81001; 81003; 83690; 85025; 96360; 99284; 99285; Q9967

== ENCOUNTER → 2025-08-11 10:27 | Outpatient (BNV) | payer BC, SELFPAY | PROVIDERS: Emergency Provider Emergency Medicine; PCP Internal Medicine; Visit Provider Specialist | DX: K57.30 Diverticulosis of large intestine without perforation or abscess without bleeding (principal) | CPT/HCPCS: 74177 ==

== ENCOUNTER 2025-10-05 07:18 | Outpatient (REF) | payer MEDICARE, SELFPAY ==
--- OUTSIDE RECORDS SUMMARY | 2025-10-05 07:21 | XMS_ITS | Clinical Summary ---
Author Organization [facility] Address [address] [place] [address] Phone Care Team Providers Care Dairy Technologist Name Role Phone Nikos Villasenor MD Primary Care Provider [phone] Allergies No known active allergies Medications cimetidine [...] Not on file Insurance HMO [address] [place], [place] [id number] [place], [place] [address]O O O HMO HMO Care Teams Dairy Technologist Relationship Specialty Start Date End Date Nikos Villasenor MD [address] [place] [address] Dr Cisneros [address] [place] [id number] PCP - General Internal Medicine 09/06/19 Additional Source Comments The information contained in this document represents components of the legal health record. It is not the complete legal health record.[facility]
[2025-10-05 09:05] LABS: Hematocrit 45.9 % (42.0-52.0); Hemoglobin 15.4 g/dl (14.0-18.0); Imm Gran Abs Auto 0.03 X10*3/uL (0.00-0.03); Imm Gran Pct Auto 0.5 % (0.0-0.4); Lymphocytes Absolute Auto 1.1 X10*3/uL (1.2-4.9); MANUAL DIFF FLAG NO; Mean Corpuscular HGB Conc 33.6 g/dl (31.0-36.0); Mean Corpuscular Hemoglobin 31.2 pg (27.0-33.0); Mean Corpuscular Volume 93.1 fL (80.0-98.0); NRBC Abs Auto 0.000 X10*3/uL (0.0-0.012); NRBC Pct Auto 0.0 /100WBC (0.0-0.2); Platelet Count 296 X10*3/uL (160-400); Red Blood Count 4.93 X10*6/uL (4.60-5.80); White Blood Count 6.6 X10*3/uL (4.8-10.8)
[2025-10-05 09:07] LABS: Appearance Urine Clear; Glucose Urine UA Negative (Negative); PH 6.0 (5.0-9.0); Specific Gravity - Urine 1.020 (1.005-1.025); UMIC TRIGGER UACC YES
[2025-10-05 09:56] LABS: Alanine Aminotransferase 41 U/L (0-40); Albumin Level 4.5 g/dL (3.5-5.0); Alkaline Phosphatase 79 U/L (39-117); Anion Gap 12 (12-20); Aspartate Amino Transferase 36 U/L (5-37); Blood Urea Nitrogen 13 mg/dL (9-16); Calcium 9.2 mg/dL (8.4-10.2); Carbon Dioxide 27 mmol/L (22-29); Chloride 106 mmol/L (96-108); Cholesterol 128 mg/dL (<200); Estimated Glomerular Filt Rate > 60; HDL Cholesterol 55 mg/dL (>40); Potassium 3.9 mmol/L (3.3-5.1); Sodium 141 mmol/L (135-145); Total Protein 6.5 g/dL (6.5-8.0); Triglycerides 85 mg/dL (<150)
[2025-10-05 10:25] LABS: Vitamin B12 356 pg/mL (200-900)
[2025-10-05 11:04] LABS: Folate 10.0 ng/mL (> or = 4.0)
== END 2025-10-05 07:19 | disposition home or self-care (01) ==
LOC: HO.LAB 07:18
PROVIDERS: PCP Internal Medicine; Visit Provider Internal Medicine
DX: E53.8 Deficiency of other specified B group vitamins (principal); D64.9 Anemia, unspecified; E78.00 Pure hypercholesterolemia, unspecified; E55.9 Vitamin D deficiency, unspecified; R73.01 Impaired fasting glucose
CPT/HCPCS: 36415; 80053; 80061; 81001; 81003; 82306; 82607; 82746; 83036; 84443; 85025

== ENCOUNTER 2025-10-09 16:00 | Outpatient (AMB) | payer MEDICARE, SELFPAY ==
[2025-10-09 16:25] VITALS: BP 98/68; PULSE 79; TEMP 36.4; O2SAT 97; BMI 27.5
--- NOTE | 2025-10-09 16:25 | MHC.PC.OV ---
Vital Signs 10/09/25 16:25 Height 5 ft 5 in Weight 165 lb 6 oz BMI 27.5 BP 98/68 Blood Pressure Location Lt brachial Position Sitting Pulse 79 Pulse Source Pulse Oximeter Temp 97.5 F Temp Source Temporal Artery Scan Pulse Oximetry (%) 97 Oxygen Delivery Method Room Air Intake Visit Reasons: hyperlipidemia, CAD, GERD, Hx prostate cancer Allergies No Known Allergies Allergy (Mild, Verified 10/09/25 17:14) NKA Medication List - Last Reconciled 10/09/25 by Nikos Villasenor MD aspirin 81 mg PO DAILY 90 days atorvastatin 80 mg PO BEDTIME 90 days bisacodyl (Dulcolax (bisacodyl)) 20 mg (4 x 5 mg) PO ONCE 1 day cholecalciferol (vitamin D3) 50 mcg PO DAILY 90 days clobetasol 0.05% 1 appl topical DAILY cyclobenzaprine 10 mg PO BEDTIME diclofenac sodium 75 mg PO BID 10 days ezetimibe (Zetia) 10 mg PO DAILY hydrocortisone 2.5% 1 appl topical TID PRN nystatin 1 appl topical TID omeprazole 20 mg PO DAILY polyethylene glycol 3350 (Miralax) 238 grams PO ONCE tranexamic acid 650 mg PO DAILY 14 days valacyclovir 1,000 mg PO BID 10 days Tobacco use date assessed: 10/09/25 Fall risk assessment: No Falls in past year Last assessed Fall Risk: 10/09/25 Dental Screening Dental Screen Date: 10/09/25 Did you have a dental visit in the last 12 months?: Yes Did you have a dental problem in the last 6 months where you did not have access to dental care?: No Was dental information given to patient?: Patient has dentist HPI hyperlipidemia, CAD, GERD, Hx prostate cancer HPI Details Patient comes in today for his follow up visit States that he's had recurrent diarrhea for a few weeks now and this is still ongoing Relates that his diarrhea will start usually after he's had his morning coffee and he would end up having on average at least 5 episodes of loose stools a day He has not noticed any blood in his stool and he denies any nausea or vomiting lately He would experience some abdominal cramping pain at times and this would usually be relieved once he moves his bowels He has been seen by GI and is now scheduled to undergo EGD and colonoscopy next month (October 2025) He denies any fever; denies any headaches but reports feeling dizzy and lightheaded on and off lately Denies any chest pains, no increased SOB He had his follow up labs done a few days ago - to discuss his results [facility] Medical History Vitamin D deficiency Colonoscopy refused Overweight (BMI 25.0-29.9) Pure hypercholesterolemia Hx of coronary angiogram Insomnia Coronary atherosclerosis Prostate cancer GERD (gastroesophageal reflux disease) Surgical History S/P drug eluting coronary stent placement (~03/25/23) Stented coronary artery History of right inguinal hernia repair (~04/2009) History of inguinal hernia repair History of tonsillectomy and adenoidectomy Family History Father No problems noted. Mother No problems noted. Social History Housing: Apartment Patient Tobacco Use Status: Never used Tobacco Tobacco use type: Cigarette e-Cigarette/Vaping Use: Never Used Second Hand Smoke Exposure: No service: No Current occupational status: employed Cognitive needs: No Hearing needs: No Vision needs: No Questionnaire PHQ-9 Over the last 2 weeks, how often have you been bothered by any of the following problems? 1. Little interest or pleasure in doing things: not at all 2. Feeling down, depressed, or hopeless: not at all 3. Trouble falling or staying asleep, or sleeping too much: not at all 4. Feeling tired or having little energy: not at all 5. Poor appetite or overeating: not at all 6. Feeling bad about yourself - or that you are a failure or have let yourself or your family down: not at all 7. Trouble concentrating on things, such as reading the newspaper or watching television: not at all 8. Moving or speaking so slowly that other people could have noticed. Or the opposite - being so fidgety or restless that you have been moving around a lot more than usual: not at all 9. Thoughts that you would be better off or of hurting yourself in some way: not at all Total score: 0 Depression Screening Interpretation: Negative Depression Screening Done: Yes 12351 - PHQ-9 Billing: Yes Source: Developed by Drs. Amadou Canas, Katharine Lamb, Walter Gupta and colleagues, with an educational aimee from [employer]. Thrive Questionnaire Date Thrive assessed: 06/10/25 I am a: Patient What is your living situation today?: I have a steady place to live Within the past 12 months, did the food you bought not last and you didn't have the money to get more?: Never true Within the past 12 months, did you worry whether your food would run out before you got money to buy more?: Never true Do you have trouble paying for medicines?: No Do you have trouble getting transportation to medical appointments?: No Do you have trouble paying your heating and electricity bill?: No Do you have trouble taking care of your child, family member or friend?: I choose not to answer this question Do you have trouble with day-to-day activities such as bathing, preparing meals, shopping, managing finances, etc.?: I choose not to answer this question Are you currently unemployed and looking for a job?: I choose not to answer this question Are you interested in more education?: I choose not to answer this question Please select the resources that you would like help with: None Currently or been in a relationship where the following occur: I choose not to answer THRIVE Score: 0 AUDIT C Alcohol Use Questionnaire (AUDIT-C) 1. How often do you have a drink containing alcohol?: 4 or more times a week 2. How many drinks containing alcohol do you have on a typical day when you are drinking?: 3 or 4 3. How often do you have six or more drinks on one occasion?: Monthly Total Score: 7 Score Reviewed/Action Taken: Yes RAUL-7 AMB Questionnaire RAUL-7 Date RAUL - 7 assessed: 01/29/25 Feeling nervous, anxious, or on edge: 0 = Not at all Not being able to stop or control worryin = Not at all Worrying too much about different things: 0 = Not at all Trouble relaxin = Not at all Being so restless that it is hard to sit still: 0 = Not at all Becoming easily annoyed or irritable: 0 = Not at all Feeling afraid as if something awful might happen: 0 = Not at all Total RAUL-7 score (0-4 normal; 5-9 mild; 10-14 moderate; 15-21 severe): 0 Source: Developed by Drs. Amadou Canas, Katharine Lamb, Walter Gupta and colleagues, with an educational aimee from [employer]. Review of Systems Const Denies chills, Reports difficulty sleeping (chronic), Reports fatigue, Denies fever(s) and Denies headache(s) ENT Denies dysphagia, Reports dizziness (on and off), Denies otalgia, Denies headache(s), Denies neck pain, Denies odynophagia and Denies sore throat Card Denies chest pain, Denies palpitations and Denies dyspnea Resp Denies chest congestion, Denies cough and Denies dyspnea GI Reports abdominal pain (on and off cramping pain, usually relieved with bowel movements), Reports hematochezia (occasionally), Denies dysphagia, Reports heartburn, Reports diarrhea (on and off), Reports loose stools (on and off), Denies nausea, Denies odynophagia and Denies vomiting Reports hematuria (occasionally), Denies dysuria, Denies nocturia, Denies urinary frequency and Reports urinary urgency (occasionally) Musc Denies back pain and Denies neck pain Skin/Breast Reports lesions ((+) scattered scaling lesions) and Denies rash Neuro Reports dizziness (on and off) and Denies headache(s) Psych Denies depression Endo Reports fatigue and Denies palpitations Physical exam (Primary Care) Vital Signs: Last Vital Signs Temp 97.5 F 10/09/25 16:25 Pulse 79 10/09/25 16:25 BP 98/68 10/09/25 16:25 Pulse Ox 97 10/09/25 16:25 Oxygen Delivery Method Room Air 10/09/25 16:25 BMI result Body Mass Index 27.5 Tobacco/Smoking Status: Tobacco use Status Tobacco use date assessed 10/09/25 10/09/25 16:29 Patient Tobacco Use Status Never used Tobacco 10/09/25 16:29 Tobacco use type Cigarette 10/09/25 16:29 e-Cigarette/Vaping Use Never Used 10/09/25 16:29 PHQ-9: PHQ-9 Score PHQ-9: Total score 0 10/09/25 17:17 Depression Screening Interpretation: Negative Thrive Assessment: Date of Thrive Assessment Date Thrive assessed 06/10/25 10/09/25 16:29 Currently or been in a relationship where the following occur: I choose not to answer Const General: no acute distress and alert HENMT Ears: TM's normal bilaterally and EAC's normal Throat: Yes posterior oropharynx normal and Yes tonsils normal (no TP congestion) Neck Neck: Yes supple and No lymphadenopathy Thyroid: Thyroid normal Resp Auscultation: clear to auscultation bilaterally, no rales and no wheezes Cardio Rate: regular rate Rhythm: regular rhythm Heart sounds: no murmurs GI Palpation (GI): Soft to palpation and nontender Auscultation: normal bowel sounds General: Yes no CVA tenderness Back/Spine/Pelvis Back: no CVA tenderness Skin Lesions: lesion noted (scattered scaling skin lesions) Rashes: no rashes Extrem General: Yes no clubbing, cyanosis or edema Results Reviewed Results Reviewed: Laboratory Tests 10/05/25 10/05/25 07:27 07:41 WBC 6.6 Hgb 15.4 Hct 45.9 Plt Count 296 Sodium 141 Potassium 3.9 Creatinine 0.70 Estimated GFR > 60 Fasting Glucose 100 H Hemoglobin A1c % 6.1 H Calcium 9.2 AST 36 ALT 41 H Triglycerides 85 Cholesterol 128 LDL Cholesterol, Calc 56 HDL Cholesterol 55 Vitamin B12 356 25-OH Vitamin D Total 23.7 L TSH 1.19 Ur Specific Dunbar 1.020 Urine Protein Trace Urine Glucose (UA) Negative Urine Blood Moderate (2+) H Urine Nitrite Negative Ur Leukocyte Esterase Negative Coding Level of Care Code Est Pt Level 4 (71358) Diagnoses Atherosclerosis of [place] coronary artery of [place] heart without angina pectoris I25.10 Coronary Disease-Associated Artery/Lesion type: [place] artery [place] vs. transplanted heart: [place] heart Associated angina: without angina Pure hypercholesterolemia E78.00 Diarrhea, unspecified type R19.7 Diarrhea type: unspecified type Dizziness R42 Prostatic adenocarcinoma C61 Hypotestosteronism E34.9 Gastroesophageal reflux disease without esophagitis K21.9 Esophagitis presence: without esophagitis Vitamin D deficiency E55.9 History of herpes genitalis Z86.19 Insomnia, unspecified type G47.00 Insomnia type: unspecified Overweight (BMI 25.0-29.9) E66.3 Additional Codes PHQ-9 - 03608 - PHQ-9 Billing: Yes ([id number]) Assessment & Plan Assessment & Plan (1) Coronary atherosclerosis: Code(s): I25.10 - Atherosclerotic heart disease of [place] coronary artery without angina pectoris Category: Medical Qualifiers: Coronary Disease-Associated Artery/Lesion type: [place] artery [place] vs. transplanted heart: [place] heart Associated angina: without angina Qualified Code(s): I25.10 - Atherosclerotic heart disease of [place] coronary artery without angina pectoris Plan: S/P NSTEMI in 02/2023; S/P KERRY to proximal OM1 Continue Clopidogrel 75 mg QD, Aspirin 81 mg QD and Metoprolol 12.5 mg BID He is currently asymptomatic from a cardiac standpoint and just had a negative stress test done earlier this year Follow up with cardiology as scheduled (2) Pure hypercholesterolemia: Code(s): E78.00 - Pure hypercholesterolemia, unspecified Category: Medical Plan: Results of his labs done a few days ago reviewed and discussed with patient Reinforced low-cholesterol diet Continue Atorvastatin 80 mg QD and Ezetimibe 10 mg QD Will recheck his labs and fasting lipids in 3 months for follow-up (3) Diarrhea: Code(s): R19.7 - Diarrhea, unspecified Category: Medical Qualifiers: Diarrhea type: unspecified type Qualified Code(s): R19.7 - Diarrhea, unspecified Plan: Unknown etiology (suspect colitis or some type of malabsorption syndrome) and this has been going on for months now He is now seeing GI for this and is scheduled for EGD and colonoscopy next month for further evaluation (4) Dizziness: Code(s): R42 - Dizziness and giddiness Category: Medical Plan: Patient's blood pressure is noted to be low currently and this may be the reason for his recurrent dizziness lately This is likely due to dehydration/hypovolemia - patient is encouraged to make sure he drinks plenty of fluids daily to stay hydrated Patient is instructed to call if his dizziness persists or gets worse (5) Prostatic adenocarcinoma: Comment: high-grade, initial therapy external beam radiation with GnRH Code(s): C61 - Malignant neoplasm of prostate Category: Medical Plan: S/P initial Tx with external beam radiation to prostate and to the pelvic lymph nodes with Bicalutamide Continue Eligard 45 mg Q 6 months and Finasteride 5 mg QD Follow up with urology as scheduled for continuing management and surveillance (6) Hypotestosteronism: Code(s): E34.9 - Endocrine disorder, unspecified Category: Medical Plan: Have advised patient that his testosterone level is very low on his recent labs but this is expected because he is on Tx with GnRH for his prostate cancer Follow up with urology as scheduled regarding this (7) GERD (gastroesophageal reflux disease): Code(s): K21.9 - Gastro-esophageal reflux disease without esophagitis Category: Medical Qualifiers: Esophagitis presence: without esophagitis Qualified Code(s): K21.9 - Gastro-esophageal reflux disease without esophagitis Plan: Dietary restrictions reinforced Continue Famotidine 10 mg QD PRN Follow up with GI as scheduled (8) Vitamin D deficiency: Code(s): E55.9 - Vitamin D deficiency, unspecified Category: Medical Plan: Continue OTC Vitamin D3 2000 units QD (9) History of herpes genitalis: Code(s): Z86.19 - Personal history of other infectious and parasitic diseases Category: Medical Plan: Continue episodic Tx with Valtrex 1 gm BID x 10 days ONLY if he has acute flare ups of genital herpes (10) Insomnia: Code(s): G47.00 - Insomnia, unspecified Category: Medical Qualifiers: Insomnia type: unspecified Qualified Code(s): G47.00 - Insomnia, unspecified Plan: Sleep hygiene reinforced Continue Trazodone 50 mg Q HS PRN (11) Overweight (BMI 25.0-29.9): Code(s): E66.3 - Overweight Category: Medical Plan: Reinforced diet/exercise as tolerated/lose weight Plan Follow up in 3 months Orders: Orders Hemoglobin A1c 3 Months E11.9 - Type 2 diabetes mellitus without complications Lipid Panel 3 Months E78.00 - Pure hypercholesterolemia, unspecified Vitamin B12 and Folate 3 Months E53.8 - Deficiency of other specified B group vitamins Vitamin D 25-OH Total 3 Months E55.9 - Vitamin D deficiency, unspecified Complete Blood Count Auto Diff 3 Months D64.9 - Anemia, unspecified Comprehensive Datil. Panel Fast 3 Months E78.00 - Pure hypercholesterolemia, unspecified TSH reflex Free T4 3 Months E78.00 - Pure hypercholesterolemia, unspecified UA CC w/rflx Micro + Cult 3 Months R30.0 - Dysuria
--- OUTSIDE RECORDS SUMMARY | 2025-10-09 18:54 | XMS_ITS | Clinical Summary ---
Author Organization [facility] Address [address] [place] [address] Phone Care Team Providers Care Area Counselor Name Role Phone Nikos Villasenor MD Primary Care Provider [phone] Allergies No known active allergies Medications cimetidine [...] Not on file Insurance [place]MO [address] [place], [place] [address] [place], [place] [address]O O O HMO HMO Care Teams Area Counselor Relationship Specialty Start Date End Date Nikos Villasenor MD [address] [place] [address] Dr Cisneros [address] [place] [id number] PCP - General Internal Medicine 09/06/19 Additional Source Comments The information contained in this document represents components of the legal health record. It is not the complete legal health record.[facility]
== END 2025-10-09 17:37 | disposition home or self-care (01) ==
LOC: HO.HMCH 16:01
PROVIDERS: PCP Internal Medicine; Visit Provider Internal Medicine
DX: I25.10 Atherosclerotic heart disease of native coronary artery without angina pectoris (principal); E78.00 Pure hypercholesterolemia, unspecified; C61 Malignant neoplasm of prostate; R19.7 Diarrhea, unspecified; E66.3 Overweight; Z68.27 Body mass index [BMI] 27.0-27.9, adult; R42 Dizziness and giddiness; E34.9 Endocrine disorder, unspecified; K21.9 Gastro-esophageal reflux disease without esophagitis; E55.9 Vitamin D deficiency, unspecified; Z86.19 Personal history of other infectious and parasitic diseases; G47.00 Insomnia, unspecified

== ENCOUNTER → 2025-10-09 16:00 | Outpatient (BNVA) | payer MEDICARE, SELFPAY | PROVIDERS: PCP Internal Medicine; Visit Provider Internal Medicine | DX: I25.10 Atherosclerotic heart disease of native coronary artery without angina pectoris (principal); R19.7 Diarrhea, unspecified; E78.00 Pure hypercholesterolemia, unspecified; R10.9 Unspecified abdominal pain; R42 Dizziness and giddiness; C61 Malignant neoplasm of prostate; E34.9 Endocrine disorder, unspecified; K21.9 Gastro-esophageal reflux disease without esophagitis; E55.9 Vitamin D deficiency, unspecified; G47.00 Insomnia, unspecified; E66.3 Overweight; Z86.19 Personal history of other infectious and parasitic diseases; Z68.27 Body mass index [BMI] 27.0-27.9, adult | CPT/HCPCS: 96127; 99212 ==

== ENCOUNTER 2025-10-22 16:18 | Outpatient (REF) | payer MEDICARE, SELFPAY ==
[2025-10-22 17:37] LABS: Appearance Urine Clear; Glucose Urine UA Negative (Negative); PH 6.0 (5.0-9.0); Specific Gravity - Urine 1.020 (1.005-1.025); UMIC TRIGGER UACC YES
[2025-10-22 18:04] LABS: Prostate Specific Antigen < 0.10 ng/mL (<0.05-4.0)
--- OUTSIDE RECORDS SUMMARY | 2025-10-22 19:29 | XMS_ITS | Clinical Summary ---
Author Organization [facility] Address [address] [place] [address] Phone Care Team Providers Care Water Jet Operator Name Role Phone Nikos Villasenor MD Primary Care Provider [phone] [phone] Allergies No known active allergies Medications cimetidine [...] Medical Devices Not on file Insurance [place]MO [address] [place], [place] [address] [place], [place] [address] [place] [address] HMO O O HMO HMO Care Teams Water Jet Operator Relationship Specialty Start Date End Date Nikos Villasenor MD [address] [place] [address] Dr Cisneros [address] [place] [id number] PCP - General Internal Medicine 09/06/19 Additional Source Comments The information contained in this document represents components of the legal health record. It is not the complete legal health record.[facility]
== END 2025-10-22 16:19 | disposition home or self-care (01) ==
LOC: HO.LAB 16:18
PROVIDERS: PCP Internal Medicine; Visit Provider Urology
DX: Z12.5 Encounter for screening for malignant neoplasm of prostate (principal); C61 Malignant neoplasm of prostate
CPT/HCPCS: 36415; 81001; 84153; 84403

== ENCOUNTER 2025-11-08 15:18 | Outpatient (AMB) | payer MEDICARE, SELFPAY ==
--- NOTE | 2025-11-08 15:31 | A.OFFVIS_ITS ---
Intake Visit Reasons: 6m/PSA/Testo(set) Intake Note: Reason for Visit: Telehealth PSA/Testosterone Results Urology Meds: None Blood Thinners: Aspirin Labs: PSA- <0.10 Testosterone: 109 (10/22/2025) A1C: 6.1 (10/05/2025) Imaging: None Last PVR: None Allergies No Known Allergies Allergy (Mild, Verified 10/09/25 17:14) NKA HPI Comments Details: Narayan is a patient male. He is a patient of Dr. Villasenor. He is seen for following urologic conditions - prostate cancer - radiation oncology [facility] Telemedicine Evaluation 15 min Consultation Screamin Daily Deals [place] Video Interval follow-up - PSA stable, T continued recovery Occasional rectal blood but not persistent Hot flashes resolved Move to six-month follow-up surveillance Labs 07/20 P 0.12, T 26, 09/19 GnRH, 01/21 <0.1 4, 04/20 PSA <0.1, T 5, 08/21 PSA <0.1 T 7, 04/21 <0.1 T 62, 10/22 <0.1 T 110 10/[address] Jade Pompa 7800 Gy 39 fractions prostate and pelvis GnRH 02/17, 09/19 Had heart attack in January 2023 after GnRH injection Prostate Cancer - 02/17 - high volume, high risk - 1st GnRH 03/20 - EXBRT with radiation MAB during therapy completed 10/20 (bicalutamide, finasteride, GnRH) Dr Jade Pompa PSA at diagniosis 15 Histologic type: Prostatic acinar adenocarcinoma: Giuliana score: 3+4+7 (F); 4+3+7 (A, C, D, E,J and L); 4+4=8 (H, I, K); 4+5=9 (B) Total Cores 12 Positive Cores 12 % volume 910/1200 Periprostatic fat inv.: Not identified Seminal vesicle inv.: Not identified Perineural inv.: Present LVI: Not identified Clinical T2c - JAYANT bilateral prostate firmness Initial Staging - 02/17 bone scan degenerative changes consistent with arthritis. No evidence of metastatic prostate cancer - 03/20 CT scan pelvis no evidence of lymphadenopathy, no evidence of metastatic disease PFSH Medical History Vitamin D deficiency Colonoscopy refused Overweight (BMI 25.0-29.9) Pure hypercholesterolemia Hx of coronary angiogram Insomnia Coronary atherosclerosis Prostate cancer GERD (gastroesophageal reflux disease) Surgical History S/P drug eluting coronary stent placement (~03/25/23) Stented coronary artery History of right inguinal hernia repair (~04/2009) History of inguinal hernia repair History of tonsillectomy and adenoidectomy Family History Father No problems noted. Mother No problems noted. Social History Housing: Apartment Patient Tobacco Use Status: Current everyday Tobacco user Tobacco use type: Cigarette e-Cigarette/Vaping Use: Never Used Second Hand Smoke Exposure: No service: No Current occupational status: employed Cognitive needs: No Hearing needs: No Vision needs: No Review of Systems Const All systems reviewed & are unremarkable except as noted in HPI and below Reports no additional complaints Resp Reports no additional complaints GI Reports no additional complaints Reports as per HPI Musc Reports no additional complaints Physical Exam Telemedicine evaluation Appropriate responses Regular breathing rate and rhythm HEENT Head: Yes normal to inspection Ears: hearing grossly normal bilaterally Eyes General: appearance normal, both eyes and all related structures Neck Neck: Yes normal visual inspection Chest Chest palpation & inspection: normal inspection of the chest Resp Effort & Inspection: normal respiratory effort and able to speak in complete sentences Telehealth Telehealth Telehealth Platform: [facility] Location of provider rendering services: practice address Location of patient: address on file Patient Identification confirmed using: Name, : Yes Telehealth method: video Patient verbally consented to treatment: Yes Patient verbally consented to billing insurance company: Yes Patient informed of any privacy concerns related to visit: Yes Minutes spent on Phone/Video with Pt.: 15 Assessment & Plan Assessment & Plan (1) Prostate cancer: Comment: 02/17 high-grade, high-volume Code(s): C61 - Malignant neoplasm of prostate Category: Medical (2) Dysuria: Code(s): R30.0 - Dysuria Category: Medical Plan Move to six-month interval surveillance Orders: Orders Testosterone, Total 5 Months C61 - Malignant neoplasm of prostate Estrad Free (Tot Ultra + Free) 5 Months C61 - Malignant neoplasm of prostate Lutenizing Hormone 5 Months C61 - Malignant neoplasm of prostate Prostate Specific Antigen 5 Months C61 - Malignant neoplasm of prostate Patient Instructions: This note is constructed using voice recognition software. While every effort has been made to ensure accuracy mva still operator errors may have been included. Imaging studies, laboratory and physical exam results were discussed and reviewed in detail. No major barriers to patient understanding were identified. An opportunity to ask questions regarding the treatment plan was provided. All questions were answered. The patient expressed understanding and agreement with the above treatment plan. The patient is aware they should contact our office by phone for worsening of their current condition or the appearance of new urologic symptoms. Compliance is encouraged with any medications and followup testing that is ordered. It is a privilege to participate in the urologic care of your patient. If you have any questions or concerns regarding treatment for the above conditions, or other urologic issues, please do not hesitate to contact me. The office telephone contact is [phone]. Sincerely, Dr Ac Velasquez MD, [facility] - Urology Compassionate Specialist Care for the Genitourinary System Coding Level of Care Code Tele Est Pt Level 3 (04139) Add On Problem Visit Only Diagnoses Prostate cancer C61 Dysuria R30.0
--- OUTSIDE RECORDS SUMMARY | 2025-11-08 20:12 | XMS_ITS | Clinical Summary ---
Author Organization [facility] Address [address] [place] [id number] Phone Care Team Providers Care Shank Cutter Name Role Phone Nikos Villasenor MD Primary Care Provider [phone] [phone] Allergies No known active allergies Medications cimetidine [...] Medical Devices Not on file Insurance [place] [address] [place], [place] [address] [place], [place] [address] [address] HMO O O HMO HMO Care Teams Shank Cutter Relationship Specialty Start Date End Date Nikos Villasenor MD [address] [place] [address] Dr Cisneros [address] [place] [id number] PCP - General Internal Medicine 09/06/19 Additional Source Comments The information contained in this document represents components of the legal health record. It is not the complete legal health record.[facility]
== END 2025-11-08 16:50 | disposition home or self-care (01) ==
LOC: HO.HUSH 15:18
PROVIDERS: PCP Internal Medicine; Visit Provider Urology
DX: C61 Malignant neoplasm of prostate (principal); R30.0 Dysuria
CPT/HCPCS: 99213; G2211

== ENCOUNTER 2025-11-18 08:09 | Day surgery (SDC) | payer MEDICARE, SELFPAY ==
--- OUTSIDE RECORDS SUMMARY | 2025-10-17 08:18 | XMS_ITS | Clinical Summary ---
Author Organization [facility] Address [address] [place] [id number] Phone Care Team Providers Care Bowling Ball Weigher And Packer Name Role Phone Nikos Villasenor MD Primary Care Provider [phone] Allergies No known active allergies Medications cimetidine [...] Medical Devices Not on file Insurance [place] [address] [place], [place] [address] [place], [place] [address] [address] HMO O O HMO HMO Care Teams Bowling Ball Weigher And Packer Relationship Specialty Start Date End Date Nikos Villasenor MD [address] [place] [address] Dr Cisneros [address] [place] [id number] PCP - General Internal Medicine 09/06/19 Additional Source Comments The information contained in this document represents components of the legal health record. It is not the complete legal health record.[facility]
--- NOTE | 2025-11-13 14:30 | HO.ANESPROP2 ---
Documented by User: Lyudmila Yousif NP 11/13/25 14:38 HPI - Anesthesia Eval Consult details Narrative: 75 yr old male for upper EGD, colonoscopy CAD: S/P NSTEMI in 02/2023; S/P KERRY to proximal OM1 On Clopidogrel 75 mg QD, Aspirin 81 mg QD and Metoprolol 12.5 mg BID Was asymptomatic from a cardiac standpoint at 09/2025 PCP visit and just had a negative stress test done earlier this year Saw [facility] cardiology for 6 month f/u, stable; per note In the most recent echocardiogram preserved LVEF of 56% and no wall motion abnormalities. Overall, seems improved . H/O prostate cancer: S/P initial Tx with external beam radiation to prostate and to the pelvic lymph nodes with Bicalutamide PMFSH Active Problems Active Problems: All Active Problems (Updated 10/10/25 @ 06:44 by Nikos Villasenor MD) Dizziness (Acute) Hyperlipidemia, unspecified (Acute) Muscle spasm (Acute) Acute low back pain (Acute) Pruritus (Acute) Acne (Acute) Vitamin D deficiency (Acute) Arterial hypotension (Acute) Impaired fasting glucose (Acute) Overweight (BMI 25.0-29.9) (Acute) Hypotestosteronism (Acute) Dysuria (Acute) History of herpes genitalis (Acute) Prostatic adenocarcinoma (Acute) Pure hypercholesterolemia (Acute) Prostate cancer (Acute) Stented coronary artery (Acute) Coronary atherosclerosis (Acute) Insomnia (Acute) Abnormal digital rectal exam (Acute) Colon cancer screening (Acute) GERD (gastroesophageal reflux disease) (Acute) Elevated PSA (Acute) Lymphadenopathy of left cervical region (Acute) Annual physical exam (Acute) Allergic conjunctivitis (Acute) Screening for hypercholesterolemia (Acute) Screening for hypothyroidism (Acute) Screening for diabetes mellitus (DM) (Acute) Tinea corporis (Acute) Periorbital dermatitis (Acute) Past Medical History Medical History Vitamin D deficiency Colonoscopy refused Overweight (BMI 25.0-29.9) Pure hypercholesterolemia Hx of coronary angiogram Insomnia Coronary atherosclerosis Prostate cancer GERD (gastroesophageal reflux disease) Family History Family History Father No problems noted. Mother No problems noted. Surgical History Surgical History S/P drug eluting coronary stent placement (~03/25/23) Stented coronary artery History of right inguinal hernia repair (~04/2009) History of inguinal hernia repair History of tonsillectomy and adenoidectomy Social History Social History Housing: Apartment Patient Tobacco Use Status: Current everyday Tobacco user Tobacco use type: Cigarette e-Cigarette/Vaping Use: Never Used Second Hand Smoke Exposure: No Use of substances other than those prescribed or required for medical reasons: No Advance Directives: No Advance Directives Information Provided: Yes service: No Current occupational status: employed Cognitive needs: No Hearing needs: No Vision needs: No Meds Allergies Allergy/AdvReac Type Severity Reaction Status Date / Time No Known Allergies Allergy Mild NKA Verified 10/09/25 17:14 Home Medications ?Medication ?Instructions ?Recorded ?Confirmed ?Last Taken ?Type omeprazole 20 mg capsule,delayed 20 mg PO DAILY 06/04/25 11/14/25 Unknown History release clobetasol 0.05 % topical cream 1 appl topical DAILY 06/10/25 11/14/25 Unknown History Exam Pertinent Lab Results Pertinent Lab Results: Laboratory Tests 10/05/25 07:41 WBC 6.6 RBC 4.93 Hgb 15.4 Hct 45.9 Plt Count 296 Sodium 141 Potassium 3.9 BUN 13 Creatinine 0.70 Narrative Narrative: Exercise Stress Test 01/2025 Exercise Stress Test with exercise 5 mins 55 secs of Jose Protocol, held at Stage 1 with increased speed to 2.5mph, achieving 94% MPHR, with rerpots of mild SOB, no chest pain, with isolated PVCs, with normotensive response to exercise. Without EKG changes meeting criteria for ischemia. In recovery, pt feeling back to baseline. Test reviewed with Dr. Haque. EKG 05/2025 NSR, rate 70s Documented by User: Damaris Shelley MD 11/18/25 08:36 [facility] Past Medical History Medical History Vitamin D deficiency Colonoscopy refused Overweight (BMI 25.0-29.9) Pure hypercholesterolemia Hx of coronary angiogram Insomnia Coronary atherosclerosis Prostate cancer GERD (gastroesophageal reflux disease) Family History Family History Father No problems noted. Mother No problems noted. Family history of problems with anesthesia: No Surgical History Surgical History S/P drug eluting coronary stent placement (~03/25/23) Stented coronary artery History of right inguinal hernia repair (~04/2009) History of inguinal hernia repair History of tonsillectomy and adenoidectomy History of Problems with Anesthesia: No Social History Social History Housing: Apartment Patient Tobacco Use Status: Current everyday Tobacco user Tobacco use type: Cigarette e-Cigarette/Vaping Use: Never Used Second Hand Smoke Exposure: No Use of substances other than those prescribed or required for medical reasons: No Advance Directives: No Advance Directives Information Provided: Yes service: No Current occupational status: employed Cognitive needs: No Hearing needs: No Vision needs: No Meds Allergies Allergy/AdvReac Type Severity Reaction Status Date / Time No Known Allergies Allergy Mild NKA Verified 10/09/25 17:14 Home Medications ?Medication ?Instructions ?Recorded ?Confirmed ?Last Taken ?Type omeprazole 20 mg capsule,delayed 20 mg PO DAILY 06/04/25 11/14/25 Unknown History release clobetasol 0.05 % topical cream 1 appl topical DAILY 06/10/25 11/14/25 Unknown History Exam Airway Mallampati Class: III TM Dist: >3cm Neck ROM: Limited Heart: rrr Lungs: cta Assessment and Plan Assessment Anesthesia Assessment: Anesthesia Plan Discussed and Chart Reviewed Final Anesthetic Review Family History of Problems with Anesthesia: No History of Problems with Anesthesia: No NPO: Yes ASA Class: III Final Preanesthetic Review: No Changes in Pt Med Stat, Meds/Allgs Chart Reviewed, Consent Obtained/Reviewed and Anes Risks/Benef Reviewed Patient Risk: Intermediate Procedure Risk: Low Anesthetic Plan Anesthetic Plan: MAC: and Agree w/ Assess. and Plan Disposition: Standard PACU
[2025-11-14 12:05] VITALS: BMI 25.8
[2025-11-18] VITALS (7 sets, daily range): BP systolic 81–107; BP diastolic 48–71; PULSE 76–84; RESP 14–24; TEMP 36.2–36.6; O2SAT 90–99; BMI 25.1
--- NOTE | ~2025-11-18 | XR_ITS ---
EXAMINATION: XR CHEST CLINICAL INFORMATION: Probable aspiration COMPARISON: None. TECHNIQUE: Frontal view of the chest was obtained. FINDINGS: Lungs are hypoexpanded prominent bilateral interstitial romeo in both lung bases suggestive of scarring or atelectasis. No consolidation or pleural effusion seen. The heart size is normal. Pulmonary vasculature is normal. There is mild dextro scoliosis mid dorsal spine. There is mild spondylosis lower dorsal spine. No aggressive lytic or sclerotic process seen. XR/XR chest 1V IMPRESSION: Suspect bibasilar scarring or atelectasis. Electronically signed by: Betito Bhatt MD 11/18/2025 12:49 PM EST
--- NOTE | 2025-11-18 07:28 | MHC.SHP ---
Pre-Procedural Eval Section A - 24 Hr Update-Section A only Date of Service: 11/18/25 The patient is an INPATIENT: No The patient has been examined within 24 hours of the surgical procedure. The History & Physical has been completed within 30 days and I have reviewed it.: No Section B - Complete if H&P > 30 days Chief Complaint: screening,gerd, Relevant Family History (Specify if Yes): No Relevant Social History: Tobacco Use (Former smoker) Present Medications: see Short Stay Collaborative assessment Medical History: Significant History (Overweight (BMI 25.0-29.9) Pure hypercholesterolemia Hx of coronary angiogram Insomnia Coronary atherosclerosis Prostate cancer GERD (gastroesophageal reflux disease)) History of Previous Operations: Relevant previous surgery/procedure and date(s) (S/P drug eluting coronary stent placement (~03/25/23) Stented coronary artery History of right inguinal hernia repair (~04/2009) History of inguinal hernia repair History of tonsillectomy and adenoidectomy) Allergies: Allergies Allergy/AdvReac Type Severity Reaction Status Date / Time No Known Allergies Allergy Mild NKA Verified 10/09/25 17:14 Review of Systems Sugical H&P ROS: Negative: Constitution, Cardiovascular and Respiratory and Yes, Specify: Gastrointestinal (change in bowel habits) Exam Surgical H&P Exam: Normal: Heart, Normal: Lungs, Normal: Extremities and Normal: Abdomen Plan Diagnosis/Plan: Unchanged I have reviewed the history and physical and performed a pertinent physical examination on my patient. No changes have occurred unless specified. Time Spent With Patient Time: Total time managing care of this patient today ____ minutes.
[2025-11-18] MEDS: Lactated Ringers 1,000 ML 100 ML IVCONT (08:35)
--- NOTE | 2025-11-18 10:15 | P.OPN-COLO_ITS ---
Colonoscopy Operative Note Operative Note Date of Service: 11/18/25 Narrative: FLEXIBLE TRANSORAL UPPER GASTROINTESTINAL ENDOSCOPY WITH BIOPSIES AND COLONOSCOPY TILL CECUM WITH [] Pre-op diagnosis: Colon cancer screening, GERD Post-op diagnosis: GERD, Gastritis, Colon Polyps, Diverticulosis, hemorrhoids Endoscopist:Haile Tong MD Anesthesia:?MAC UPPER ENDOSCOPY Consent: Indications for the procedure and potential complications of bleeding, perforation, reaction to medications and missed diagnosis were discussed with the patient and informed consent was obtained. Instrument: Olympus GIF H 190 mid size upper endoscope Monitoring: Vital signs and clinical assessment, continuous EKG monitoring, Pulse oximetry, Carbon Dioxide monitoring and blood pressure monitoring were done throughout the procedure. Procedure: The patient was placed in the left lateral decubitis position and pre-procedure medications were administered and a bite block was placed. The endoscope was inserted into the mouth and advanced under direct vision to the third part of duodenum. A careful inspection was made as the upper endoscope was withdrawn including a retroflexed examination of the proximal stomach; Findings and interventions are described below. Findings: Larynx: Normal Esophagus: GE junction at [] cms. No esophagitis or Beckford's. Stomach: Multiple 1-2 cms benign appearing polyps in the gastric fundus - biopsied. Moderate diffuse gastric erythema - biopsies were obtained from the antrum. Grade 2 flap valve on retroflexed examination of the cardia. Duodenum: Normal bulb and descending duodenum Biopsies were obtained from descending duodenum to check for celiac sprue Intervention: Biopsies as noted above COLONOSCOPY PROCEDURE NOTE Instrument: Olympus [PCF H 190 L] [CF H 190 L] variable stiffness [adult] [pediatric] colonoscope Monitoring: Vital signs and clinical assessment, intermittent blood pressure monitoring, continuous EKG monitoring, Pulse oximetry and Carbon Dioxide monitoring were done throughout the procedure. Please see anesthesia flowsheet. Colon withdrawl time was [ ] minutes. Procedure: The patient was placed in the left lateral decubitis position and pre-procedure medications were administered. After a digital rectal examination of the ano-rectum, the video colonoscope was inserted into the rectum and advanced through the colon to the cecum. The colonoscope was slowly withdrawn in a retrograde panoramic fashion and the colon mucosa was carefully examined including a retroflexed view of the rectum. Findings and interventions are described below. Procedure Difficulty: [without difficulty] [LLQ pressure was applied to intubate the cecum/ascending colon] Findings: Terminal Ileum: Not evaluated Cecum: Normal Ascending Colon: Normal Transverse Colon: Normal Descending Colon: Normal Sigmoid Colon: Moderate diverticulosis Rectum: Normal Ano-rectum: Moderate internal hemorrhoids Colon preparation: [Excellent], [Good] [Fair] [Poor] after [some] [copious] irrigation. [place] Bowel Preparation Scale Right colon; [ ] Transverse colon: [ ] Left colon; [ ] (0 = Unprepared colon segment with mucosa not seen due to solid stool that cannot be cleared. 1 = Portion of mucosa of the colon segment seen, but other areas of the colon segment not well seen due to staining, residual stool and/or opaque liquid. 2 = Minor amount of residual staining, small fragments of stool and/or opaque liquid, but mucosa of colon segment seen well. 3 = Entire mucosa of colon segment seen well with no residual staining, small fragments of stool or opaque liquid) Impression and Post Procedure Diagnosis: Endoscopy Findings: ESOPHAGUS: [] STOMACH: [] DUODENUM: [] Colonoscopy Findings: [ ] polyp[s] were [detected] [removed] Moderate diverticulosis seen in the [sigmoid] [left] [entire] colon [Moderate] [small] [large] hemorrhoids on retroflexed exam. Plan: Pt has a FU appointment on [ ] with [Odette Caro NP], [MIRIAM Jo], [Leatha Morales], [Dr Tong] Repeat Colonoscopy in 3-5 years if polyps are adenomatous and 10 year if polyps are hyperplastic. A summary of above findings and relevant handouts were given to the patient.
--- NOTE | 2025-11-18 10:25 | W.PM.OPN ---
Operative Note Operative Note Date of Service: 11/18/25 Narrative: FLEXIBLE TRANSORAL UPPER GASTROINTESTINAL ENDOSCOPY WITH BIOPSIES Pre-op diagnosis: GERD, colon cancer screening Post-op diagnosis: Erosive esophagitis, hiatal hernia, Gastritis, duodenal diverticulum Endoscopist:? Thaddeus Tong MD Anesthesia:?MAC UPPER ENDOSCOPY Consent: Indications for the procedure and potential complications of bleeding, perforation, reaction to medications and missed diagnosis were discussed with the patient and informed consent was obtained. Instrument: Olympus GIF H 190 mid size upper endoscope Monitoring: Vital signs and clinical assessment, continuous EKG monitoring, Pulse oximetry, Carbon Dioxide monitoring and blood pressure monitoring were done throughout the procedure. Pt developed decreased oxygen saturation after EGD (PO2 of 55%) and improved after 100% oxygen was given by mask Procedure: The patient was placed in the left lateral decubitis position and pre-procedure medications were administered and a bite block was placed. The endoscope was inserted into the mouth and advanced under direct vision to the third part of duodenum. A careful inspection was made as the upper endoscope was withdrawn including a retroflexed examination of the proximal stomach; Findings and interventions are described below. Findings: Larynx: Normal Esophagus: GE junction at 35 cms. Erosive esophagitis 30 to 35 cms with scattered linear erosions. Large hiatal hernia from 35-40 cms Stomach: Moderate amount of retained food in the gastric fundus. Moderate gastric antral erythema - biopsies were obtained from the antrum. Retroflexed examination of the cardia was not performed due to retained food Duodenum: Normal bulb and a large diverticulum in the descending duodenum Intervention: Biopsies as noted above Impression and Post Procedure Diagnosis: Endoscopy Findings: ESOPHAGUS: STOMACH: DUODENUM: Plan: Pt has a FU appointment on 12/02/25 with Leatha Morales NP Pt was scheduled for same day colonoscopy which was not performed since pt aspirated during EGD and there was undigested food in the stomach. Pt reported he had been on a clear liquid diet the day before. Gastric emptying study to rule out gastroparesis Repeat EGD (FU of erosive esophagitis) in 4-6 months with clear liquid diet 1.5 days prior to the procedure Since pt had a negative cologuard, colonoscopy can be deferred for another 2 years Above findings were reviewed with the patient and relevant handouts were given and the discharge area.
--- NOTE | 2025-11-18 10:47 | PM.ANESPN ---
Subjective Subjective Date of Service: 11/18/25 Interval history: Event note: Aspiration during EGD and anesthesia. Physical Exam Vital Signs: Vital Signs: Last Vital Signs Temp 97.9 F 11/18/25 10:36 Pulse 79 11/18/25 10:36 Resp 14 11/18/25 10:36 BP 85/61 L 11/18/25 10:36 Pulse Ox 91 L 11/18/25 10:36 O2 Del Method Nasal Cannula 11/18/25 10:36 O2 Flow Rate 2 11/18/25 10:36 BMI result Body Mass Index 25.1 Progress Note: A&P Time Spent With Patient Time: Total time managing care of this patient today ____ minutes. Procedures Date of Service Date of Service: 11/18/25
--- NOTE | 2025-11-18 13:17 | PC.NURSE ---
WILIAN SPEAKING WITHOUT DIFFICULTY. NO APPARENT SOB. PATIENT INSTRUCTED TO CALL DR. DAVIS WITH ANY DIFFICULTIES AND/OR GO THE EMERGENCY ROOM, PATIENT ASPIRATED DURING PROCEDURE.
--- NOTE | 2025-11-18 15:04 | HO.ANESEVENT ---
Anesthesia Event Note Date of Service: 11/18/25 Event Note: Patient aspirated during anesthesia for EGD. At the end of the EGD, the patient developed laryngospasm. Coincidentally Dr. Tong voiced that food was noted in the stomach during the procedure. Vigorous jaw thrust was applied to break the laryngospasm, which was partly (audibly) successful. When the Sat cont to drop, PP by facemask w vigorous jaw thrust via the anesth circuit w 100% oxygen was applied. The patient was noted to vomit food material. The oroph was sxnd. Gradually the Sat came up as tidal vols increased. It was decided to cancel the colonoscopy. The patient started to cough a lot, which interfered w good spont ventil. He was given two doses of fentanyl to treat the cough and the tachypnea. As he woke up, PP was discontinued and Sats incr to high 90s on [place] oxygen. The patient was tx to PACU in improving condition. By arrival to PACU, RR was 20-22, nonlabored. Time Spent With Patient Time: Total time managing care of this patient today _32_ minutes.
== END 2025-11-18 13:20 | disposition home or self-care (01) ==
PROVIDERS: PCP Internal Medicine; Visit Provider Internal Medicine Gastroenterology
PROC: (CPT 43239; principal; 2025-11-18 09:30)
DX: K21.00 Gastro-esophageal reflux disease with esophagitis, without bleeding (principal); K29.70 Gastritis, unspecified, without bleeding; K44.9 Diaphragmatic hernia without obstruction or gangrene; K57.10 Diverticulosis of small intestine without perforation or abscess without bleeding
CPT/HCPCS: 43239; 71045; 88305; 88342; J2003; J2704; J3010

== ENCOUNTER → 2025-11-18 10:43 | Outpatient (BNV) | payer MEDICARE, SELFPAY | PROVIDERS: PCP Internal Medicine; Visit Provider Radiology Diagnostic Radiology | DX: Z03.89 Encounter for observation for other suspected diseases and conditions ruled out (principal) | CPT/HCPCS: 71045 ==

== ENCOUNTER → 2025-11-27 07:45 | Outpatient (BNV) | payer MEDICARE, SELFPAY | PROVIDERS: Emergency Provider Emergency Medicine Emergency Medical Services; PCP Internal Medicine; Visit Provider Radiology Diagnostic Radiology | DX: R09.02 Hypoxemia (principal); J18.0 Bronchopneumonia, unspecified organism; R05.9 Cough, unspecified | CPT/HCPCS: 71046; 71275 ==

== ENCOUNTER → 2025-11-27 08:42 | Outpatient (BNV) | payer MEDICARE, SELFPAY | PROVIDERS: Admitting Provider Student in an Organized Health Care Education/Training Program; Emergency Provider Emergency Medicine Emergency Medical Services; PCP Internal Medicine; Visit Provider Internal Medicine | DX: I49.1 Atrial premature depolarization (principal) | CPT/HCPCS: 93010 ==

== ENCOUNTER → 2025-11-27 12:44 | Outpatient (BNV) | payer MEDICARE, SELFPAY | PROVIDERS: Admitting Provider Student in an Organized Health Care Education/Training Program; Emergency Provider Emergency Medicine Emergency Medical Services; PCP Internal Medicine; Visit Provider Student in an Organized Health Care Education/Training Program | DX: J96.01 Acute respiratory failure with hypoxia (principal) | CPT/HCPCS: 99223 ==